=== PATIENT | female | born 1965 | race Caucasian/White ===

== ENCOUNTER 2017-03-29 11:20 | Emergency (ER) | payer MEDICAID ==
[~2017-03-29] VITALS: Ht 5451.6 cm; Wt 82.3 kg
[~2017-03-29 11:20] MED LIST: ALBU8HFA PO; BACL10TA PO; BECL8.7A7 INH; FURO-150 PO; GABA600T2 PO; HYDR-3972 PO; LOSA25TA21 PO; MIRT15TA8 PO; SUMA50TA PO
[2017-03-29 12:47] LABS: URINE HCG NEGATIVE (NEG)
[2017-03-29 13:00] LABS: URINE AMPHETAMINE SCREEN NEGATIVE (Neg); URINE BARBITUATE SCREEN NEGATIVE (Neg); URINE BENZODIAZEPINES SCREEN NEGATIVE (Neg); URINE CANNABINOID SCREEN POSITIVE (Neg); URINE COCAINE SCREEN NEGATIVE (Neg); URINE METHADONE SCREEN NEGATIVE (Neg); URINE OPIATE SCREEN NEGATIVE (Neg); URINE PHENCYCLIDINE SCREEN NEGATIVE (Neg)
[2017-03-29 13:05] LABS: CLARITY,URINE SLIGHTLY CLOUDY (Clear); COLOR,URINE STRAW (Yellow); GLUCOSE, URINE NEGATIVE (Neg); KETONES,URINE NEGATIVE (Neg); LEUKOCYTE ESTERASE ,URINE NEGATIVE (Neg); NITRITES, URINE NEGATIVE (Neg); OCCULT BLOOD,URINE NEGATIVE (Neg); PROTEIN,URINE NEGATIVE (Neg); UROBILINOGEN,URINE 0.2 E.U/dL (0.2-1.0)
[2017-03-29 13:10] LABS: UA COLLECTION TYPE NON-SPECIFIED
[2017-03-29 13:11] LABS: BACTERIA,URINE 1+ /HPF (Neg); SQUAMOUS EPITHELIAL CELL,UR MODERATE /LPF (FEW)
[2017-03-29 13:12] LABS: RBC,URINE 0-2 /HPF (0-2); WBC,URINE 0-4 /HPF (0-4)
[2017-03-29 14:47] LABS: BASOPHILS % (AUTO) 0.4 % (0-1); EOSINOPHILS # (AUTO) 0.2 X10'3 (0-0.9); EOSINOPHILS % (AUTO) 2.7 % (0-6); HEMATOCRIT 45.1 % (35.0-45.0); HEMOGLOBIN 15.4 g/dl (12.0-16.0); LYMPHOCYTES # (AUTO) 2.8 X10'3 (1.1-4.8); LYMPHOCYTES % (AUTO) 34.3 % (21-51); MEAN CORPUSCULAR HEMOGLOBIN 30.4 PG (27.0-31.0); MEAN CORPUSCULAR VOLUME 89.3 FL (78-98); MONOCYTES # (AUTO) 0.5 X10'3 (0-0.9); MONOCYTES % (AUTO) 6.4 % (2-12); NEUTROPHILS # (AUTO) 4.6 X10'3 (1.8-7.7); NEUTROPHILS % (AUTO) 56.2 % (42-75); PLATELET COUNT 206 X10'3 (140-440); RED BLOOD COUNT 5.05 X10'6 (4.20-5.60); RED CELL DISTRIBUTION WIDTH 14.4 % (11.5-14.5); WHITE BLOOD COUNT 8.2 X10'3 (4.5-11.0)
[2017-03-29] MEDS ORDERED: MELO-102 PO (14:51)
[2017-03-29] MEDS ORDERED: ALBU18HF2 INH (14:51)
[2017-03-29] MEDS ORDERED: IPRA3AMP9 IH (14:51)
[2017-03-29] MEDS ORDERED: MIRT15TA PO (14:51)
[2017-03-29] MEDS ORDERED: GABA600T2 PO (14:51)
[2017-03-29] MEDS ORDERED: FENO67CA PO (14:51)
[2017-03-29] MEDS ORDERED: PANT40SU2 PO (14:51)
[2017-03-29] MEDS ORDERED: MOME0.242 IH (14:51)
[2017-03-29 15:12] LABS: ALANINE AMINOTRANSFERASE 26 U/L (12-78); ALBUMIN 3.5 G/DL (3.4-5.0); ALBUMIN/GLOBULIN RATIO 0.9 (1.1-1.5); ALKALINE PHOSPHATASE 85 IU/L (46-116); ANION GAP 9 (8-16); ASPARTATE AMINO TRANSFERASE 17 U/L (10-37); BILIRUBIN,TOTAL 0.3 MG/DL (0.1-1.0); BLOOD UREA NITROGEN 10 MG/DL (7-18); BUN/CREATININE RATIO 12.5 (6.6-38.0); CALCIUM 8.8 MG/DL (8.5-10.1); CHLORIDE 102 MMOL/L (99-107); ETHANOL < 0.010 GM/DL (0.0-0.010); GLUCOSE 133 MG/DL (70-104); POTASSIUM 3.4 MMOL/L (3.5-5.1); SODIUM 137 MMOL/L (135-145); TOTAL CARBON DIOXIDE 26.4 MMOL/L (24-32); TOTAL PROTEIN 7.3 G/DL (6.4-8.2); eGFR 76 ML/MIN
[2017-03-29] MEDS ORDERED: PALI819S (15:27)
[2017-03-29] MEDS ORDERED: ARIP400S3 IM (15:27)
[2017-03-29] MEDS ORDERED: albuterol 2.5 MG/3 ML nebule NEB PRN (15:40)
[2017-03-29] MEDS ORDERED: furosemide 20MG tablet PO PRN (15:40)
[2017-03-29] MEDS ORDERED: ipratropium/albuterol 3ml nebule IH PRN (15:45)
[2017-03-29] MEDS: naproxen 500mg tablet PO SCH (18:03)
[2017-03-29] MEDS: HYDROcodone/acetaminophen 10/325mg tab PO PRN (19:47)
[2017-03-29] MEDS: gabapentin 300mg capsule PO SCH (20:50)
[2017-03-29] MEDS: mirtazapine 15mg tablet PO SCH (20:50)
[2017-03-29] MEDS: baclofen 10mg tablet PO SCH (20:58)
[2017-03-30] MEDS ORDERED: pantoprazole 40mg Tablet.DR PO SCH (07:30)
[2017-03-30] MEDS ORDERED: fluticasone furoate 100MCG/puff inhaler IH SCH (08:00)
[2017-03-30] MEDS: fenofibrate 48mg tablet PO SCH ×2 (08:30→08:48)
[2017-03-30] MEDS: naproxen 500mg tablet PO SCH ×3 (08:47→20:29)
[2017-03-30] MEDS: gabapentin 300mg capsule PO SCH ×3 (08:50→20:30)
[2017-03-30] MEDS: baclofen 10mg tablet PO SCH ×2 (08:50→20:24)
[2017-03-30] MEDS: HYDROcodone/acetaminophen 10/325mg tab PO PRN (15:30)
[2017-03-30] MEDS ORDERED: hydrOXYzine 25 MG tablet PO PRN (16:25)
[2017-03-30] MEDS: mirtazapine 15mg tablet PO SCH (20:30)
[2017-03-31 05:38] VITALS: BP 138/79
== END 2017-03-31 06:46 ==
LOC: ER 11:21
DX: F29 Unspecified psychosis not due to a substance or known physiological condition (principal); F20.9 Schizophrenia, unspecified; F41.9 Anxiety disorder, unspecified; F32.9 Major depressive disorder, single episode, unspecified; J44.9 Chronic obstructive pulmonary disease, unspecified; K21.9 Gastro-esophageal reflux disease without esophagitis; E78.00 Pure hypercholesterolemia, unspecified; G89.29 Other chronic pain; I25.2 Old myocardial infarction; F17.200 Nicotine dependence, unspecified, uncomplicated; Z86.73 Personal history of transient ischemic attack (TIA), and cerebral infarction without residual deficits; Z79.899 Other long term (current) drug therapy; Z88.0 Allergy status to penicillin; Z88.8 Allergy status to other drugs, medicaments and biological substances
CPT/HCPCS: 36415; 80053; 80305; 80320; 81001; 81025; 84443; 85025; 94760; 99285; Q0177

== ENCOUNTER 2018-04-09 09:43 | Emergency (ER) | payer MEDICAID ==
[~2018-04-09] VITALS: Ht 157.5 cm; Wt 88.3 kg
[~2018-04-09 09:43] MED LIST changes: +ALBU18HF2 INH; -ALBU8HFA PO; +ARIP400S3 IM; +FENO67CA PO; +GABA600T13 PO; -GABA600T2 PO; +IPRA3AMP9 IH; -LOSA25TA21 PO; +MELO-102 PO; +MIRT15TA PO; -MIRT15TA8 PO; +MOME0.242 IH; +PALI819S; +PANT40SU2 PO; -SUMA50TA PO
[2018-04-09 09:49] VITALS: BP 140/96
[2018-04-09] MEDS ORDERED: dexamethasone sod phosphate 10mg/ml inj PO STA (10:07)
== END 2018-04-09 10:30 | disposition home or self-care (01) ==
LOC: ER 09:43
DX: G89.29 Other chronic pain (principal); M54.5 Low back pain; G43.909 Migraine, unspecified, not intractable, without status migrainosus; E78.00 Pure hypercholesterolemia, unspecified; I25.2 Old myocardial infarction; J44.9 Chronic obstructive pulmonary disease, unspecified; K21.9 Gastro-esophageal reflux disease without esophagitis; M19.90 Unspecified osteoarthritis, unspecified site; Z86.73 Personal history of transient ischemic attack (TIA), and cerebral infarction without residual deficits; Z88.0 Allergy status to penicillin; Z88.8 Allergy status to other drugs, medicaments and biological substances; Z79.899 Other long term (current) drug therapy
CPT/HCPCS: 99284; J1100

== ENCOUNTER 2019-04-27 12:29 | Inpatient (IN) | payer MEDICAID ==
[~2019-04-27] VITALS: Ht 157.5 cm; Wt 86.8 kg
[2019-04-27] MEDS: normal saline 1000ml 1,000 ML IV SCH ×3 (11:33→17:31)
[~2019-04-27 12:29] MED LIST changes: -ARIP400S3 IM; -BACL10TA PO; -HYDR-3972 PO; -IPRA3AMP9 IH; -MELO-102 PO; -MIRT15TA PO; -MOME0.242 IH; -PALI819S; +RISP4TAB PO
[2019-04-27 12:58] LABS: BASOPHILS # (AUTO) 0.1 X10'3 (0-0.2); BASOPHILS % (AUTO) 0.5 % (0-1); EOSINOPHILS % (AUTO) 0.2 % (0-6); HEMATOCRIT 39.2 % (35.0-45.0); HEMOGLOBIN 13.2 g/dl (12.0-16.0); LYMPHOCYTES % (AUTO) 8.8 % (21-51); MEAN CORPUSCULAR HGB CONC 33.6 g/dL (33.0-36.5); MEAN CORPUSCULAR VOLUME 89.4 FL (78-98); MEAN PLATELET VOLUME 8.5 FL (7.4-10.4); MONOCYTES # (AUTO) 1.9 X10'3 (0-0.9); MONOCYTES % (AUTO) 8.2 % (2-12); NEUTROPHILS # (AUTO) 18.7 X10'3 (1.8-7.7); NEUTROPHILS % (AUTO) 82.3 % (42-75); PLATELET COUNT 230 X10'3 (140-440); RED BLOOD COUNT 4.39 X10'6 (4.20-5.60); RED CELL DISTRIBUTION WIDTH 13.9 % (11.5-14.5); WHITE BLOOD COUNT 22.7 X10'3 (4.5-11.0)
[2019-04-27 13:19] LABS: ALANINE AMINOTRANSFERASE 25 U/L (12-78); ALBUMIN 3.1 G/DL (3.4-5.0); ALBUMIN/GLOBULIN RATIO 0.7 (1.1-1.5); ALKALINE PHOSPHATASE 106 IU/L (46-116); ANION GAP 7 (8-16); ASPARTATE AMINO TRANSFERASE 18 U/L (10-37); BILIRUBIN,TOTAL 0.5 MG/DL (0.1-1.0); BLOOD UREA NITROGEN 7 MG/DL (7-18); BUN/CREATININE RATIO 7.4 (6.6-38.0); CALCIUM 8.3 MG/DL (8.5-10.1); CHLORIDE 99 MMOL/L (99-107); CREATININE 0.94 MG/DL (0.40-0.90); GLUCOSE 117 MG/DL (70-104); POTASSIUM 3.6 MMOL/L (3.5-5.1); SODIUM 132 MMOL/L (135-145); TOTAL CARBON DIOXIDE 26.2 MMOL/L (24-32); TOTAL PROTEIN 7.7 G/DL (6.4-8.2); eGFR 63 ML/MIN
[2019-04-27] MEDS ORDERED: levoFLOXACIN-Levaquin 750MG/D5 150 ML IV ONE (13:40)
[2019-04-27] MEDS ORDERED: ipratropium/albuterol 3ml nebule NEB ONE (13:40)
[2019-04-27] MEDS ORDERED: acetaminophen 325mg tablet PO ONE (14:50)
[2019-04-27] MEDS ORDERED: magnesium 2GM in 50ml NS 50 ML IV PRN (15:35)
[2019-04-27] MEDS ORDERED: ondansetron/PF 4mg/2ml inj IV PRN (15:35)
[2019-04-27] MEDS ORDERED: magnesium Cl slow-release 64mg tablet PO PRN (15:35)
[2019-04-27] MEDS ORDERED: HYDROcodone/acetaminophen 5mg/325mg tablet PO PRN (15:35)
[2019-04-27] MEDS ORDERED: potassium Cl 20 mEq SR tablet PO PRN ×2 (15:35)
[2019-04-27] MEDS ORDERED: acetaminophen 325mg tablet PO PRN ×2 (15:35)
[2019-04-27] MEDS ORDERED: potassium CL 10mEq/100ml bag 100 ML IV PRN ×2 (15:35)
[2019-04-27] MEDS ORDERED: mag hydrox/Alum hydrox/simeth 30ml oral suspension PO PRN (15:35)
[2019-04-27] MEDS ORDERED: morphine 2 MG/ML inj. syringe IV PRN (15:35)
[2019-04-27] MEDS ORDERED: magnesium 4gm in 100ml NS 100 ML IV PRN (15:35)
[2019-04-27] MEDS ORDERED: BUPR100T5 PO (15:51)
[2019-04-27] MEDS: albuterol 2.5 MG/3 ML nebule NEB SCH ×3 (16:00→23:22)
--- NOTE | 2019-04-27 16:11 | NUR ---
pt reports it is ok to give info to these family members dad peri [phone] step mom [phone] sister lei [phone]
--- NOTE | 2019-04-27 16:39 | NUR ---
Called to give report, no RN available to take report.
[2019-04-27 16:51] LABS: CLARITY,URINE SLIGHTLY CLOUDY (Clear); GLUCOSE, URINE NEGATIVE (Neg); KETONES,URINE 15 mg/dl (Neg); LEUKOCYTE ESTERASE ,URINE NEGATIVE (Neg); NITRITES, URINE NEGATIVE (Neg); OCCULT BLOOD,URINE TRACE-INTACT (Neg); PROTEIN,URINE TRACE mg/dl (Neg)
[2019-04-27 16:57] LABS: COLOR,URINE DARK YELLOW (Yellow); UA COLLECTION TYPE CLN CATCH MIDSTREAM
[2019-04-27 16:58] LABS: BACTERIA,URINE 2+ /HPF (Neg); MUCUS STRANDS NONE SEEN /LPF (Neg); SQUAMOUS EPITHELIAL CELL,UR MANY /LPF (FEW); WBC,URINE 0-4 /HPF (0-4)
--- NOTE | 2019-04-27 16:59 | NUR ---
Patient in room ED 16. I have received report from Bertin ER Nurse and had the opportunity to ask questions and assume patient care.
--- NOTE | 2019-04-27 17:28 | NUR ---
Patient oriented to room, call light within reach, fluids set up, Patient on 2L o2, A&O x4. VS stable.
[2019-04-27 17:29] VITALS: BP 95/50
--- NOTE | 2019-04-27 18:25 | NUR ---
Problems reprioritized. Patient report given, questions answered & plan of care reviewed with Ro GRIFFIN.
--- NOTE | 2019-04-27 18:30 | NUR ---
Patient in room [facility] 344. I have received report from Glory GRIFFIN and had the opportunity to ask questions and assume patient care.
[2019-04-27 20:00] VITALS: BP 104/53
[2019-04-27] MEDS: K and/or MAG REPLACEMENT MC SCH (20:00)
[2019-04-27] MEDS: budesonide 0.5mg/2ml UD nebule IH SCH (20:07)
[2019-04-27] MEDS: docusate sod 100mg capsule PO SCH (20:08)
[2019-04-27] MEDS: methylPREDNISolone sod succ/PF 40mg inj. IV SCH (20:10)
[2019-04-27] MEDS: VANCOmycin 1250MG/NS 250ml Bag 250 ML IV SCH (20:11)
[2019-04-27] MEDS: nicotine 14mg patch - 24hr TD SCH (20:12)
--- NOTE | 2019-04-27 20:13 | NUR ---
Patient refused Nicotine patch. Explained benefits of Nicotine patch, patient decline at this time.
[2019-04-27] MEDS: gabapentin 300mg capsule PO SCH (20:26)
[2019-04-27] MEDS: risperiDONE 2mg tablet PO SCH (20:26)
[2019-04-27] MEDS ORDERED: temazepam 15mg capsule PO PRN (21:00)
[2019-04-28] MEDS: albuterol 2.5 MG/3 ML nebule NEB SCH ×6 (02:47→23:40)
[2019-04-28] MEDS ORDERED: VANCOMYCIN LEVEL IV ONE (04:30)
[2019-04-28] MEDS: VANCOmycin 1250MG/NS 250ml Bag 250 ML IV SCH ×2 (04:47→16:49)
[2019-04-28] MEDS: normal saline 1000ml 1,000 ML IV SCH ×2 (04:49→16:51)
[2019-04-28 04:55] LABS: BASOPHILS % (AUTO) 0.2 % (0-1); EOSINOPHILS % (AUTO) 0 % (0-6); HEMATOCRIT 40.2 % (35.0-45.0); HEMOGLOBIN 13.3 g/dl (12.0-16.0); LYMPHOCYTES # (AUTO) 1.7 X10'3 (1.1-4.8); MEAN CORPUSCULAR HEMOGLOBIN 30.1 PG (27.0-31.0); MEAN CORPUSCULAR HGB CONC 33.1 g/dL (33.0-36.5); MEAN CORPUSCULAR VOLUME 90.9 FL (78-98); MEAN PLATELET VOLUME 9.1 FL (7.4-10.4); MONOCYTES # (AUTO) 0.6 X10'3 (0-0.9); MONOCYTES % (AUTO) 2.8 % (2-12); NEUTROPHILS # (AUTO) 18.5 X10'3 (1.8-7.7); PLATELET COUNT 237 X10'3 (140-440); RED BLOOD COUNT 4.42 X10'6 (4.20-5.60); RED CELL DISTRIBUTION WIDTH 13.9 % (11.5-14.5); WHITE BLOOD COUNT 20.8 X10'3 (4.5-11.0)
[2019-04-28 05:01] LABS: ALANINE AMINOTRANSFERASE 23 U/L (12-78); ALBUMIN 2.6 G/DL (3.4-5.0); ALBUMIN/GLOBULIN RATIO 0.5 (1.1-1.5); ALKALINE PHOSPHATASE 104 IU/L (46-116); ANION GAP 10 (8-16); ASPARTATE AMINO TRANSFERASE 21 U/L (10-37); BILIRUBIN,TOTAL 0.4 MG/DL (0.1-1.0); BLOOD UREA NITROGEN 9 MG/DL (7-18); CALCIUM 8.1 MG/DL (8.5-10.1); CHLORIDE 103 MMOL/L (99-107); CREATININE 0.82 MG/DL (0.40-0.90); GLUCOSE 153 MG/DL (70-104); MAGNESIUM 2.1 MG/DL (1.5-2.4); SODIUM 137 MMOL/L (135-145); TOTAL CARBON DIOXIDE 23.9 MMOL/L (24-32); TOTAL PROTEIN 7.4 G/DL (6.4-8.2); eGFR 73 ML/MIN
[2019-04-28 05:05] LABS: POTASSIUM 3.6 MMOL/L (3.5-5.1)
--- NOTE | 2019-04-28 06:48 | NUR ---
Problems reprioritized. Patient report given, questions answered & plan of care reviewed with Pat GRIFFIN.
--- NOTE | 2019-04-28 07:06 | NUR ---
Patient in room [facility] 344. I have received report from Ro GRIFFIN and had the opportunity to ask questions and assume patient care.
[2019-04-28 08:00] VITALS: BP 102/73
[2019-04-28] MEDS: nicotine 14mg patch - 24hr TD SCH (08:00)
[2019-04-28] MEDS: K and/or MAG REPLACEMENT MC SCH ×2 (08:00→20:00)
[2019-04-28] MEDS: budesonide 0.5mg/2ml UD nebule IH SCH ×2 (08:00→18:51)
[2019-04-28] MEDS: methylPREDNISolone sod succ/PF 40mg inj. IV SCH ×2 (08:03→21:11)
[2019-04-28] MEDS: docusate sod 100mg capsule PO SCH ×2 (08:04→21:12)
[2019-04-28] MEDS: gabapentin 300mg capsule PO SCH ×3 (08:04→21:11)
[2019-04-28] MEDS: pantoprazole 40mg Tablet.DR PO SCH (08:04)
[2019-04-28] MEDS: buPROPion SR 100mg tab PO SCH (08:04)
[2019-04-28] MEDS: levoFLOXACIN-Levaquin 500mg/D5 100 ML IV SCH (08:06)
[2019-04-28 11:00] VITALS: BP 139/112
--- NOTE | 2019-04-28 16:30 | NUR ---
Problems reprioritized. Patient report given, questions answered & plan of care reviewed with Ro GRIFFIN.
--- NOTE | 2019-04-28 18:31 | NUR ---
Patient in room [facility] 344. I have received report from Pat GRIFFIN and had the opportunity to ask questions and assume patient care.
[2019-04-28 20:10] VITALS: BP 107/60
[2019-04-28] MEDS: lactobacillus rhamnosus 10,000 MMU CELLS/CAPSULE PO SCH (21:11)
[2019-04-28] MEDS: risperiDONE 2mg tablet PO SCH (21:14)
[2019-04-29] VITALS: BP 113/70
[2019-04-29] MEDS: albuterol 2.5 MG/3 ML nebule NEB SCH ×6 (02:56→23:44)
[2019-04-29] MEDS: normal saline 1000ml 1,000 ML IV SCH (04:17)
[2019-04-29] MEDS ORDERED: VANCOMYCIN LEVEL IV ONE (04:30)
[2019-04-29 04:51] LABS: BASOPHILS # (AUTO) 0.1 X10'3 (0-0.2); LYMPHOCYTES # (AUTO) 2.1 X10'3 (1.1-4.8); MEAN CORPUSCULAR HEMOGLOBIN 30.3 PG (27.0-31.0); MEAN CORPUSCULAR VOLUME 91.1 FL (78-98)
[2019-04-29 04:53] LABS: BASOPHILS % (AUTO) 0.3 % (0-1); EOSINOPHILS % (AUTO) 0 % (0-6); HEMATOCRIT 39.5 % (35.0-45.0); HEMOGLOBIN 13.2 g/dl (12.0-16.0); LYMPHOCYTES % (AUTO) 7.9 % (21-51); MEAN CORPUSCULAR HGB CONC 33.3 g/dL (33.0-36.5); MEAN PLATELET VOLUME 9.3 FL (7.4-10.4); MONOCYTES # (AUTO) 0.8 X10'3 (0-0.9); NEUTROPHILS # (AUTO) 23.6 X10'3 (1.8-7.7); NEUTROPHILS % (AUTO) 88.8 % (42-75); PLATELET COUNT 249 X10'3 (140-440); RED BLOOD COUNT 4.34 X10'6 (4.20-5.60); RED CELL DISTRIBUTION WIDTH 13.9 % (11.5-14.5)
[2019-04-29 05:09] LABS: WHITE BLOOD COUNT 26.6 X10'3 (4.5-11.0)
--- NOTE | 2019-04-29 05:12 | NUR ---
Critical WBC 26.6, notified that patient is on Vancomycin and Levaquin and afebrile. No new orders.
[2019-04-29 05:26] LABS: ALANINE AMINOTRANSFERASE 25 U/L (12-78); ALBUMIN 2.6 G/DL (3.4-5.0); ALBUMIN/GLOBULIN RATIO 0.6 (1.1-1.5); ALKALINE PHOSPHATASE 92 IU/L (46-116); ANION GAP 10 (8-16); ASPARTATE AMINO TRANSFERASE 10 U/L (10-37); BILIRUBIN,TOTAL 0.2 MG/DL (0.1-1.0); BLOOD UREA NITROGEN 12 MG/DL (7-18); BUN/CREATININE RATIO 15.2 (6.6-38.0); CALCIUM 8.5 MG/DL (8.5-10.1); CHLORIDE 104 MMOL/L (99-107); CREATININE 0.79 MG/DL (0.40-0.90); GLUCOSE 162 MG/DL (70-104); MAGNESIUM 2.2 MG/DL (1.5-2.4); POTASSIUM 4.2 MMOL/L (3.5-5.1); SODIUM 137 MMOL/L (135-145); TOTAL CARBON DIOXIDE 22.7 MMOL/L (24-32); TOTAL PROTEIN 7.2 G/DL (6.4-8.2); VANCOMYCIN,TROUGH 9.7 UG/ML (6.0-14.0); eGFR 77 ML/MIN
[2019-04-29] MEDS: VANCOmycin 1250MG/NS 250ml Bag 250 ML IV SCH (05:59)
[2019-04-29 06:40] LABS: PLATELET ESTIMATE NORMAL; TOTAL CELLS COUNTED 100
[2019-04-29 06:48] LABS: SCHISTOCYTES FEW
--- NOTE | 2019-04-29 06:52 | NUR ---
Problems reprioritized. Patient report given, questions answered & plan of care reviewed with Joseph GRIFFIN.
--- NOTE | 2019-04-29 07:03 | NUR ---
Patient in room [facility] 344. I have received report from GABY RAMESH and had the opportunity to ask questions and assume patient care.
[2019-04-29 07:09] VITALS: BP 133/79
[2019-04-29] MEDS: gabapentin 300mg capsule PO SCH ×3 (07:32→20:13)
[2019-04-29] MEDS: pantoprazole 40mg Tablet.DR PO SCH (07:32)
[2019-04-29] MEDS: methylPREDNISolone sod succ/PF 40mg inj. IV SCH ×2 (07:32→20:12)
[2019-04-29] MEDS: docusate sod 100mg capsule PO SCH ×2 (07:33→20:00)
[2019-04-29] MEDS: buPROPion SR 100mg tab PO SCH (07:33)
[2019-04-29] MEDS: levoFLOXACIN-Levaquin 500mg/D5 100 ML IV SCH (07:33)
[2019-04-29] MEDS: lactobacillus rhamnosus 10,000 MMU CELLS/CAPSULE PO SCH ×2 (07:33→20:13)
[2019-04-29] MEDS: nicotine 14mg patch - 24hr TD SCH (08:00)
[2019-04-29] MEDS: K and/or MAG REPLACEMENT MC SCH ×2 (08:00→20:00)
[2019-04-29] MEDS: budesonide 0.5mg/2ml UD nebule IH SCH ×2 (08:36→19:42)
[2019-04-29 11:04] VITALS: BP 115/60
--- NOTE | 2019-04-29 18:20 | NUR ---
Received report from GABY Ruiz. Patient is awake and alert on room air, in no apparent distress. Call light and items of frequent use within reach. Will continue to monitor.
--- NOTE | 2019-04-29 18:44 | NUR ---
Problems reprioritized. Patient report given, questions answered & plan of care reviewed with mike lopez.
[2019-04-29 20:00] VITALS: BP 154/88
[2019-04-29] MEDS: risperiDONE 2mg tablet PO SCH (20:13)
[2019-04-30] VITALS: BP 122/68
[2019-04-30] MEDS: normal saline 1000ml 1,000 ML IV SCH (03:33)
--- NOTE | 2019-04-30 03:44 | NUR ---
Primary Care Nurse GABY Ruiz stated in report that patient is saline locked and no longer on IV fluids per MD order. Hence, no IV fluids were administered this shift. Will need to clarify order since eMAR shows patient is still on fluids.
[2019-04-30 05:19] LABS: BASOPHILS % (AUTO) 0.3 % (0-1); EOSINOPHILS % (AUTO) 0 % (0-6); HEMATOCRIT 38.3 % (35.0-45.0); HEMOGLOBIN 12.5 g/dl (12.0-16.0); LYMPHOCYTES # (AUTO) 1.7 X10'3 (1.1-4.8); LYMPHOCYTES % (AUTO) 11.3 % (21-51); MEAN CORPUSCULAR HEMOGLOBIN 29.6 PG (27.0-31.0); MEAN CORPUSCULAR HGB CONC 32.6 g/dL (33.0-36.5); MEAN PLATELET VOLUME 8.7 FL (7.4-10.4); MONOCYTES # (AUTO) 0.7 X10'3 (0-0.9); MONOCYTES % (AUTO) 4.5 % (2-12); NEUTROPHILS # (AUTO) 12.9 X10'3 (1.8-7.7); NEUTROPHILS % (AUTO) 83.9 % (42-75); PLATELET COUNT 290 X10'3 (140-440); RED BLOOD COUNT 4.21 X10'6 (4.20-5.60); RED CELL DISTRIBUTION WIDTH 14.3 % (11.5-14.5); WHITE BLOOD COUNT 15.3 X10'3 (4.5-11.0)
[2019-04-30 05:30] LABS: ALANINE AMINOTRANSFERASE 38 U/L (12-78); ALBUMIN 2.6 G/DL (3.4-5.0); ALBUMIN/GLOBULIN RATIO 0.6 (1.1-1.5); ALKALINE PHOSPHATASE 100 IU/L (46-116); ANION GAP 6 (8-16); ASPARTATE AMINO TRANSFERASE 22 U/L (10-37); BILIRUBIN,TOTAL 0.1 MG/DL (0.1-1.0); BLOOD UREA NITROGEN 11 MG/DL (7-18); BUN/CREATININE RATIO 16.7 (6.6-38.0); CALCIUM 8.2 MG/DL (8.5-10.1); CHLORIDE 109 MMOL/L (99-107); CREATININE 0.66 MG/DL (0.40-0.90); GLUCOSE 134 MG/DL (70-104); MAGNESIUM 2.1 MG/DL (1.5-2.4); POTASSIUM 4.6 MMOL/L (3.5-5.1); SODIUM 141 MMOL/L (135-145); TOTAL PROTEIN 6.8 G/DL (6.4-8.2); eGFR > 90 ML/MIN
--- NOTE | 2019-04-30 06:15 | NUR ---
Problems reprioritized. Patient report given, questions answered & plan of care reviewed with GABY Ruiz.
--- NOTE | 2019-04-30 06:37 | NUR ---
Patient in room [facility] 344. I have received report from GABY MARES and had the opportunity to ask questions and assume patient care.
[2019-04-30 07:00] VITALS: BP 159/98
[2019-04-30] MEDS: methylPREDNISolone sod succ/PF 40mg inj. IV SCH (07:08)
[2019-04-30] MEDS: albuterol 2.5 MG/3 ML nebule NEB SCH ×2 (07:30→12:00)
[2019-04-30] MEDS: budesonide 0.5mg/2ml UD nebule IH SCH (07:30)
[2019-04-30] MEDS: docusate sod 100mg capsule PO SCH (08:00)
[2019-04-30] MEDS: nicotine 14mg patch - 24hr TD SCH (08:00)
[2019-04-30] MEDS: K and/or MAG REPLACEMENT MC SCH (08:00)
[2019-04-30] MEDS: levoFLOXACIN-Levaquin 500mg/D5 100 ML IV SCH (09:22)
[2019-04-30] MEDS: lactobacillus rhamnosus 10,000 MMU CELLS/CAPSULE PO SCH (09:23)
[2019-04-30] MEDS: gabapentin 300mg capsule PO SCH ×2 (09:23→12:29)
[2019-04-30] MEDS: pantoprazole 40mg Tablet.DR PO SCH (09:24)
[2019-04-30] MEDS: buPROPion SR 100mg tab PO SCH (09:24)
[2019-04-30] MEDS ORDERED: ALBU2.5V7 NEB (10:52)
[2019-04-30] MEDS ORDERED: PRED10TA23 PO (10:52)
[2019-04-30] MEDS ORDERED: LEVO500T2 PO (10:52)
--- NOTE | 2019-04-30 11:30 | NUR ---
pt up walking around Addendum: 04/30/19 at 1130 by Laura OSMAN Amended: Links added.
[2019-04-30 11:43] VITALS: BP 158/96
--- NOTE | 2019-04-30 12:04 | NUR ---
Student documentation: I have reviewed all interventions, assessments performed and documented by Laura FARRELL
--- NOTE | 2019-04-30 12:04 | NUR ---
Student Medication Administration: , all medication were reviewed, dispensed, administered and documented per hospital policy by Laura FARRELL
--- NOTE | 2019-04-30 12:32 | NUR ---
pt eating lunch waiting for ride refused tx radha mckeon at bedside aware odalys Addendum: 04/30/19 at 1233 by Kassie Jolly RT Amended: Links added.
[2019-04-30 12:33] VITALS: BP 158/96
[2019-04-30] MEDS ORDERED: SULF1TAB49 PO (13:18)
--- NOTE | 2019-04-30 13:20 | NUR ---
Patient A&O with no complaints. Discussed with patient discharge instructions and new prescriptions. Patient aware she has follow up appointment with her PCP Dr. Mayer on 05/08/19 at 1115. All questions regarding discharge answered. Patient is ready for DC but awaiting for her spouse to arrive for transportation.
[2019-04-30] MEDS ORDERED: AZIT500T2 PO (13:21)
[2019-04-30 13:33] VITALS: BP 149/99
--- NOTE | 2019-04-30 13:42 | NUR ---
Patient dc'd with all personal belongings accompanied by x1 staff and friend. Patient alert and oriented with no complaints and no s/s/s of apparent distress.
[2019-05-01] MEDS ORDERED: VANCOMYCIN LEVEL IV ONE (04:30)
== END 2019-04-30 13:42 | disposition home or self-care (01) | DRG 720 ==
LOC: ER 12:30 → ED HOLD 15:33 → EDBEDREQ 16:14 → SUR 3N 17:18
PROVIDERS: ADMIT Internal Medicine; ATTEND Internal Medicine
DX: A41.9 Sepsis, unspecified organism (principal); J18.9 Pneumonia, unspecified organism; I50.9 Heart failure, unspecified; E87.1 Hypo-osmolality and hyponatremia; E78.00 Pure hypercholesterolemia, unspecified; F17.210 Nicotine dependence, cigarettes, uncomplicated; F20.9 Schizophrenia, unspecified; K21.9 Gastro-esophageal reflux disease without esophagitis; J44.0 Chronic obstructive pulmonary disease with (acute) lower respiratory infection; G62.9 Polyneuropathy, unspecified; J44.1 Chronic obstructive pulmonary disease with (acute) exacerbation; M81.0 Age-related osteoporosis without current pathological fracture; I25.2 Old myocardial infarction; Z79.899 Other long term (current) drug therapy; Z86.73 Personal history of transient ischemic attack (TIA), and cerebral infarction without residual deficits; Z87.01 Personal history of pneumonia (recurrent); Z88.0 Allergy status to penicillin
CPT/HCPCS: 36415; 71045; 80053; 80202; 81001; 83605; 83735; 84484; 85025; 87040; 87081; 93005; 93306; 94640; 94760; 99285; G0378; J1956; J2920; J3370; J7030; J7626

== ENCOUNTER 2019-05-06 16:01 | Inpatient (IN) | payer MEDICAID ==
[~2019-05-06] VITALS: Ht 157.5 cm; Wt 89.8 kg
[~2019-05-06 16:01] MED LIST changes: +ALBU2.5V7 NEB; +AZIT500T2 PO; -BECL8.7A7 INH; +BUPR100T5 PO; -FENO67CA PO; +PRED10TA23 PO; +SULF1TAB49 PO
[2019-05-06 17:21] LABS: BASOPHILS % (AUTO) 0.2 % (0-1); EOSINOPHILS % (AUTO) 0 % (0-6); HEMATOCRIT 38.8 % (35.0-45.0); HEMOGLOBIN 12.8 g/dl (12.0-16.0); LYMPHOCYTES % (AUTO) 17.3 % (21-51); MEAN CORPUSCULAR HEMOGLOBIN 29.9 PG (27.0-31.0); MEAN CORPUSCULAR VOLUME 90.4 FL (78-98); MEAN PLATELET VOLUME 7.2 FL (7.4-10.4); MONOCYTES # (AUTO) 0.7 X10'3 (0-0.9); MONOCYTES % (AUTO) 5.8 % (2-12); NEUTROPHILS # (AUTO) 8.7 X10'3 (1.8-7.7); NEUTROPHILS % (AUTO) 76.7 % (42-75); PLATELET COUNT 355 X10'3 (140-440); RED BLOOD COUNT 4.29 X10'6 (4.20-5.60); RED CELL DISTRIBUTION WIDTH 14.8 % (11.5-14.5); WHITE BLOOD COUNT 11.3 X10'3 (4.5-11.0)
[2019-05-06 17:32] LABS: ALANINE AMINOTRANSFERASE 40 U/L (12-78); ALBUMIN/GLOBULIN RATIO 0.8 (1.1-1.5); ALKALINE PHOSPHATASE 110 IU/L (46-116); ANION GAP 4 (8-16); ASPARTATE AMINO TRANSFERASE 25 U/L (10-37); BILIRUBIN,TOTAL 0.1 MG/DL (0.1-1.0); BLOOD UREA NITROGEN 15 MG/DL (7-18); BUN/CREATININE RATIO 16.3 (6.6-38.0); CALCIUM 8.4 MG/DL (8.5-10.1); CHLORIDE 97 MMOL/L (99-107); CREATININE 0.92 MG/DL (0.40-0.90); GLUCOSE 129 MG/DL (70-104); POTASSIUM 4.7 MMOL/L (3.5-5.1); SODIUM 133 MMOL/L (135-145); TOTAL CARBON DIOXIDE 32.2 MMOL/L (24-32); eGFR 64 ML/MIN
[2019-05-06] MEDS ORDERED: albuterol 2.5 MG/3 ML nebule NEB ONE (17:45)
[2019-05-06] MEDS ORDERED: predniSONE 20 mg tablet PO ONE (17:45)
[2019-05-06 17:56] LABS: TOTAL CELLS COUNTED 100; TOXIC GRANULATION 3+
[2019-05-06 17:57] LABS: PLATELET ESTIMATE NORMAL
--- NOTE | 2019-05-06 18:25 | NUR ---
placed o2 3 liters via nc to maintain sats above 93 %
[2019-05-06] MEDS ORDERED: normal saline 1000ML IV soln IVB ONE (18:30)
--- NOTE | 2019-05-06 18:48 | NUR ---
resp at bedside
[2019-05-06] MEDS ORDERED: LEVO500T89 PO (19:22)
[2019-05-06] MEDS ORDERED: AZIT250T29 PO (19:22)
[2019-05-06] MEDS ORDERED: BACDS PO (19:22)
[2019-05-06] MEDS ORDERED: levoFLOXACIN-Levaquin 500mg/D5 100 ML IV ONE (19:25)
[2019-05-06] MEDS ORDERED: AZIT-63 PO (20:24)
[2019-05-06] MEDS ORDERED: PRED10TA PO (20:24)
[2019-05-06] MEDS ORDERED: acetaminophen 325mg tablet PO PRN (22:45)
[2019-05-06] MEDS ORDERED: mag hydrox/Alum hydrox/simeth 30ml oral suspension PO PRN (22:45)
[2019-05-06] MEDS ORDERED: magnesium hydroxide 30ml (MOM) UD suspension PO PRN (22:45)
[2019-05-06] MEDS ORDERED: ondansetron/PF 4mg/2ml inj IV PRN (22:45)
[2019-05-06 23:30] VITALS: BP 128/72
[2019-05-06] MEDS: albuterol 2.5 MG/3 ML nebule NEB PRN (23:32)
--- NOTE | 2019-05-07 | NUR ---
Patient in room PCU 3014. I have received report from GABY Wilder and had the opportunity to ask questions and assume patient care.
[2019-05-07 02:00] VITALS: BP 158/97
[2019-05-07] MEDS: albuterol 2.5 MG/3 ML nebule NEB PRN ×4 (02:15→21:01)
[2019-05-07 02:26] LABS: ABG BASE EXCESS 4.8 mmol/L (-2.0-3.0); ABG HCO3 32.7 mmol/L (22.0-26.0); ABG OXYGEN SATURATION 93.3 % (95-98); ABG PH (T) 7.337 (7.350-7.450); ABG PO2 (T) 63.6 mmHg (83-108); ALLEN'S TEST POSITIVE; FCOHb 2.6 % (0.5-1.5); FMetHb 0.2 % (0.3-1.12); FO2Hb 90.7 % (94-100); PATIENT TEMPERATURE 36.5; TOTAL HEMOGLOBIN 13.9 G/dl (12.0-16.0)
[2019-05-07 04:59] LABS: BASOPHILS % (AUTO) 0.2 % (0-1); EOSINOPHILS % (AUTO) 0 % (0-6); HEMATOCRIT 39.4 % (35.0-45.0); HEMOGLOBIN 13.2 g/dl (12.0-16.0); LYMPHOCYTES # (AUTO) 1.9 X10'3 (1.1-4.8); LYMPHOCYTES % (AUTO) 19.3 % (21-51); MEAN CORPUSCULAR HEMOGLOBIN 30.5 PG (27.0-31.0); MEAN CORPUSCULAR HGB CONC 33.5 g/dL (33.0-36.5); MEAN CORPUSCULAR VOLUME 90.9 FL (78-98); MEAN PLATELET VOLUME 7.4 FL (7.4-10.4); MONOCYTES # (AUTO) 0.5 X10'3 (0-0.9); MONOCYTES % (AUTO) 4.8 % (2-12); NEUTROPHILS # (AUTO) 7.5 X10'3 (1.8-7.7); NEUTROPHILS % (AUTO) 75.7 % (42-75); PLATELET COUNT 336 X10'3 (140-440); RED BLOOD COUNT 4.34 X10'6 (4.20-5.60); RED CELL DISTRIBUTION WIDTH 14.5 % (11.5-14.5)
[2019-05-07 05:22] LABS: ALANINE AMINOTRANSFERASE 39 U/L (12-78); ALBUMIN 2.9 G/DL (3.4-5.0); ALBUMIN/GLOBULIN RATIO 0.7 (1.1-1.5); ALKALINE PHOSPHATASE 97 IU/L (46-116); ANION GAP 3 (8-16); ASPARTATE AMINO TRANSFERASE 26 U/L (10-37); BILIRUBIN,TOTAL 0.2 MG/DL (0.1-1.0); BLOOD UREA NITROGEN 11 MG/DL (7-18); BUN/CREATININE RATIO 17.2 (6.6-38.0); CALCIUM 8.4 MG/DL (8.5-10.1); CHLORIDE 100 MMOL/L (99-107); CREATININE 0.64 MG/DL (0.40-0.90); GLUCOSE 119 MG/DL (70-104); POTASSIUM 4.6 MMOL/L (3.5-5.1); SODIUM 136 MMOL/L (135-145); TOTAL CARBON DIOXIDE 33.1 MMOL/L (24-32); TOTAL PROTEIN 6.9 G/DL (6.4-8.2); eGFR > 90 ML/MIN
[2019-05-07 06:00] VITALS: BP 115/60
--- NOTE | 2019-05-07 06:10 | NUR ---
Patient in room PCU 3014. I have received report from GABY delong and had the opportunity to ask questions and assume patient care.
--- NOTE | 2019-05-07 06:34 | NUR ---
Problems reprioritized. Patient report given, questions answered & plan of care reviewed with GABY Cote.
[2019-05-07] MEDS: pantoprazole 40mg Tablet.DR PO SCH (08:12)
[2019-05-07] MEDS: levoFLOXACIN 500mg tablet PO SCH (08:12)
[2019-05-07] MEDS: gabapentin 300mg capsule PO SCH ×3 (08:12→20:35)
[2019-05-07] MEDS: buPROPion SR 100mg tab PO SCH (08:13)
[2019-05-07] MEDS: methylPREDNISolone sod succ/PF 40mg inj. IV SCH ×3 (08:13→21:15)
[2019-05-07] MEDS: heparin, porcine 5000 units/ml vial SQ SCH ×2 (08:13→20:35)
[2019-05-07] MEDS ORDERED: magnesium 4gm in 100ml NS 100 ML IV PRN (09:05)
[2019-05-07] MEDS: K and/or MAG REPLACEMENT MC SCH ×2 (09:05→19:21)
[2019-05-07] MEDS ORDERED: potassium Cl 20 mEq SR tablet PO PRN ×2 (09:05)
[2019-05-07] MEDS ORDERED: potassium CL 10mEq/100ml bag 100 ML IV PRN (09:05)
[2019-05-07] MEDS ORDERED: magnesium Cl slow-release 64mg tablet PO PRN (09:05)
[2019-05-07 18:00] VITALS: BP 131/72
--- NOTE | 2019-05-07 18:30 | NUR ---
Problems reprioritized. Patient report given, questions answered & plan of care reviewed with GABY Ferrell.
[2019-05-07] MEDS: lactobacillus rhamnosus 10,000 MMU CELLS/CAPSULE PO SCH (20:35)
[2019-05-07] MEDS ORDERED: risperiDONE 2mg tablet PO SCH (21:00)
[2019-05-07] MEDS ORDERED: ipratropium/albuterol 3ml nebule NEB PRN (21:20)
[2019-05-07 22:00] VITALS: BP 118/71
[2019-05-08] MEDS: ipratropium/albuterol 3ml nebule NEB SCH ×4 (00:01→11:07)
[2019-05-08 01:51] VITALS: BP 128/71
[2019-05-08] MEDS: methylPREDNISolone sod succ/PF 40mg inj. IV SCH ×3 (02:07→14:55)
[2019-05-08 06:00] VITALS: BP 128/84
--- NOTE | 2019-05-08 06:14 | NUR ---
Problems reprioritized. Patient report given, questions answered & plan of care reviewed with Kassandra GRIFFIN.
[2019-05-08 06:26] LABS: BASOPHILS % (AUTO) 0.2 % (0-1); EOSINOPHILS % (AUTO) 0 % (0-6); HEMATOCRIT 41.7 % (35.0-45.0); HEMOGLOBIN 13.8 g/dl (12.0-16.0); LYMPHOCYTES # (AUTO) 2.1 X10'3 (1.1-4.8); LYMPHOCYTES % (AUTO) 19.9 % (21-51); MEAN CORPUSCULAR HEMOGLOBIN 29.8 PG (27.0-31.0); MEAN CORPUSCULAR HGB CONC 33.1 g/dL (33.0-36.5); MEAN PLATELET VOLUME 7.6 FL (7.4-10.4); MONOCYTES # (AUTO) 0.3 X10'3 (0-0.9); MONOCYTES % (AUTO) 2.6 % (2-12); NEUTROPHILS # (AUTO) 8.3 X10'3 (1.8-7.7); NEUTROPHILS % (AUTO) 77.3 % (42-75); PLATELET COUNT 347 X10'3 (140-440); RED BLOOD COUNT 4.63 X10'6 (4.20-5.60); RED CELL DISTRIBUTION WIDTH 14.7 % (11.5-14.5); WHITE BLOOD COUNT 10.7 X10'3 (4.5-11.0)
--- NOTE | 2019-05-08 06:39 | NUR ---
Patient in room PCU 3014. I have received report from Mariaelena GRIFFIN and had the opportunity to ask questions and assume patient care.
[2019-05-08 06:42] LABS: ALANINE AMINOTRANSFERASE 38 U/L (12-78); ALBUMIN 3.1 G/DL (3.4-5.0); ALBUMIN/GLOBULIN RATIO 0.8 (1.1-1.5); ALKALINE PHOSPHATASE 93 IU/L (46-116); ANION GAP 3 (8-16); ASPARTATE AMINO TRANSFERASE 21 U/L (10-37); BILIRUBIN,TOTAL 0.2 MG/DL (0.1-1.0); BLOOD UREA NITROGEN 22 MG/DL (7-18); BUN/CREATININE RATIO 34.9 (6.6-38.0); CALCIUM 8.8 MG/DL (8.5-10.1); CHLORIDE 100 MMOL/L (99-107); CREATININE 0.63 MG/DL (0.40-0.90); GLUCOSE 137 MG/DL (70-104); MAGNESIUM 2.2 MG/DL (1.5-2.4); PHOSPHORUS 3.4 MG/DL (2.3-4.5); POTASSIUM 4.5 MMOL/L (3.5-5.1); SODIUM 137 MMOL/L (135-145); TOTAL CARBON DIOXIDE 33.7 MMOL/L (24-32); TOTAL PROTEIN 7.2 G/DL (6.4-8.2); eGFR > 90 ML/MIN
[2019-05-08] MEDS: gabapentin 300mg capsule PO SCH ×2 (07:24→12:43)
[2019-05-08] MEDS: levoFLOXACIN 500mg tablet PO SCH (07:24)
[2019-05-08] MEDS: lactobacillus rhamnosus 10,000 MMU CELLS/CAPSULE PO SCH (07:24)
[2019-05-08] MEDS: pantoprazole 40mg Tablet.DR PO SCH (07:24)
[2019-05-08] MEDS: buPROPion SR 100mg tab PO SCH (07:25)
[2019-05-08] MEDS: heparin, porcine 5000 units/ml vial SQ SCH (07:25)
[2019-05-08] MEDS: K and/or MAG REPLACEMENT MC SCH (08:00)
--- NOTE | 2019-05-08 08:12 | NUR ---
I have reviewed and agree with all medications administered and interventions performed by [facility] Student(emiliano kerr) Addendum: 05/08/19 at 0812 by Salud VEGA Amended: Links added.
[2019-05-08 11:00] VITALS: BP 133/77
[2019-05-08] MEDS ORDERED: LACT1CAP26 PO (12:49)
[2019-05-08] MEDS ORDERED: BUDE10.22 INH (12:49)
[2019-05-08] MEDS ORDERED: PRED10TA23 PO (12:49)
[2019-05-08] MEDS ORDERED: LEVO500T89 PO (12:49)
--- NOTE | 2019-05-08 15:44 | NUR ---
Per MD orders, patient is stable for DC home. Discharge packet reviewed with patient and all questions answered to patient satisfaction. New prescriptions called in to pharmacy of preference. Patient will make own follow up appt. PIV discontinued; cannula intact. Tele monitoring discontinued. All belongings sent with patient. Ambulated to private vehicle accompanied by nurse on duty and family friend.
== END 2019-05-08 15:25 | disposition home or self-care (01) | DRG 140 ==
LOC: ER 16:02 → ED HOLD 22:44 → EDBEDREQ 23:17 → PCU 3S 23:41
PROVIDERS: ADMIT Internal Medicine; ATTEND Family Medicine
DX: J44.0 Chronic obstructive pulmonary disease with (acute) lower respiratory infection (principal); E87.2 Acidosis; I50.9 Heart failure, unspecified; E78.00 Pure hypercholesterolemia, unspecified; F17.200 Nicotine dependence, unspecified, uncomplicated; F20.9 Schizophrenia, unspecified; F32.9 Major depressive disorder, single episode, unspecified; F41.9 Anxiety disorder, unspecified; G43.909 Migraine, unspecified, not intractable, without status migrainosus; G62.9 Polyneuropathy, unspecified; J20.9 Acute bronchitis, unspecified; G89.29 Other chronic pain; K21.9 Gastro-esophageal reflux disease without esophagitis; M19.90 Unspecified osteoarthritis, unspecified site; M54.9 Dorsalgia, unspecified; R06.03 Acute respiratory distress; J44.1 Chronic obstructive pulmonary disease with (acute) exacerbation; M85.80 Other specified disorders of bone density and structure, unspecified site; R09.02 Hypoxemia; Z86.73 Personal history of transient ischemic attack (TIA), and cerebral infarction without residual deficits; I25.2 Old myocardial infarction; Z88.0 Allergy status to penicillin; Z88.8 Allergy status to other drugs, medicaments and biological substances; Z99.81 Dependence on supplemental oxygen; Z71.6 Tobacco abuse counseling
CPT/HCPCS: 36415; 36600; 71045; 80053; 82803; 83735; 84100; 84145; 85018; 85025; 87081; 87502; 87503; 94640; 94760; 96365; 99285; G0378; J1644; J1956; J2920; J7030; J7512

== ENCOUNTER 2020-03-26 10:59 | Emergency (ER) | payer MEDICAID ==
[~2020-03-26] VITALS: Ht 157.5 cm; Wt 97.7 kg
[~2020-03-26 10:59] MED LIST changes: -ALBU2.5V7 NEB; -AZIT500T2 PO; +BUDE10.22 INH; -FURO-150 PO; +LACT1CAP26 PO; +LEVO500T89 PO; -PRED10TA23 PO; -SULF1TAB49 PO
[2020-03-26 11:07] VITALS: BP 141/91
[2020-03-26] MEDS ORDERED: PRED20TA PO (11:14)
[2020-03-26] MEDS ORDERED: ALBU8HFA PO (11:14)
[2020-03-26] MEDS ORDERED: DOXY100C43 PO (11:14)
[2020-03-26] MEDS ORDERED: dexamethasone sod phosphate 10mg/ml inj PO STA (11:29)
== END 2020-03-26 11:40 | disposition home or self-care (01) ==
LOC: ER 10:59
DX: J20.9 Acute bronchitis, unspecified (principal); R06.02 Shortness of breath; R05 Cough; Z20.822 Contact with and (suspected) exposure to COVID-19; G43.909 Migraine, unspecified, not intractable, without status migrainosus; I50.9 Heart failure, unspecified; E78.00 Pure hypercholesterolemia, unspecified; I25.2 Old myocardial infarction; J44.9 Chronic obstructive pulmonary disease, unspecified; K21.9 Gastro-esophageal reflux disease without esophagitis; G89.29 Other chronic pain; F41.9 Anxiety disorder, unspecified; F32.9 Major depressive disorder, single episode, unspecified; F20.9 Schizophrenia, unspecified; M19.90 Unspecified osteoarthritis, unspecified site; Z72.0 Tobacco use; Z86.73 Personal history of transient ischemic attack (TIA), and cerebral infarction without residual deficits; Z87.01 Personal history of pneumonia (recurrent); Z88.8 Allergy status to other drugs, medicaments and biological substances; Z79.2 Long term (current) use of antibiotics; Z79.899 Other long term (current) drug therapy
CPT/HCPCS: 36415; 87635; 99283; 99406; J1100

== ENCOUNTER 2020-06-06 10:54 | Emergency (ER) | payer MEDICAID ==
[~2020-06-06] VITALS: Ht 157.5 cm; Wt 96.4 kg
[2020-06-06 11:51] VITALS: BP 144/87
[2020-06-06] MEDS ORDERED: PRED20TA PO (13:44)
[2020-06-06] MEDS ORDERED: predniSONE 20 mg tablet PO ONE (13:45)
== END 2020-06-06 14:15 | disposition home or self-care (01) ==
LOC: ER 10:54
DX: M54.41 Lumbago with sciatica, right side (principal); K59.00 Constipation, unspecified; G43.909 Migraine, unspecified, not intractable, without status migrainosus; I50.9 Heart failure, unspecified; E78.00 Pure hypercholesterolemia, unspecified; I25.2 Old myocardial infarction; J44.9 Chronic obstructive pulmonary disease, unspecified; K21.9 Gastro-esophageal reflux disease without esophagitis; M19.90 Unspecified osteoarthritis, unspecified site; G89.29 Other chronic pain; F41.9 Anxiety disorder, unspecified; F32.9 Major depressive disorder, single episode, unspecified; F20.9 Schizophrenia, unspecified; Z86.73 Personal history of transient ischemic attack (TIA), and cerebral infarction without residual deficits; Z87.01 Personal history of pneumonia (recurrent); Z72.0 Tobacco use; Z88.8 Allergy status to other drugs, medicaments and biological substances; Z79.2 Long term (current) use of antibiotics; Z79.899 Other long term (current) drug therapy
CPT/HCPCS: 99283; J7512

== ENCOUNTER 2020-06-30 12:24 | Emergency (ER) | payer MEDICAID ==
[~2020-06-30] VITALS: Ht 157.5 cm; Wt 98.7 kg
[~2020-06-30 12:24] MED LIST changes: +PRED20TA PO
--- NOTE | 2020-06-30 13:05 | NUR ---
left ankle and foot pain on painscale 09/04
[2020-06-30 14:50] VITALS: BP 154/92
== END 2020-06-30 15:08 | disposition home or self-care (01) ==
LOC: ER 12:24
DX: M79.605 Pain in left leg (principal); G43.909 Migraine, unspecified, not intractable, without status migrainosus; I50.9 Heart failure, unspecified; E78.00 Pure hypercholesterolemia, unspecified; I25.2 Old myocardial infarction; J44.9 Chronic obstructive pulmonary disease, unspecified; K21.9 Gastro-esophageal reflux disease without esophagitis; M19.90 Unspecified osteoarthritis, unspecified site; G89.29 Other chronic pain; F41.9 Anxiety disorder, unspecified; F32.9 Major depressive disorder, single episode, unspecified; G62.9 Polyneuropathy, unspecified; F20.9 Schizophrenia, unspecified; Z86.73 Personal history of transient ischemic attack (TIA), and cerebral infarction without residual deficits; Z88.8 Allergy status to other drugs, medicaments and biological substances; Z79.899 Other long term (current) drug therapy
CPT/HCPCS: 73590; 73610; 73630; 93971; 99284

== ENCOUNTER 2020-07-23 12:05 | Emergency (ER) | payer MEDICAID ==
[~2020-07-23] VITALS: Ht 157.5 cm; Wt 95.9 kg
[~2020-07-23 12:05] MED LIST changes: -PRED20TA PO
[2020-07-23] MEDS ORDERED: dexamethasone 4mg tablet PO ONE (12:30)
[2020-07-23] MEDS ORDERED: ipratropium/albuterol 3ml nebule NEB ONE (13:10)
--- NOTE | 2020-07-23 13:11 | NUR ---
MD NOTIFIED OF PT'S C/O LEFT ARM PAIN THAT RADIATES TO HER LEFT SCAPULA, MD TO PLACE ORDERS, NO EKG, PER MD
[2020-07-23 13:28] LABS: BASOPHILS # (AUTO) 0.1 X10'3 (0-0.2); BASOPHILS % (AUTO) 0.4 % (0-1); EOSINOPHILS # (AUTO) 0.1 X10'3 (0-0.9); EOSINOPHILS % (AUTO) 0.3 % (0-6); HEMATOCRIT 38.7 % (35.0-45.0); HEMOGLOBIN 12.9 g/dl (12.0-16.0); LYMPHOCYTES # (AUTO) 2.7 X10'3 (1.1-4.8); LYMPHOCYTES % (AUTO) 15.3 % (21-51); MEAN CORPUSCULAR HEMOGLOBIN 29.4 PG (27.0-31.0); MEAN CORPUSCULAR HGB CONC 33.3 g/dL (33.0-36.5); MEAN CORPUSCULAR VOLUME 88.2 FL (78-98); MEAN PLATELET VOLUME 7.7 FL (7.4-10.4); MONOCYTES # (AUTO) 1.7 X10'3 (0-0.9); MONOCYTES % (AUTO) 9.6 % (2-12); NEUTROPHILS # (AUTO) 13.2 X10'3 (1.8-7.7); NEUTROPHILS % (AUTO) 74.4 % (42-75); PLATELET COUNT 319 X10'3 (140-440); RED BLOOD COUNT 4.39 X10'6 (4.20-5.60); RED CELL DISTRIBUTION WIDTH 14.3 % (11.5-14.5); WHITE BLOOD COUNT 17.7 X10'3 (4.5-11.0)
[2020-07-23 13:40] LABS: D-DIMER 0.31 MG/L FEU (0-0.50)
[2020-07-23 13:45] LABS: ALANINE AMINOTRANSFERASE 22 U/L (12-78); ALBUMIN 3.1 G/DL (3.4-5.0); ALBUMIN/GLOBULIN RATIO 0.6 (1.1-1.5); ALKALINE PHOSPHATASE 115 IU/L (46-116); ANION GAP 10 (8-16); ASPARTATE AMINO TRANSFERASE 17 U/L (10-37); BILIRUBIN,TOTAL 0.3 MG/DL (0.1-1.0); BLOOD UREA NITROGEN 7 MG/DL (7-18); BUN/CREATININE RATIO 9.3 (6.6-38.0); CHLORIDE 95 MMOL/L (99-107); CREATININE 0.75 MG/DL (0.40-0.90); GLUCOSE 112 MG/DL (70-104); POTASSIUM 4.1 MMOL/L (3.5-5.1); SODIUM 132 MMOL/L (135-145); TOTAL CARBON DIOXIDE 26.7 MMOL/L (24-32); TOTAL PROTEIN 7.9 G/DL (6.4-8.2); eGFR 81 ML/MIN
[2020-07-23] MEDS ORDERED: acetaminophen 325mg tablet PO ONE (13:45)
[2020-07-23] MEDS ORDERED: ALBU8HFA PO (13:49)
[2020-07-23] MEDS ORDERED: PRED20TA PO (13:49)
[2020-07-23] MEDS ORDERED: DOXY100C43 PO (13:49)
[2020-07-23] MEDS ORDERED: ketorolac trometh. 30mg/ml inj. IV ONE (15:00)
[2020-07-23 15:30] VITALS: BP 123/82
== END 2020-07-23 15:36 | disposition home or self-care (01) ==
LOC: ER 12:07
DX: J45.901 Unspecified asthma with (acute) exacerbation (principal); J20.9 Acute bronchitis, unspecified; F17.210 Nicotine dependence, cigarettes, uncomplicated; Z71.6 Tobacco abuse counseling; I11.0 Hypertensive heart disease with heart failure; E78.00 Pure hypercholesterolemia, unspecified; K21.9 Gastro-esophageal reflux disease without esophagitis; G89.29 Other chronic pain; M54.9 Dorsalgia, unspecified; F41.9 Anxiety disorder, unspecified; F32.9 Major depressive disorder, single episode, unspecified; F20.9 Schizophrenia, unspecified; Z88.0 Allergy status to penicillin; Z79.899 Other long term (current) drug therapy
CPT/HCPCS: 36415; 71045; 80053; 83880; 84484; 85025; 85379; 93005; 94640; 94760; 96374; 99285; 99406; J1885

== ENCOUNTER 2021-03-21 12:12 | Emergency (ER) | payer MEDICAID ==
[~2021-03-21] VITALS: Ht 157.5 cm; Wt 95.2 kg
[~2021-03-21 12:12] MED LIST changes: -LEVO500T89 PO; +LEVO500T90 PO; -RISP4TAB PO; +RISP4TAB49 PO
[2021-03-21 13:12] LABS: CLARITY,URINE CLEAR (Clear); COLOR,URINE YELLOW (Yellow); GLUCOSE, URINE NEGATIVE (Neg); KETONES,URINE NEGATIVE (Neg); LEUKOCYTE ESTERASE ,URINE NEGATIVE (Neg); NITRITES, URINE NEGATIVE (Neg); OCCULT BLOOD,URINE NEGATIVE (Neg); PROTEIN,URINE NEGATIVE (Neg); UA COLLECTION TYPE CLN CATCH MIDSTREAM; UROBILINOGEN,URINE 0.2 E.U/dL (0.2-1.0)
[2021-03-21 13:13] LABS: URINE HCG NEGATIVE (NEG)
[2021-03-21] MEDS ORDERED: FLUC150T PO (15:16)
[2021-03-21] MEDS ORDERED: METR-159 PO (15:16)
== END 2021-03-21 15:47 | disposition home or self-care (01) ==
LOC: ER 12:12
DX: K64.4 Residual hemorrhoidal skin tags (principal); N76.0 Acute vaginitis; B96.89 Other specified bacterial agents as the cause of diseases classified elsewhere; G43.909 Migraine, unspecified, not intractable, without status migrainosus; G62.9 Polyneuropathy, unspecified; I50.9 Heart failure, unspecified; E78.00 Pure hypercholesterolemia, unspecified; I25.2 Old myocardial infarction; J44.9 Chronic obstructive pulmonary disease, unspecified; K21.9 Gastro-esophageal reflux disease without esophagitis; M19.90 Unspecified osteoarthritis, unspecified site; Z88.1 Allergy status to other antibiotic agents; Z88.8 Allergy status to other drugs, medicaments and biological substances; Z79.899 Other long term (current) drug therapy
CPT/HCPCS: 36415; 81003; 81025; 87491; 99283

== ENCOUNTER 2022-10-22 13:26 | Inpatient (IN) | payer MEDICAID ==
[~2022-10-22] VITALS: Ht 157.5 cm; Wt 77.4 kg
[~2022-10-22 13:26] MED LIST changes: +LEVO-65 PO; -LEVO500T90 PO
[2022-10-22 13:48] LABS: BASOPHILS % (AUTO) 0.3 % (0-1); EOSINOPHILS # (AUTO) 0.1 X10'3 (0-0.9); HEMOGLOBIN 12.4 g/dl (12.0-16.0); LYMPHOCYTES # (AUTO) 2.3 X10'3 (1.1-4.8); LYMPHOCYTES % (AUTO) 18.8 % (21-51); MEAN CORPUSCULAR HEMOGLOBIN 29.5 PG (27.0-31.0); MEAN CORPUSCULAR HGB CONC 32.7 g/dL (33.0-36.5); MEAN CORPUSCULAR VOLUME 90.3 FL (78-98); MEAN PLATELET VOLUME 8.3 FL (7.4-10.4); MONOCYTES # (AUTO) 1.3 X10'3 (0-0.9); MONOCYTES % (AUTO) 10.3 % (2-12); NEUTROPHILS # (AUTO) 8.5 X10'3 (1.8-7.7); NEUTROPHILS % (AUTO) 69.6 % (42-75); PLATELET COUNT 268 X10'3 (140-440); RED BLOOD COUNT 4.21 X10'6 (4.20-5.60); RED CELL DISTRIBUTION WIDTH 14.6 % (11.5-14.5); WHITE BLOOD COUNT 12.2 X10'3 (4.5-11.0)
[2022-10-22] MEDS ORDERED: ipratropium/albuterol 3ml nebule NEB ONE (13:55)
[2022-10-22 14:01] VITALS: PULSE 98; RESP 18; O2SAT 95
[2022-10-22 14:06] VITALS: PULSE 97; RESP 18; O2SAT 100
[2022-10-22 14:06] LABS: ALANINE AMINOTRANSFERASE 31 U/L (12-78); ALBUMIN 2.9 G/DL (3.4-5.0); ALBUMIN/GLOBULIN RATIO 0.7 (1.1-1.5); ALKALINE PHOSPHATASE 107 IU/L (46-116); ANION GAP 4 (8-16); ASPARTATE AMINO TRANSFERASE 27 U/L (10-37); BILIRUBIN,TOTAL 0.3 MG/DL (0.1-1.0); BLOOD UREA NITROGEN 8 MG/DL (7-18); BUN/CREATININE RATIO 11.9 (10.0-20.0); CALCIUM 8.6 MG/DL (8.5-10.1); CHLORIDE 97 MMOL/L (99-107); CREATININE 0.67 MG/DL (0.40-0.90); GLUCOSE 124 MG/DL (70-104); POTASSIUM 3.7 MMOL/L (3.5-5.1); SODIUM 132 MMOL/L (135-145); TOTAL CARBON DIOXIDE 30.6 MMOL/L (24-32); TOTAL PROTEIN 7.2 G/DL (6.4-8.2); eCRCL 76 ML/MIN; eGFR > 90 ML/MIN
[2022-10-22] MEDS ORDERED: aspirin 81mg tab.chew PO ONE (14:10)
[2022-10-22] MEDS ORDERED: nitroGLYCERIN 0.4mg SUBLingual tab SL PRN ×3 (14:10→18:10)
[2022-10-22 14:14] LABS: PRO BRAIN NATRIURETIC PEPTIDE 781 PG/ML (0-125)
--- NOTE | 2022-10-22 14:33 | NUR ---
EKG ORDERED. MACHINE IS BROKEN AND IS CURRENTLY BEING REPAIRED. PT PLACED ON CLOTH PRINTER HELPER UNTIL REPAIR COMPLETE.
--- NOTE | 2022-10-22 14:40 | NUR ---
MACHINE HAS BEEN REPAIRED AND EKG IS BEING COMPLETED AT THIS TIME.
--- NOTE | 2022-10-22 16:20 | NUR ---
PT TROP [phone]. RN NOTIFIED DR LEONG.
[2022-10-22] MEDS ORDERED: normal saline 1000ml 1,000 ML IV ONE (17:00)
[2022-10-22] MEDS ORDERED: albuterol 2.5 MG/3 ML nebule CONTNEB PRN (17:00)
[2022-10-22] MEDS ORDERED: nitroGLYCERIN 0.4mg/hour patch TD ONE (17:00)
[2022-10-22] MEDS ORDERED: enoxaparin 100mg/ml syringe SUBCUT ONE (17:00)
[2022-10-22] MEDS ORDERED: methylPREDNISolone sod succ 125mg/2ml vial IV ONE (17:00)
--- NOTE | 2022-10-22 17:04 | NUR ---
PER DR LEONG RUN NS AT 50CC/HR. GABY LEMUS ORD.
[2022-10-22 17:17] LABS: APTT 27 SECONDS (22-32); PROTHROMBIN TIME 10.3 SECONDS (9.0-12.0)
[2022-10-22 17:18] LABS: C-REACTIVE PROTEIN 16.77 MG/DL (0.0-0.5); MAGNESIUM 1.6 MG/DL (1.5-2.4)
[2022-10-22 17:28] VITALS: PULSE 99; RESP 32; O2SAT 90
[2022-10-22] MEDS: normal saline 1000ml 1,000 ML IV SCH (17:39)
[2022-10-22] MEDS ORDERED: potassium Cl 40MEQ/1/2NS 520ml 520 ML IV PRN (18:10)
[2022-10-22] MEDS ORDERED: metoprolol tartrate 1mg/ml inj IV PRN (18:10)
[2022-10-22] MEDS ORDERED: acetaminophen 650mg rectal suppository RC PRN (18:10)
[2022-10-22] MEDS ORDERED: magnesium hydroxide 30ml (MOM) UD suspension PO PRN (18:10)
[2022-10-22] MEDS ORDERED: azithromycin/NS 500mg/250ml 250 ML IV ONE ×2 (18:10→19:35)
[2022-10-22] MEDS ORDERED: LORazepam 0.5 MG tablet PO PRN (18:10)
[2022-10-22] MEDS ORDERED: acetaminophen 325mg tablet PO PRN ×2 (18:10)
[2022-10-22] MEDS ORDERED: mag hydrox/Alum hydrox/simeth 30ml oral suspension PO PRN (18:10)
[2022-10-22] MEDS ORDERED: potassium Cl 20 mEq SR tablet PO PRN ×2 (18:10)
[2022-10-22] MEDS ORDERED: metoclopramide 5 mg/ml inj IV PRN (18:10)
[2022-10-22] MEDS ORDERED: normal saline 1000ml 1,000 ML IV SCH (18:10)
[2022-10-22] MEDS ORDERED: aminophylline 250mg/10ml inj. IV PRN (18:10)
[2022-10-22] MEDS ORDERED: ondansetron 4mg rapidly disintigrating tab PO PRN (18:10)
[2022-10-22] MEDS ORDERED: CefTRIAXone/D5W-Rocephin 1gm 50 ML IV ONE (18:10)
[2022-10-22] MEDS ORDERED: magnesium Cl slow-release 64mg tablet PO PRN (18:10)
[2022-10-22] MEDS ORDERED: ondansetron/PF 4mg/2ml inj IV PRN (18:10)
[2022-10-22] MEDS ORDERED: regadenoson 0.4mg/5ml syringe IV PRN (18:10)
[2022-10-22] MEDS ORDERED: magnesium 2GM in 50ml NS 50 ML IV PRN (18:10)
[2022-10-22] MEDS ORDERED: bisacodyl 10mg suppository rectal RC PRN (18:10)
[2022-10-22] MEDS ORDERED: magnesium 4gm in 100ml NS 100 ML IV PRN (18:10)
[2022-10-22] MEDS ORDERED: morphine 2 MG/ML inj. syringe IV PRN ×2 (18:10)
[2022-10-22 19:00] VITALS: PULSE 109; RESP 31; O2SAT 92
[2022-10-22] MEDS ORDERED: furosemide 40mg/4ml inj IV SCH (20:00)
[2022-10-22] MEDS: docusate sod 100mg capsule PO SCH (20:00)
[2022-10-22] MEDS: K and/or MAG REPLACEMENT MC SCH (20:00)
--- NOTE | 2022-10-22 20:00 | NUR ---
NITRO PATCH REMOVED R/T LOW BP
[2022-10-22] MEDS ORDERED: temazepam 15mg capsule PO PRN (21:00)
[2022-10-22] MEDS: ipratropium/albuterol 3ml nebule NEB SCH (23:00)
[2022-10-23] VITALS (21 sets, daily range): BP systolic 100–135; BP diastolic 56–83; PULSE 74–104; RESP 18–24; TEMP 96.9–98; O2SAT 88–97
[2022-10-23 02:33] LABS: BASOPHILS % (AUTO) 0.1 % (0-1); EOSINOPHILS % (AUTO) 0 % (0-6); HEMATOCRIT 37.7 % (35.0-45.0); HEMOGLOBIN 12.3 g/dl (12.0-16.0); LYMPHOCYTES # (AUTO) 0.8 X10'3 (1.1-4.8); MEAN CORPUSCULAR HEMOGLOBIN 29.4 PG (27.0-31.0); MEAN CORPUSCULAR HGB CONC 32.5 g/dL (33.0-36.5); MEAN CORPUSCULAR VOLUME 90.6 FL (78-98); MEAN PLATELET VOLUME 8.6 FL (7.4-10.4); MONOCYTES # (AUTO) 0.4 X10'3 (0-0.9); MONOCYTES % (AUTO) 3.8 % (2-12); NEUTROPHILS # (AUTO) 9.8 X10'3 (1.8-7.7); NEUTROPHILS % (AUTO) 89.1 % (42-75); PLATELET COUNT 258 X10'3 (140-440); RED BLOOD COUNT 4.17 X10'6 (4.20-5.60); RED CELL DISTRIBUTION WIDTH 14.6 % (11.5-14.5)
[2022-10-23 03:12] LABS: ALANINE AMINOTRANSFERASE 28 U/L (12-78); ALBUMIN 2.7 G/DL (3.4-5.0); ALBUMIN/GLOBULIN RATIO 0.6 (1.1-1.5); ALKALINE PHOSPHATASE 98 IU/L (46-116); ANION GAP 6 (8-16); ASPARTATE AMINO TRANSFERASE 23 U/L (10-37); BILIRUBIN,TOTAL 0.1 MG/DL (0.1-1.0); BLOOD UREA NITROGEN 6 MG/DL (7-18); BUN/CREATININE RATIO 10.2 (10.0-20.0); CALCIUM 8.4 MG/DL (8.5-10.1); CHLORIDE 101 MMOL/L (99-107); CREATININE 0.59 MG/DL (0.40-0.90); GLUCOSE 155 MG/DL (70-104); POTASSIUM 4.4 MMOL/L (3.5-5.1); SODIUM 136 MMOL/L (135-145); TOTAL CARBON DIOXIDE 29.5 MMOL/L (24-32); TOTAL PROTEIN 7.2 G/DL (6.4-8.2); eCRCL 86 ML/MIN; eGFR > 90 ML/MIN
[2022-10-23 03:20] LABS: CHOL/HDL RATIO 3.8 (0.00-4.99); CHOLESTEROL 160 MG/DL (0-200); HDL CHOLESTEROL 42 MG/DL (35-60); LDL CHOLESTEROL 91 MG/DL (50-100); MAGNESIUM 1.9 MG/DL (1.5-2.4); THYROID STIMULATING HORMONE 0.23 ulU/ml (0.34-4.50); TRIGLYCERIDES 78 MG/DL (20-135)
[2022-10-23] MEDS: ipratropium/albuterol 3ml nebule NEB PRN (04:16)
[2022-10-23] MEDS: normal saline 1000ml 1,000 ML IV SCH ×2 (04:28→14:11)
[2022-10-23 04:32] LABS: URINE AMPHETAMINE SCREEN NEGATIVE (Neg); URINE BARBITUATE SCREEN NEGATIVE (Neg); URINE BENZODIAZEPINES SCREEN NEGATIVE (Neg); URINE CANNABINOID SCREEN NEGATIVE (Neg); URINE COCAINE SCREEN NEGATIVE (Neg); URINE METHADONE SCREEN NEGATIVE (Neg); URINE OPIATE SCREEN NEGATIVE (Neg); URINE PHENCYCLIDINE SCREEN NEGATIVE (Neg)
[2022-10-23] MEDS: ipratropium/albuterol 3ml nebule NEB SCH ×5 (07:22→23:00)
[2022-10-23] MEDS: guaiFENesin ER 600mg tablet PO SCH ×2 (07:28→19:19)
[2022-10-23] MEDS: azithromycin/NS 500mg/250ml 250 ML IV SCH (07:28)
[2022-10-23] MEDS: aspirin 81mg tab.chew PO SCH (07:28)
[2022-10-23] MEDS: docusate sod 100mg capsule PO SCH ×2 (07:29→19:19)
[2022-10-23] MEDS: K and/or MAG REPLACEMENT MC SCH ×2 (08:00→20:00)
--- NOTE | 2022-10-23 08:45 | NUR ---
FOR D/C PLANNING: ANNIE BUCHANAN ENGINE OILER: [phone]
--- NOTE | 2022-10-23 10:20 | NUR ---
Patient in room PCU 3023. I have received report from GABY Hernandez in ER and had the opportunity to ask questions and assume patient care. Pt arrived on the unit from ER.
--- NOTE | 2022-10-23 11:39 | NUR ---
Pt off the floor via WC to Mike.
--- NOTE | 2022-10-23 13:10 | NUR ---
Pt back on unit from [facility].
[2022-10-23] MEDS ORDERED: ARIP15TA19 PO (17:45)
[2022-10-23] MEDS ORDERED: PANT40TA54 PO (17:45)
[2022-10-23] MEDS ORDERED: GABA600T13 PO (17:48)
--- NOTE | 2022-10-23 18:13 | NUR ---
Problems reprioritized. Patient report given, questions answered & plan of care reviewed with GABY Pickett.
--- NOTE | 2022-10-23 22:00 | NUR ---
Pt's IV would not flush, nurse tried placing a new IV and was unsuccessful. Nurse to notify .
[2022-10-24] VITALS (9 sets, daily range): BP systolic 117–131; BP diastolic 68–78; PULSE 72–91; RESP 14–20; TEMP 97.7–98.8; O2SAT 89–94
--- NOTE | 2022-10-24 | NUR ---
Nurse tried to notify MD regarding pt not receiving NS fluids d/t nopt having Iv access. Pt is drinking fluids. No rsponse from MD. Nurse will inform morning nurse of situation.
[2022-10-24] MEDS: normal saline 1000ml 1,000 ML IV SCH ×2 (00:23→10:23)
[2022-10-24] MEDS ORDERED: ondansetron 4mg rapidly disintigrating tab PO PRN (05:00)
[2022-10-24] MEDS: ipratropium/albuterol 3ml nebule NEB SCH ×2 (05:18→06:54)
[2022-10-24 06:11] LABS: MEAN CORPUSCULAR HEMOGLOBIN 29.7 PG (27.0-31.0); MEAN CORPUSCULAR HGB CONC 32.7 g/dL (33.0-36.5); MEAN CORPUSCULAR VOLUME 90.8 FL (78-98); MEAN PLATELET VOLUME 8.2 FL (7.4-10.4)
[2022-10-24 06:13] LABS: BASOPHILS % (AUTO) 0.2 % (0-1); EOSINOPHILS % (AUTO) 0.3 % (0-6); HEMATOCRIT 36.3 % (35.0-45.0); HEMOGLOBIN 11.9 g/dl (12.0-16.0); LYMPHOCYTES % (AUTO) 20.7 % (21-51); MONOCYTES % (AUTO) 6.8 % (2-12); NEUTROPHILS # (AUTO) 10.4 X10'3 (1.8-7.7); PLATELET COUNT 322 X10'3 (140-440); RED CELL DISTRIBUTION WIDTH 14.7 % (11.5-14.5); WHITE BLOOD COUNT 14.5 X10'3 (4.5-11.0)
[2022-10-24 06:27] LABS: ALANINE AMINOTRANSFERASE 49 U/L (12-78); ALBUMIN 2.8 G/DL (3.4-5.0); ALBUMIN/GLOBULIN RATIO 0.7 (1.1-1.5); ALKALINE PHOSPHATASE 100 IU/L (46-116); ANION GAP 6 (8-16); ASPARTATE AMINO TRANSFERASE 25 U/L (10-37); BILIRUBIN,TOTAL 0.2 MG/DL (0.1-1.0); BLOOD UREA NITROGEN 13 MG/DL (7-18); BUN/CREATININE RATIO 18.3 (10.0-20.0); CALCIUM 8.6 MG/DL (8.5-10.1); CHLORIDE 100 MMOL/L (99-107); CREATININE 0.71 MG/DL (0.40-0.90); GLUCOSE 113 MG/DL (70-104); MAGNESIUM 1.7 MG/DL (1.5-2.4); SODIUM 135 MMOL/L (135-145); TOTAL CARBON DIOXIDE 29.3 MMOL/L (24-32); eCRCL 72 ML/MIN; eGFR 86 ML/MIN
--- NOTE | 2022-10-24 06:36 | NUR ---
Problems reprioritized. Patient report given, questions answered & plan of care reviewed with Teresa GRIFFIN. Pt stable at shift change.
[2022-10-24] MEDS: docusate sod 100mg capsule PO SCH (08:00)
[2022-10-24] MEDS: K and/or MAG REPLACEMENT MC SCH (08:16)
[2022-10-24] MEDS: azithromycin/NS 500mg/250ml 250 ML IV SCH (08:19)
[2022-10-24] MEDS: aspirin 81mg tab.chew PO SCH (08:19)
[2022-10-24] MEDS: guaiFENesin ER 600mg tablet PO SCH (08:19)
[2022-10-24] MEDS: ipratropium/albuterol 3ml nebule NEB PRN (12:05)
[2022-10-24] MEDS ORDERED: ALBU18HF2 INH (13:10)
[2022-10-24] MEDS ORDERED: AZIT500T PO (13:10)
[2022-10-24] MEDS ORDERED: BENZ-38 PO (13:10)
[2022-10-24] MEDS ORDERED: ASPI-1265 PO (13:10)
--- NOTE | 2022-10-24 14:20 | NUR ---
Pt asking for discharge. MD notified and approved for discharge. Pt's PIV removed with cannula intact. Pt denies pain, Pt's discharge paperwork reviewed and questions answered. Pt's medications were called into pt's preferred pharmacy. Pt in NAD.
--- NOTE | 2022-10-25 15:02 | NUR ---
PATIENT CALLED AND SAID MEDICATIONS WERE NOT CALLED INTO PHARMACY . i CALLED IN HER RX TO [facility] PER HER REQUEST.
== END 2022-10-24 14:44 | disposition left against medical advice (07) | DRG 190 ==
LOC: ER 13:27 → ED HOLD 18:24 → PCU 3S 10-23 10:05
PROVIDERS: ADMIT Family Medicine; ATTEND Family Medicine
PROC: 4A02XM4 Measurement of Cardiac Total Activity, External Approach (ICD-10-PCS; principal; 2022-10-23)
PROC: 3E073KZ Introduction of Other Diagnostic Substance into Coronary Artery, Percutaneous Approach (ICD-10-PCS; 2022-10-23)
DX: R07.89 Other chest pain (principal); I21.A1 Myocardial infarction type 2; J96.01 Acute respiratory failure with hypoxia; I50.9 Heart failure, unspecified; E78.00 Pure hypercholesterolemia, unspecified; Z20.822 Contact with and (suspected) exposure to COVID-19; G43.909 Migraine, unspecified, not intractable, without status migrainosus; F17.210 Nicotine dependence, cigarettes, uncomplicated; F20.9 Schizophrenia, unspecified; Z53.21 Procedure and treatment not carried out due to patient leaving prior to being seen by health care provider; J44.1 Chronic obstructive pulmonary disease with (acute) exacerbation; F32.A Depression, unspecified; F41.9 Anxiety disorder, unspecified; G62.9 Polyneuropathy, unspecified; K21.9 Gastro-esophageal reflux disease without esophagitis; M19.90 Unspecified osteoarthritis, unspecified site; M54.9 Dorsalgia, unspecified; G89.29 Other chronic pain; E87.1 Hypo-osmolality and hyponatremia; Z79.82 Long term (current) use of aspirin; Z79.899 Other long term (current) drug therapy; Z86.73 Personal history of transient ischemic attack (TIA), and cerebral infarction without residual deficits; Z88.0 Allergy status to penicillin; Z88.8 Allergy status to other drugs, medicaments and biological substances; Z90.710 Acquired absence of both cervix and uterus; I25.2 Old myocardial infarction
CPT/HCPCS: 36415; 71045; 78452; 80053; 80061; 80305; 83605; 83735; 83880; 84145; 84443; 84484; 85025; 85610; 85730; 86140; 87040; 87070; 87811; 93005; 93017; 93306; 94640; 94664; 94668; 94760; 99285; A7015; A9500; G0378; J0456; J0696; J1650; J2785; J2930; J7030

== ENCOUNTER 2023-06-13 14:40 | Emergency (ER) | payer MEDICAID ==
[~2023-06-13] VITALS: Ht 160 cm; Wt 84.3 kg
[~2023-06-13 14:40] MED LIST changes: +ARIP15TA19 PO; -BUDE10.22 INH; -BUPR100T5 PO; -LACT1CAP26 PO; -LEVO-65 PO; -PANT40SU2 PO; +PANT40TA54 PO; -RISP4TAB49 PO
[2023-06-13 15:25] VITALS: TEMP 98
[2023-06-13 17:09] VITALS: BP 196/100; PULSE 84; RESP 16; O2SAT 97
== END 2023-06-13 17:11 | disposition home or self-care (01) ==
LOC: ER 14:41
DX: M79.604 Pain in right leg (principal); G43.909 Migraine, unspecified, not intractable, without status migrainosus; I50.9 Heart failure, unspecified; E78.00 Pure hypercholesterolemia, unspecified; J44.9 Chronic obstructive pulmonary disease, unspecified; K21.9 Gastro-esophageal reflux disease without esophagitis; M19.90 Unspecified osteoarthritis, unspecified site; Z88.0 Allergy status to penicillin; Z88.8 Allergy status to other drugs, medicaments and biological substances; Z79.899 Other long term (current) drug therapy
CPT/HCPCS: 73552; 73590; 93971; 99284

== ENCOUNTER 2023-07-24 05:14 | Emergency (ER) | payer MEDICAID ==
[~2023-07-24] VITALS: Ht 170.2 cm; Wt 8.7 kg
[2023-07-24] MEDS: normal saline 1000ml 1,000 ML IV ONE (05:56)
[2023-07-24 05:59] LABS: BILIRUBIN,URINE NEGATIVE (Neg); CLARITY,URINE CLEAR (Clear); COLOR,URINE YELLOW (Yellow); GLUCOSE, URINE NEGATIVE (Neg); KETONES,URINE NEGATIVE (Neg); LEUKOCYTE ESTERASE ,URINE NEGATIVE (Neg); NITRITES, URINE NEGATIVE (Neg); OCCULT BLOOD,URINE NEGATIVE (Neg); PH,URINE 6.5 (4.8-8.0); PROTEIN,URINE NEGATIVE (Neg); UROBILINOGEN,URINE 0.2 E.U/dL (0.2-1.0)
[2023-07-24] MEDS: ondansetron/PF 4mg/2ml inj IV ONE ×2 (05:59→09:11)
[2023-07-24] MEDS: famotidine/PF 10 mg/ml inj IV ONE (05:59)
[2023-07-24 06:05] LABS: BASOPHILS % (AUTO) 0.7 % (0-1); EOSINOPHILS # (AUTO) 0.2 X10'3 (0-0.9); EOSINOPHILS % (AUTO) 3.2 % (0-6); HEMATOCRIT 42.3 % (35.0-45.0); LYMPHOCYTES # (AUTO) 2.6 X10'3 (1.1-4.8); LYMPHOCYTES % (AUTO) 37.6 % (21-51); MEAN CORPUSCULAR HEMOGLOBIN 29.3 PG (27.0-31.0); MEAN CORPUSCULAR VOLUME 88.9 FL (78-98); MEAN PLATELET VOLUME 8.2 FL (7.4-10.4); MONOCYTES # (AUTO) 0.5 X10'3 (0-0.9); MONOCYTES % (AUTO) 7.5 % (2-12); NEUTROPHILS # (AUTO) 3.5 X10'3 (1.8-7.7); PLATELET COUNT 259 X10'3 (140-440); RED BLOOD COUNT 4.76 X10'6 (4.20-5.60); RED CELL DISTRIBUTION WIDTH 14.4 % (11.5-14.5); WHITE BLOOD COUNT 6.9 X10'3 (4.5-11.0)
[2023-07-24 06:09] LABS: UA COLLECTION TYPE CLN CATCH MIDSTREAM
[2023-07-24 06:16] VITALS: TEMP 97.4
[2023-07-24 06:17] LABS: ALANINE AMINOTRANSFERASE 46 U/L (12-78); ALBUMIN 3.6 G/DL (3.4-5.0); ALBUMIN/GLOBULIN RATIO 0.9 (1.1-1.5); ALKALINE PHOSPHATASE 147 IU/L (46-116); ANION GAP 8 (8-16); ASPARTATE AMINO TRANSFERASE 43 U/L (10-37); BILIRUBIN,TOTAL 0.2 MG/DL (0.1-1.0); BLOOD UREA NITROGEN 9 MG/DL (7-18); BUN/CREATININE RATIO 15.3 (10.0-20.0); CALCIUM 9.2 MG/DL (8.5-10.1); CHLORIDE 98 MMOL/L (99-107); CREATININE 0.59 MG/DL (0.40-0.90); GLUCOSE 90 MG/DL (70-104); SODIUM 133 MMOL/L (135-145); TOTAL PROTEIN 7.7 G/DL (6.4-8.2); eCRCL 15 ML/MIN; eGFR > 90 ML/MIN
[2023-07-24 06:19] LABS: LIPASE 35 U/L (16-77)
[2023-07-24 08:10] LABS: URINE AMPHETAMINE SCREEN NEGATIVE (Neg); URINE BARBITUATE SCREEN NEGATIVE (Neg); URINE BENZODIAZEPINES SCREEN NEGATIVE (Neg); URINE CANNABINOID SCREEN NEGATIVE (Neg); URINE COCAINE SCREEN NEGATIVE (Neg); URINE METHADONE SCREEN NEGATIVE (Neg); URINE PHENCYCLIDINE SCREEN NEGATIVE (Neg)
[2023-07-24] MEDS ORDERED: ONDA4TAB12 PO (08:32)
[2023-07-24] MEDS: ipratropium/albuterol 3ml nebule NEB ONE (08:51)
[2023-07-24 08:52] VITALS: PULSE 80; RESP 18; O2SAT 95
[2023-07-24 08:58] VITALS: PULSE 94; RESP 18; O2SAT 96
[2023-07-24 10:02] VITALS: BP 157/72; PULSE 74; RESP 17; O2SAT 96
== END 2023-07-24 10:06 | disposition home or self-care (01) ==
LOC: ER 05:15
DX: K29.00 Acute gastritis without bleeding (principal); R10.30 Lower abdominal pain, unspecified; Z88.0 Allergy status to penicillin; Z88.8 Allergy status to other drugs, medicaments and biological substances; Z86.73 Personal history of transient ischemic attack (TIA), and cerebral infarction without residual deficits; G43.909 Migraine, unspecified, not intractable, without status migrainosus; I50.9 Heart failure, unspecified; E78.00 Pure hypercholesterolemia, unspecified; I25.2 Old myocardial infarction; J45.909 Unspecified asthma, uncomplicated; J44.9 Chronic obstructive pulmonary disease, unspecified; K21.9 Gastro-esophageal reflux disease without esophagitis; M19.90 Unspecified osteoarthritis, unspecified site; G89.29 Other chronic pain; M54.9 Dorsalgia, unspecified; F32.A Depression, unspecified; F41.9 Anxiety disorder, unspecified; F20.9 Schizophrenia, unspecified; Z79.899 Other long term (current) drug therapy
CPT/HCPCS: 36415; 71045; 74176; 80053; 80305; 81003; 83690; 84145; 84484; 85025; 94640; 96361; 96374; 96375; 96376; 99285; J2405; J3490; J7030; 94760

== ENCOUNTER 2023-09-25 19:39 | Emergency (ER) | payer MEDICAID ==
[~2023-09-25] VITALS: Ht 157.5 cm; Wt 90.9 kg
[~2023-09-25 19:39] MED LIST changes: -ARIP15TA19 PO; +ARIP15TA68 PO; +ARIP400S3 IM; -GABA600T13 PO
[2023-09-25 19:43] VITALS: BP 127/78; PULSE 88; RESP 16; O2SAT 96
[2023-09-25 20:25] VITALS: TEMP 98.5
== END 2023-09-25 20:26 | disposition home or self-care (01) ==
LOC: ER 19:40
DX: M25.572 Pain in left ankle and joints of left foot (principal); G45.9 Transient cerebral ischemic attack, unspecified; I50.9 Heart failure, unspecified; E78.00 Pure hypercholesterolemia, unspecified; J44.9 Chronic obstructive pulmonary disease, unspecified; K21.9 Gastro-esophageal reflux disease without esophagitis; M19.90 Unspecified osteoarthritis, unspecified site; G89.29 Other chronic pain; M54.9 Dorsalgia, unspecified; F41.9 Anxiety disorder, unspecified; F32.A Depression, unspecified; Z88.0 Allergy status to penicillin; Z88.6 Allergy status to analgesic agent; Z88.8 Allergy status to other drugs, medicaments and biological substances; Z79.899 Other long term (current) drug therapy
CPT/HCPCS: 73610; 99283; A6449

== ENCOUNTER 2023-12-28 11:20 | Outpatient (CLI) | payer MEDICAID | END 2023-12-28 23:59 | disposition home or self-care (01) | LOC: RAD 11:20 | PROVIDERS: ATTEND Nurse Practitioner Psychiatric/Mental Health | DX: R94.31 Abnormal electrocardiogram [ECG] [EKG] (principal); Z79.899 Other long term (current) drug therapy | CPT/HCPCS: 93005 ==

== ENCOUNTER 2024-09-27 12:14 | Inpatient (IN) | payer MEDICAID ==
[~2024-09-27] VITALS: Ht 157.5 cm; Wt 85.2 kg
--- NOTE | 2024-09-27 12:30 | ELECTROCARDIOGRAPH REPORT ---
[facility] Test Date: 2024-09-27 Test Time: 12:28:32 Pat Name: DARSHAN ACOSTA Department: EMERGENCY ROOM Room: ED 6 Gender: F Materials Management Supervisor: HARSHAD : [id number] Requested By: NITO STOVER Order Number: [id number] Reading MD: Dr. Jefferson Apple Measurements Intervals [place] Rate: 88 P: 39 NJ: 143 QRS: 42 QRSD: 98 T: 92 QT: 359 QTc: 435 Interpretive Statements Sinus rhythm Low voltage, precordial leads Consider inferior infarct Abnrm T, consider ischemia, anterolateral lds Electronically Signed On 09-27-2024 18:25:[address] Jefferson Apple Please click the below link to view image of tracing.
[2024-09-27 13:26] LABS: MEAN PLATELET VOLUME 8.0 FL (7.4-10.4); RED CELL DISTRIBUTION WIDTH 15.1 % (11.5-14.5)
--- NOTE | 2024-09-27 13:27 | RADIOLOGY REPORT ---
CHEST RADIOGRAPH Indication: CP Technique: Single frontal view of the chest was obtained COMPARISON: DI CHEST,SINGLE VIEW on DOS: 07/24/23, DI CHEST,SINGLE VIEW on DOS: 10/22/22, CHEST,SINGLE VIEW on DOS: 07/23/20, CHEST,SINGLE VIEW on DOS: 05/06/19, CHEST,SINGLE VIEW on DOS: 04/27/19 FINDINGS: Lines and Tubes: None Lungs: Clear Pleura: No effusion. No pneumothorax. Cardiomediastinal contours: Unremarkable Bones: Unremarkable IMPRESSION: No acute disease.
[2024-09-27 13:49] LABS: CREATININE 0.80 MG/DL (0.40-0.90); PRO BRAIN NATRIURETIC PEPTIDE 399 PG/ML (0-125); TOTAL CARBON DIOXIDE 31.2 MMOL/L (24-32); eCRCL 62 ML/MIN; eGFR 74 ML/MIN
[2024-09-27 14:14] LABS: ETHANOL < 10 MG/DL (<10)
--- NOTE | 2024-09-27 15:45 | RADIOLOGY REPORT ---
CTA Chest with intravenous contrast INDICATION: HYPOXIA COMPARISON: DI CHEST,SINGLE VIEW on DOS: 09/27/24 TECHNIQUE: Multidetector spiral CTA of the chest was performed of the chest with 100 cc of omnipaque 350 intravenous contrast. PULMONARY ANGIOGRAPHY PROTOCOL was utilized using a bolus-tracking techniqu e centered on the main pulmonary artery. Coronal and sagittal multiplanar and MIP reformats were perf ormed. Radiation Dose : 1. Chest: CTDI volume is 24.9 mGy. Dose-length product is 969.2 mGy*cm The dose indicators for CT are the volume Computed Tomography (CT) Dose Index (CTDIvol) and the Dose Length Product (DLP), and are measured in units of mGy and mGy-cm, respectively. These indicators are not patient dose, but values generated from the CT scanner acquisition factors. The report includes radiation exposure data for exposures received during this examination. FINDINGS: Pulmonary artery: No central, lobar or proximal segmental pulmonary embolus. Lower neck: Unremarkable thyroid. Lungs: No suspicious pulmonary nodule. No focal airspace disease. Central airways: Patent. Pleura: No pneumothorax. No pleural effusions. Heart/Vascular Structures: The heart is slightly enlarged. No pericardial effusion. Thoracic aorta is normal in caliber. No aneurysm or dissection. Lymph Nodes: No mediastinal or hilar lymphadenopathy. Esophagus:Grossly unremarkable. Musculoskeletal: Unremarkable. Body wall: Unremarkable. Upper abdomen: Unremarkable. IMPRESSION: 1. No evidence of pulmonary embolism. 2. Cardiomegaly. HS:Y
[2024-09-27 15:55] LABS: LEUKOCYTE ESTERASE ,URINE NEGATIVE (Neg); NITRITES, URINE NEGATIVE (Neg); OCCULT BLOOD,URINE NEGATIVE (Neg)
--- NOTE | 2024-09-27 15:55 | RADIOLOGY REPORT ---
CLINICAL INDICATION: Worsening chronic back pain TECHNIQUE: CT of the lumbar spine was performed without intravenous contrast. Sagittal and coronal re formatted images are provided. All CT scans at this medical facility are performed using dose modula tion techniques as appropriate to a performed exam including the following: Automated exposure contro l was utilized; adjustment of the MA and/or KV according to patient size; and use of iterative recons truction technique. COMPARISON: None CT Dose: CTDI volume is 34.8 mGy. Dose-length product is 1025.7 mGy*cm FINDINGS: The alignment and curvature of the lumbar spine are preserved. The vertebral bodies are normal in hei ght. The intervertebral disc spaces are maintained. There is no evidence of spinal canal or neural fo raminal stenosis. The prevertebral soft tissues are unremarkable. Paraspinal muscles are also within normal limits. IMPRESSION: 1. No fracture or subluxation in the lumbar spine. HS:Y
[2024-09-27 15:56] LABS: UA COLLECTION TYPE URINAL
[2024-09-27 16:03] LABS: URINE AMPHETAMINE SCREEN NEGATIVE (Neg); URINE BARBITUATE SCREEN NEGATIVE (Neg); URINE BENZODIAZEPINES SCREEN NEGATIVE (Neg); URINE CANNABINOID SCREEN NEGATIVE (Neg); URINE COCAINE SCREEN NEGATIVE (Neg); URINE METHADONE SCREEN NEGATIVE (Neg); URINE OPIATE SCREEN NEGATIVE (Neg); URINE PHENCYCLIDINE SCREEN NEGATIVE (Neg)
--- NOTE | 2024-09-27 16:49 | Physician Documentation ---
History of Present Illness ~ Chief Complaint: Back Pain Stated Complaint: BACK AND LEG PAIN Time Seen by MD: 12:40 Primary Medical Doctor: jose rafael WOOD This is a 58-year-old female with a known chronic history of back pain who presents for evaluation of right-sided low back pain that has been present for the last four days. No obvious trigger provocation. The particular palliating factors. Did not attempt to treat it. Denies any red flags of back pain such as urinary incontinence, fecal incontinence, urinary retention, saddle paresthesias. Denies IV drug use. Denies blood thinners. She states that she recently has been admitted to this facility, was intubated, due to lithium overdose. During intubation evidently she suffered aspiration and was diagnosed with a aspiration pneumonia. She was prescribed Augmentin, how ever the closed door pharmacy and [facility] has not delivered that yet. She complains of shortness a breath. Denies any chest pain. Normally not wearing the oxygen. Was noted to be hypoxic at 88% in the waiting room. Smokes, denies use of alcohol or drugs. Record review indicates history of CVA, TIA, COPD. Medication Reconciliation Allergies: Coded Allergies: Penicillins (Unverified Allergy, Intermediate, 09/27/24) divalproex sodium (Verified Allergy, Mild, 09/27/24) simvastatin (Verified Adverse Reaction, Intermediate, BLURRED VISION AND SLEEPY., 09/27/24) Scheduled Albuterol Sulfate (Ventolin Hfa), 2 PUFFS INH Q4HPRN Aripiprazole (Aripiprazole), 1 TAB PO BID, (Reported) Aripiprazole (Abilify Maintena), 400 MG IM once every 21 days, (Reported) Pantoprazole Sodium (Pantoprazole Sodium), 1 TAB PO BID, (Reported) Past Medical History Past Medical History: CVA/TIA/Stroke, Migraine, Peripheral Neuropathy, Congestive Heart Failure, High Cholesterol, Myocardial Infarction, Asthma, COPD, Pneumonia, Previously Intubated, GERD, Arthritis, Chronic Back Pain, Osteopenia, Anxiety, Depression, Schizophrenia Past Surgical History: no surgical history Patient History: Patient reports no known family medical history. Smoking Status: Current every day smoker Alcohol Use: None Drug Use: none Lives with: Family Lives In: Home Occupation: disabled Review of Systems ROS 10 point review of systems was performed and unless noted above in HPI is negative for acute process/complaint. Physical Exam Physical Exam Vital Signs: Heart Rate: 94, Respiratory Rate: 17, BP: 96/57, Pulse Oximetry: 94, Weight: 85.200 Oxygen Flow Rate: 2.0 Physical Exam GENERAL: Awake, alert, oriented, GCS 15, no apparent distress, non-toxic appearing, answers questions, follows commands appropriately. Examined in bed 6. HEENT: Atraumatic, normocephalic, pupils equal, extraocular muscles intact, sclerae anicteric, mucus membranes moist, oropharynx is clear, no stridor. NECK: supple, full active range of motion, trachea midline, no thyromegaly, no lymphadenopathy, no JVD. CARDIOVASCULAR: regular rate/rhythm, no murmurs/gallops/rubs, Pulses are 2+ in all extremities and symmetric. Capillary refill less than 2 seconds. PULMONARY: Nonlabored on nasal cannula, good air movement ,no respiratory distress, speaking in full sentences, coarse breath sounds bilaterally, no wheezing, no ronchi, no rales, no accessory muscle use. GASTROINTESTINAL: Soft, non-tender, non-distended, normal active bowel sounds, no organomegaly, no pulsatile masses, no CVA tenderness. NEUROLOGIC: Lucid with normal mental status. Normal facial symmetry. Moves all extremities symmetrically and with purpose. No truncal ataxia. Speech is fluid without evidence of dysarthria or aphasia, no focal deficits appreciated. MUSCULOSKELETAL: There is full range of motion of all extremities. There is no joint pain or joint swelling or joint erythema. There is no muscle pain or tenderness or swelling. EXTREMITIES: warm, well-perfused, no cyanosis, no clubbing, no edema, no acute deformities. Skin: warm, dry, no rashes or lesions, no jaundice, no petechiae orpurpura. No ecchymosis. PSYCHIATRIC: Normal affect, normal insight, normal concentration. Focused exam: [] Progress Results/Orders Results/Orders Orders - EFREN STOVER DO Chest,Single View (09/27/24 12:25) Monitor (09/27/24 12:25) Saline Lock (09/27/24 12:25) Oxygen (09/27/24 12:25) Ct Lumbar Spine (09/27/24 13:49) Cta Chest Pe (09/27/24 ) Completed Orders - EFREN STOVER DO Chest,Single View (09/27/24 12:25) Cbc/Diff (09/27/24 12:25) BMP (09/27/24 12:25) PBNP (09/27/24 12:25) Electrocardiogram (09/27/24 12:25) Hs Troponin I W Calculations (09/27/24 12:25) Hs Troponin I W Calculations (09/27/24 14:25) Ct Lumbar Spine (09/27/24 13:49) [place] Level (09/27/24 13:49) Drug Screen, Urine (09/27/24 13:49) Urinalysis, Cult If Indicated (09/27/24 13:49) Ethanol (09/27/24 13:18) Cta Chest Pe (09/27/24 ) Iohexol 350mg/Ml 100ml (Omnipaque 350mg/ (09/27/24 14:57) Vital Signs 09/27/24 09/27/24 12:20 12:33 Pulse 96 94 Resp 25 17 B/P (MAP) 120/68 96/57 (70) Pulse Ox 90 94 O2 Flow Rate 0 2.0 Laboratory Tests Test 09/27/24 13:18 09/27/24 14:19 09/27/24 15:25 White Blood Count 9.4 Red Blood Count 4.20 Hemoglobin 12.6 Hematocrit 39.0 Mean Corpuscular Volume 92.7 Mean Corpuscular Hemoglobin 29.9 Mean Corpuscular Hemoglobin Concent 32.3 L Red Cell Distribution Width 15.1 H Platelet Count 259 Mean Platelet Volume 8.0 Neutrophils (%) (Auto) 61.2 Lymphocytes (%) (Auto) 27.4 Monocytes (%) (Auto) 6.5 Eosinophils (%) (Auto) 4.5 Basophils (%) (Auto) 0.4 Neutrophils # (Auto) 5.7 Lymphocytes # (Auto) 2.6 Monocytes # (Auto) 0.6 Eosinophils # (Auto) 0.4 Basophils # (Auto) 0.0 CBC Comment Sodium Level 133 L Potassium Level 4.4 Chloride Level 100 Carbon Dioxide Level 31.2 Anion Gap 2 L Blood Urea Nitrogen 12 Creatinine 0.80 Estimated GFR/1.73 m2 74 BUN/Creatinine Ratio 15.0 Glucose Level 81 Calcium Level 8.7 Troponin I High Sensitivity 24 30 Pro-B-Type Natriuretic Peptide 399 H Albumin 3.1 L Chemistry Comments Ethyl Alcohol Level < 10 Troponin I High Sens Percent Delta 25 Troponin I Hi Sens Absolute Change 6 [place] Level 1.3 H Urine Specimen Description Urinal Urine Color Yellow Urine Clarity Clear Urine pH 6.0 Urine Specific [place] <=1.005 Urine Protein Negative Urine Glucose (UA) Negative Urine Ketones Negative Urine Occult Blood Negative Urine Nitrite Negative Urine Bilirubin Negative Urine Urobilinogen 0.2 Urine Leukocyte Esterase Negative Urine Culture Indicated Not ind Volume Urine Centrifuged 10 ml Urine Comment Urine Opiates Screen Negative Urine Methadone Screen Negative Urine Fentanyl Screen Negative Urine Barbiturates Screen Negative Urine Phencyclidine Screen Negative Urine Amphetamines Screen Negative Urine Benzodiazepines Screen Negative Urine Cocaine Screen Negative Urine Cannabinoids Screen Negative Drug Screen Comment Medical Decision Making Findings Facility Status: [facility], [facility] process The plan was discussed with the patient, who demonstrates clear understanding of the plan and is in agreement with the plan unless otherwise noted in the chart. All questions have been answered, all concerns were addressed unless otherwise documented. I was available throughout their ED stay for frequent reassessment and questions. Differential Diagnoses (considered and possible or likely): [Differential for the back pain includes but not limited to muscle spasm, radiculopathy, less likely lumbar spine fracture or subluxation, clinically not consistent with a cauda equina or conus medullaris. Differential for shortness a breath and newly diagnosed hypoxia includes but not limited to aspiration pneumonia, community-acquired pneumonia, CHF, ACS, PE] ??Differential Diagnoses (considered and unlikely, not requiring evaluation currently): [See above] MDM Data Please see [facility] for the following: Independent Historians and external Records Review. Historian: [Patient] Independent Historians: ?[Record review] Medication Management: [Reviewed medication list] Social History and determinants: [Reviewed] Please see the body of the note for the following: Any independent interpretations of ECG, imaging studies. All vitals signs/haemodynamics, ordered tests were independently reviewed and interpreted by myself. Nursing triage complaint and vitals reviewed, additional nursing notes were reviewed as available and I agree unless otherwise noted or documented in contradiction in the chart Vital Signs: Independently reviewed Labs: Independently interpreted Imaging: Independently interpreted Old Medical Records: Independently reviewed, see HPI for relevant summary and information Pulse Oximetry: [88% on room air] interpreted as [hypoxia] by me [Purchasing Officer: [Regular Rate, Regular rhythm, no ectopy, NSR] reviewed and interpreted by me] Additionally notably showing: [Hemodynamics reviewed. The patient is tachypne ic, hypoxic on presentation. This improved. No evidence of hypotension. She does require supplemental oxygen at 2 L. Laboratory studies are unremarkable. CBC is normal. Chemistry is normal. BNP is mildly elevated at 399. Troponin is normal. Urine drug screen is negative. [place] is detectable in therapeutic range. UA nondiagnostic for UTI. Advanced imaging of the chest was obtained showing cardiomegaly but no evidence of acute PE. No focal airspace disease. Chest x-ray also shows no acute disease. CT of lumbar spine shows no fracture or subluxation.] Tests considered but not ordered include: [Echocardiogram can be done on an inpatient basis] Social Determinants of Health Impact: Patient was evaluated in [facility], [facility] [place] to healthcare due to below par ratio of patient to medical providers. [] Comorbid Conditions Impacting Present Evaluation and Care/Treatment: [Multiple, see list/past medical history] Management Discussions with other Healthcare Providers: [Hospitalist regarding admission] Treatment and Disposition Medication Management (Given or considered): []. See EMR for details Consideration for Hospitalization/Escalation/Deescalation of Care: Admission for observation has been considered, and appears to be necessary for management of patient's hypoxia. Hypoxia is most likely secondary COPD exacerbation, less likely CHF exacerbation, although combined process can not be excluded. ?ED Course:?[No clinical improvement.] ?Shared decision making:?[] Code status:?FULL Please see the full Electronic Medical Record for full details of nursing docume ntation, medications list, other records of complete past medical history and conditions, vital signs, laboratory studies, and any radiologic study interpretations by radiologists. Portions of this note were completed using [employer] dictation software and as a result there may exist minor errors in spelling. I have reviewed elements of past family and social history and agree as included in note. Departure Disposition: 09 ADMITTED INPATIENT Impression: Primary Impression: Acute exacerbation of chronic obstructive pulmonary disease Additional Impressions: Acute hypoxic respiratory failure New onset of congestive heart failure Condition: Stable Referrals: NO PRIMARY CARE PROVIDER (PCP) Signature Scribe Signature: No scribe Attestation: This note accurately reflects clinical decisions, work performed by myself, Efren Stover, EFREN MEDRANO DO Sep 27, 2024 16:49
[2024-09-27] MEDS: albuterol 2.5 MG/3 ML nebule NEB ONE (16:55)
[2024-09-27] MEDS: orphenadrine citrate 60mg/2ml inj. IV ONE (17:47)
[2024-09-27] MEDS: magnesium sulf-water 2g/50mL 50 ML IV ONE (17:47)
--- NOTE | 2024-09-27 17:54 | HISTORY AND PHYSICAL ---
History & Physical Providers to CC Chief complaint, shortness of breath cough back pain ~ History of Present Illness Reason for Admit\Complaint: As above History of Present Illness This is a 58-year-old female with a known chronic history of COPD, chronic tobacco abuse including currently, bipolar disorder, history of substance abuse, hypoalbuminemia, CHF, cardiomegaly, migraine headaches, history of CVA TIA, pre morbid obesity, chronic pain syndrome, history of SD, peripheral neuropathy, presented today to emergency department chief complaint shortness of breath associated with cough and, low-back pain; in addition this is the patient who complaint back pain who presents for evaluation of right-sided low back pain that has been present for the last four days. No obvious trigger provocation. The particular palliating factors. Did not attempt to treat it. Denies any red flags of back pain such as urinary incontinence, fecal incontinence, urinary retention, saddle paresthesias. Denies IV drug use. Denies blood thinners. She states that she recently has been admitted to this facility, was intubated, due to lithium overdose. During intubation evidently she suffered aspiration and was diagnosed with a aspiration pneumonia. She was prescribed Augmentin, how ever the closed door pharmacy and [facility] has not delivered that yet. She complains of shortness a breath. Denies any chest pain. Normally not wearing the oxygen. Was noted to be hypoxic at 88% in the waiting room. Smokes, denies use of alcohol or drugs. Record review indicates history of CVA, TIA, COPD. Emergency department she was evaluated by physician was diagnosed with COPD exacerbation, and decision was made to admit patient on further evaluation treatment, patient started on IV antibiotics and steroids SVN Shayla. No additional complaint or concern. Allergies: Coded Allergies: Penicillins (Unverified Allergy, Intermediate, 09/27/24) divalproex sodium (Verified Allergy, Mild, 09/27/24) simvastatin (Verified Adverse Reaction, Intermediate, BLURRED VISION AND SLEEPY., 09/27/24) Active prescriptions I reviewed reconciled Home Medications Home Medications Active Ventolin Hfa (Albuterol Sulfate) 90 Mcg Hfa.aer.ad 2 Puffs INH Q4HPRN Reported Abilify Maintena (Aripiprazole) 400 Mg Suser.syr 400 Mg IM ONCE EVERY 21 DAYS Pantoprazole Sodium 40 Mg Tablet.dr 1 Tab PO BID Aripiprazole 15 Mg Tablet 1 Tab PO BID Past Medical History Past Medical History As in HPI Past Surgical History Surgical History Comment As in HPI Family History Family History: Family history was reviewed; no changes noted. Past Social History Social History Comment Deny illicit drug abuse alcohol use live with the family good social support, positive for chronic tobacco abuse including currently Health Maintenance Health Maintenance Noncontributory ROS ROS Constitutional : no fever , no chills, or weakness. No diaphoresis. Allergic/Immunologic, no lymphadenopathy, no hives, no skin eruptions. Eyes, no recent visual changes, no eye pain, no photophobia. Ears, nose, mouth, throat, no sore throat, no nosebleed, no ear pain. Cardiovascular, no palpitations, skipped beats, chest pain, no peripheral edema, Respiratory, positive for dyspnea, orthopnea, cough, no hemoptysis, chest wall pain. Gastrointestinal, no abdominal pain, nausea, vomiting, constipation or diarrhea. : no dysuria, hematuria, pelvic pain, urethral d/c. Endocrine, no polyuria, polydipsia, recent unintentional weight gain or loss. Hematologic/Lymphatic, no petechiae, no enlarged lymph nodes, no bone pain. Integumentary, no rash, no skin lesions, Musculoskeletal, no muscle aches, or pain, no muscle cramps, no recent change in gait Neurological, no dizziness, no headache, no syncope, no paresthesia. Psychiatric, no delusions, visual hallucinations, or hearing hallucinations. ROS - in rest is as in HPI. Exam Vitals: Vital Signs Date Time Temp Pulse Resp B/P (MAP) Pulse Ox O2 Delivery O2 Flow Rate FiO2 09/27/24 16:15 77 16 116/68 (84) 96 09/27/24 12:33 2.0 Vital signs, stable ,afebrile. Pulse Oximetry reflects adequate oxygenation on 2 L oxygen nasal cannula. BMI is 34, weight 85 kg General: well developed, well nourished. Awake , alert, and oriented x4, resting comfortably in the bed, in no acute distress . Skin: Warm, dry, no pallor, no rash or petechiae. HEENT: Atraumatic, normocephalic, EOMI, anicteric sclera B; pink conjunctiva; PERRLA, normal oropharynx, moist oral and nasal mucosa. Tympanic membrane , nose , throat clear. Neck: Trachea midline. Supple, full range of motion, no JVD, bruit , hepatojugular reflex , lymphadenopathy or masses, or other lesions Cardiac: Regular rhythm, regular rate no murmurs, rubs, or gallops. Normal S1 and S2, no S3 noticed. PMI is normal. Respiratory: Equal breath sounds bilaterally, no tachypnea; lungs clear to auscultation bilaterally, no wheezing ,rub or rales, or crackles. Chest wall is symmetric and without deformity. No signs of trauma. Chest wall is nontender. No signs of respiratory distress. Resonance is normal upon percussion bilaterally. Gastrointestinal: Abdomen symmetric, non-distended, soft, non-tender, normal bowel sounds x4 quadrant, normoactive, no hepatosplenomegaly , no masses , no bruit, no flank pain bilaterally. No voluntary guarding, rebound, or rigidity. No tenderness to percussion. No pulsatile masses. Equal femoral pulses. No Obando's sign or McBurney point tenderness. Back; no CVA tenderness bilaterally, no deformities. Neck and back are without deformity as well. No tenderness noted on palpation of the spinous processes. Spinous processes are midline. Cervical, thoracic, and lumbar paraspinal muscles are not tender and are without spasm. : Deferred by patient Musculoskeletal: Extremities, normal range of motion, non-tender, muscle strength 5/5 x 4. Negative Homans signs bilaterally on lower extremity. Distal pulses full symmetrical, no clubbing, cyanosis , edema. Neurological: Speech is clear, alert, and oriented x 4. No motor or sensory deficit, deep tendon reflexes normal, cerebellar intact. Cranial nerves II-XII intact. Psych: Alert and or appropriate, normal affect. Vascular: Good distal pulses, which are equal x4; capillary refill less than 2 seconds. Lymphatic, no lymphadenopathy. Diagnostic Data Last Recorded Lab Results: 09/27/24 1318 09/27/24 1318 Advance Care Planning Advanced Care plannin - 30 Minutes Additional Plan Assessment COPD exacerbation Acute hypoxic respiratory failure Hyponatremia Chronic tobacco abuse including currently Over therapeutic lithium level Chronic pain syndrome in exacerbation Chronic low-back pain in exacerbation Hypoalbuminemia CHF preserved ejection fraction in exacerbation Additional comorbidities, pre morbid obesity, peripheral neuropathy, bipolar disorder, history of substance abuse disorder, cardiomegaly, migraine headaches, history of CVA TIA, history of vaginal cancer Plan IV fluids, steroids antibiotics Correct electrolytes SVN DuoNeb, incentive spirometry PT evaluation and treatment Adjust lithium dose Consulted for 5 minutes. To stop Using tobacco started to nicotine patch Reconciled home medications DVT gastropathy prophylaxis addressed Additional lab work pending Sepsis Screening Reassessment Date: Sep 27, 2024 Date of Service: Sep 27, 2024 Billing Provider: MIKAYLA WILCOX MD Common Visit Codes: 10032-[id number] INP/OBS CARE (HIGH) Secondary Visit Codes: 62211-[id number] CHNG SMOKING 3-10M, [id number] CARE PLAN 30 MINUTES MIKAYLA WILCOX MD Sep 27, 2024 17:54
[2024-09-27] MEDS ORDERED: potassium Cl 20 mEq SR tablet PO PRN ×2 (17:55)
[2024-09-27] MEDS ORDERED: bisacodyl 10mg suppository rectal RC PRN (17:55)
[2024-09-27] MEDS ORDERED: magnesium sulf-water 2g/50mL 50 ML IV PRN (17:55)
[2024-09-27] MEDS ORDERED: ondansetron/PF 4mg/2ml inj IV PRN (17:55)
[2024-09-27] MEDS ORDERED: potassium Cl 40MEQ/1/2NS 520ml 520 ML IV PRN (17:55)
[2024-09-27] MEDS ORDERED: ondansetron 4mg rapidly disintigrating tab PO PRN (17:55)
[2024-09-27] MEDS ORDERED: mag hydrox/Alum hydrox/simeth 30ml oral suspension PO PRN (17:55)
[2024-09-27] MEDS ORDERED: acetaminophen 650mg rectal suppository RC PRN (17:55)
[2024-09-27] MEDS ORDERED: magnesium Cl slow-release 64mg tablet PO PRN (17:55)
[2024-09-27] MEDS ORDERED: magnesium sulf-water 4G/100mL 100 ML IV PRN (17:55)
[2024-09-27 18:28] LABS: PHOSPHORUS 5.2 MG/DL (2.3-4.5)
[2024-09-27] MEDS: normal saline 1000ml 1,000 ML IV SCH (18:52)
[2024-09-27] MEDS: levoFLOXACIN-Levaquin 750MG/D5 150 ML IV SCH (18:52)
[2024-09-27 19:20] LABS: LEUKOCYTE ESTERASE ,URINE NEGATIVE (Neg); NITRITES, URINE NEGATIVE (Neg); OCCULT BLOOD,URINE NEGATIVE (Neg)
[2024-09-27 19:27] LABS: UA COLLECTION TYPE CLN CATCH MIDSTREAM
[2024-09-27] MEDS: docusate sod 100mg capsule PO SCH (20:00)
[2024-09-27] MEDS: K and/or MAG REPLACEMENT MC SCH (20:00)
--- NOTE | 2024-09-27 20:18 | RADIOLOGY REPORT ---
INDICATION: Bilateral hip pain COMPARISON: CT CT LUMBAR SPINE on DOS: 09/27/24, DI ANKLE, COMPLETE(3VW MIN) on DOS: 09/25/23, DI FEMUR 2 VIEWS on DOS: 06/13/23, DI TIB/FIB 2 VWS on DOS: 06/13/23, TIB/FIB 2 VWS on DOS: 06/30/20 TECHNIQUE: CT of the pelvis was performed without contrast. Volume transverse images were obtained an d reconstructed in multiple planes using bone and soft tissue algorithms. Radiation Dose Information: CT Dose: CTDI volume is 34.5 mGy. Dose-length product is 999.2 mGy*cm FINDINGS: No acute fracture or dislocation. Osseous mineralization is within normal limits. Mild degenerative c hanges of the sacroiliac joints. No evident joint effusion. No acute finding of the pelvic contents. Absent uterus colonic diverticulosis. Vascular calcificatio ns. Muscles and soft tissues are unremarkable. IMPRESSION: 1. No acute osseous finding of the pelvis. 2. All CT scans at this medical facility are performed using dose modulation techniques as appropriat e to a performed exam including the following: Automated exposure control was utilized; adjustment of the MA and/or KV according to patient size; and use of iterative reconstruction technique.
[2024-09-27 20:47] VITALS: PULSE 56; RESP 16; O2SAT 99
[2024-09-27 21:15] LABS: APTT 25 SECONDS (22-32); INR 0.9 INR
[2024-09-27 21:25] VITALS: BP 136/84; PULSE 64; RESP 16; TEMP 97.1; O2SAT 94
[2024-09-27] MEDS: ipratropium/albuterol 3ml nebule NEB PRN (22:38)
[2024-09-27 22:39] VITALS: PULSE 62; RESP 18; O2SAT 97
[2024-09-27 22:45] VITALS: PULSE 64; RESP 16
[2024-09-27] MEDS: heparin, porcine 5000 units/ml vial SQ SCH (23:21)
[2024-09-28] VITALS (12 sets, daily range): BP systolic 130–160; BP diastolic 66–80; PULSE 64–86; RESP 15–22; TEMP 96.8–98.1; O2SAT 92–97
[2024-09-28] MEDS: HYDROcodone/acetaminophen 5mg/325mg tablet PO PRN (05:38)
[2024-09-28 05:51] LABS: MEAN PLATELET VOLUME 8.4 FL (7.4-10.4); RED CELL DISTRIBUTION WIDTH 14.8 % (11.5-14.5)
[2024-09-28 06:33] LABS: CHOL/HDL RATIO 2.9 (0.00-4.99); CREATININE 0.71 MG/DL (0.40-0.90); LDL CHOLESTEROL 116 MG/DL (50-100); TOTAL CARBON DIOXIDE 30.9 MMOL/L (24-32); eCRCL 70 ML/MIN; eGFR 85 ML/MIN
[2024-09-28] MEDS: nicotine 21mg patch - 24 hr TD SCH (08:00)
--- NOTE | 2024-09-28 15:23 | PROGRESS NOTE ---
Daily Progress Note Providers to CC Feels better today, less cough less shortness of breath ~ Central Line/PICC still needed: No Gill-Non Protocol Gill Indications Met/Not Met: F/C Indications Not Met Antibiotic Timeout Antibiotic Ordered?: Yes MRSA Education MRSA Education Provided to pt: Yes Subjective As above Objective Vital Signs Date Time Temp Pulse Resp B/P (MAP) Pulse Ox O2 Delivery O2 Flow Rate FiO2 09/28/24 12:03 22 Nasal Cannula 2.0 09/28/24 11:57 72 92 28 09/28/24 06:00 96.8 160/73 (102) Vital signs, stable ,afebrile. Pulse Oximetry reflects adequate oxygenation 2 L oxygen nasal cannula General: well developed, well nourished. Awake , alert, and oriented x4, resting comfortably in the bed, in no acute distress . Skin: Warm, dry, no pallor, no rash or petechiae. HEENT: Atraumatic, normocephalic, EOMI, anicteric sclera B; pink conjunctiva; PERRLA, normal oropharynx, moist oral and nasal mucosa. Tympanic membrane , nose , throat clear. Neck: Trachea midline. Supple, full range of motion, no JVD, bruit , hepatojugular reflex , lymphadenopathy or masses, or other lesions Cardiac: Regular rhythm, regular rate no murmurs, rubs, or gallops. Normal S1 and S2, no S3 noticed. PMI is normal. Respiratory: Equal breath sounds bilaterally, no tachypnea; lungs clear to auscultation bilaterally, no wheezing ,rub or rales, or crackles. Chest wall is symmetric and without deformity. No signs of trauma. Chest wall is nontender. No signs of respiratory distress. Resonance is normal upon percussion bilaterally. Gastrointestinal: Abdomen symmetric, non-distended, soft, non-tender, normal bowel sounds x4 quadrant, normoactive, no hepatosplenomegaly , no masses , no bruit, no flank pain bilaterally. No voluntary guarding, rebound, or rigidity. No tenderness to percussion. No pulsatile masses. Equal femoral pulses. No Obando's sign or McBurney point tenderness. Back; no CVA tenderness bilaterally, no deformities. Neck and back are without deformity as well. No tenderness noted on palpation of the spinous processes. Spinous processes are midline. Cervical, thoracic, and lumbar paraspinal muscles are not tender and are without spasm. Musculoskeletal: Extremities, normal range of motion, non-tender, muscle strength 5/5 x 4. Negative Homans signs bilaterally on lower extremity. Distal pulses full symmetrical, no clubbing, cyanosis , edema. Neurological: Speech is clear, alert, and oriented x 4. No motor or sensory deficit, deep tendon reflexes normal, cerebellar intact. Cranial nerves II-XII intact. Psych: Alert and or appropriate, normal affect. Vascular: Good distal pulses, which are equal x4; capillary refill less than 2 seconds. Lymphatic, no lymphadenopathy. Result Diagram: 09/28/2452309/28/24523 Coagulation Studies Laboratory Tests Test 09/27/24 20:57 Prothrombin Time 9.7 SECONDS (9.0-12.0) INR International Normalized Ratio 0.9 INR Activated Partial Thromboplast Time 25 SECONDS (22-32) Coagulation Comments Problem\Assessment\Plan Assessment COPD exacerbation Acute hypoxic respiratory failure Hyponatremia Chronic tobacco abuse including currently Over therapeutic lithium level Chronic pain syndrome in exacerbation Chronic low-back pain in exacerbation Hypoalbuminemia CHF preserved ejection fraction in exacerbation Additional comorbidities, pre morbid obesity, peripheral neuropathy, bipolar disorder, history of substance abuse disorder, cardiomegaly, migraine headaches, history of CVA TIA, history of vaginal cancer Plan IV fluids, steroids antibiotics Correct electrolytes SVN DuoNeb, incentive spirometry PT evaluation and treatment Adjust lithium dose On nicotine patch Reconciled home medications DVT gastropathy prophylaxis addressed Sepsis Screening Reassessment Date: Sep 28, 2024 Date of Service: Sep 28, 2024 Billing Provider: MIKAYLA WILCOX MD Common Visit Codes: [id number] INP/OBS CARE(HIGH) MIKAYLA WILCOX MD Sep 28, 2024 15:23
[2024-09-29 02:00] VITALS: BP 130/70; PULSE 64; RESP 21; TEMP 98; O2SAT 96
[2024-09-29] MEDS: HYDROcodone/acetaminophen 10/325mg tab PO PRN (05:58)
[2024-09-29 06:00] VITALS: BP 135/83; PULSE 79; RESP 20; TEMP 97.2; O2SAT 92
[2024-09-29 06:37] LABS: MEAN PLATELET VOLUME 8.4 FL (7.4-10.4); RED CELL DISTRIBUTION WIDTH 14.7 % (11.5-14.5)
[2024-09-29 07:01] LABS: CREATININE 0.73 MG/DL (0.40-0.90); TOTAL CARBON DIOXIDE 31.4 MMOL/L (24-32); eCRCL 68 ML/MIN; eGFR 82 ML/MIN
[2024-09-29 08:29] VITALS: PULSE 72; RESP 24; O2SAT 98
[2024-09-29 08:38] VITALS: PULSE 74; RESP 24
[2024-09-29] MEDS: magnesium hydroxide 30ml (MOM) UD suspension PO PRN (09:43)
[2024-09-29 10:00] VITALS: BP 142/89; PULSE 69; RESP 19; TEMP 97.8; O2SAT 95
[2024-09-29 10:02] VITALS: RESP 18
[2024-09-29] MEDS ORDERED: PRED-892 PO (11:38)
[2024-09-29] MEDS ORDERED: AZIT500T18 PO (11:38)
--- NOTE | 2024-09-29 13:44 | DISCHARGE SUMMARY ---
Discharge Summary Providers to CC Feels better today, asking to be discharged home for family emergency reasons ~ Discharge Summary Assessment COPD exacerbation Acute hypoxic respiratory failure Hyponatremia Chronic tobacco abuse including currently Over therapeutic lithium level Chronic pain syndrome in exacerbation Chronic low-back pain in exacerbation Hypoalbuminemia CHF preserved ejection fraction in exacerbation Additional comorbidities, pre morbid obesity, peripheral neuropathy, bipolar disorder, history of substance abuse disorder, cardiomegaly, migraine headaches, history of CVA TIA, history of vaginal cancer Admission Diagnosis: COPD Admission Diagnosis Comment: COPD exacerbation Acute hypoxic respiratory failure Hyponatremia Chronic tobacco abuse including currently Over therapeutic lithium level Chronic pain syndrome in exacerbation Chronic low-back pain in exacerbation Hypoalbuminemia CHF preserved ejection fraction in exacerbation Additional comorbidities, pre morbid obesity, peripheral neuropathy, bipolar disorder, history of substance abuse disorder, cardiomegaly, migraine headaches, history of CVA TIA, history of vaginal cancer Hospital Course DATE OF ADMISSION: September 27, 2024 DATE OF DISCHARGE: September 29, 2024 Discharge Diagnosis\Comment: COPD exacerbation Acute hypoxic respiratory failure Hyponatremia Chronic tobacco abuse including currently Over therapeutic lithium level Chronic pain syndrome in exacerbation Chronic low-back pain in exacerbation Hypoalbuminemia CHF preserved ejection fraction in exacerbation Additional comorbidities, pre morbid obesity, peripheral neuropathy, bipolar disorder, history of substance abuse disorder, cardiomegaly, migraine headaches, history of CVA TIA, history of vaginal cancer Operations\Procedures: Non Consultants: Non Complications: Non Condition on DC: Stable Discharge Summary: This is a 58-year-old female with a known chronic history of COPD, chronic tobacco abuse including currently, bipolar disorder, history of substance abuse, hypoalbuminemia, CHF, cardiomegaly, migraine headaches, history of CVA TIA, pre morbid obesity, chronic pain syndrome, history of OR, peripheral neuropathy, presented today to emergency department chief complaint shortness of breath associated with cough and, low-back pain; in addition this is the patient who complaint back pain who presents for evaluation of right-sided low back pain that has been present for the last four days. No obvious trigger provocation. The particular palliating factors. Did not attempt to treat it. Denies any red flags of back pain such as urinary incontinence, fecal incontinence, urinary retention, saddle paresthesias. Denies IV drug use. Denies blood thinners. She states that she recently has been admitted to this facility, was intubated, due to lithium overdose. During intubation evidently she suffered aspiration and was diagnosed with a aspiration pneumonia. She was prescribed Augmentin, how ever the closed door pharmacy and [facility] has not delivered that yet.She complains of shortness a breath. Denies any chest pain. Normally not wearing the oxygen.Was noted to be hypoxic at 88% in the waiting room.Smokes, denies use of alcohol or drugs.Record review indicates history of CVA, TIA, COPD. Emergency department she was evaluated by physician was diagnosed with COPD exacerbation, and decision was made to admit patient on further evaluation treatment, patient started on IV antibiotics and steroids DON Mcguire. No additional complaint or concern. After admission patient was extensively evaluated treated, feels better today asking to be discharged home for family emergency reasons, I recommended to continue treatment as inpatient, patient refused elected to be discharged for family reasons, medication reconciled patient will be discharged in stable condition, follow-up PCP in the morning, return to emergency department if condition worsens, today on physical exam, Vital signs, stable ,afebrile. Pulse Oximetry reflects adequate oxygenation. General: well developed, well nourished. Awake , alert, and oriented x4, resting comfortably in the bed, in no acute distress . Skin: Warm, dry, no pallor, no rash or petechiae. HEENT: Atraumatic, normocephalic, EOMI, anicteric sclera B; pink conjunctiva; PERRLA, normal oropharynx, moist oral and nasal mucosa. Tympanic membrane , nose , throat clear. Neck: Trachea midline. Supple, full range of motion, no JVD, bruit , hepatojugular reflex , lymphadenopathy or masses, or other lesions Cardiac: Regular rhythm, regular rate no murmurs, rubs, or gallops. Normal S1 and S2, no S3 noticed. PMI is normal. Respiratory: Equal breath sounds bilaterally, no tachypnea; lungs clear to auscultation bilaterally, no wheezing ,rub or rales, or crackles. Chest wall is symmetric and without deformity. No signs of trauma. Chest wall is nontender. No signs of respiratory distress. Resonance is normal upon percussion bilaterally. Gastrointestinal: Abdomen symmetric, non-distended, soft, non-tender, normal bowel sounds x4 quadrant, normoactive, no hepatosplenomegaly , no masses , no bruit, no flank pain bilaterally. No voluntary guarding, rebound, or rigidity. No tenderness to percussion. No pulsatile masses. Equal femoral pulses. No Obando's sign or McBurney point tenderness. Back; no CVA tenderness bilaterally, no deformities. Neck and back are without deformity as well. No tenderness noted on palpation of the spinous processes. Spinous processes are midline. Cervical, thoracic, and lumbar paraspinal muscles are not tender and are without spasm. Musculoskeletal: Extremities, normal range of motion, non-tender, muscle strength 5/5 x 4. Negative Homans signs bilaterally on lower extremity. Distal pulses full symmetrical, no clubbing, cyanosis , edema. Neurological: Speech is clear, alert, and oriented x 4. No motor or sensory deficit, deep tendon reflexes normal, cerebellar intact. Cranial nerves II-XII intact. Psych: Alert and or appropriate, normal affect. Vascular: Good distal pulses, which are equal x4; capillary refill less than 2 seconds. Lymphatic, no lymphadenopathy. *Problems/Diagnosis: (1) Acute exacerbation of chronic obstructive airways disease Status: Acute (2) Tobacco abuse Status: Acute Total Time Spent on D/C: > 30 Minutes Date of Service: Sep 29, 2024 Billing Provider: MIKAYLA WILCOX MD Common Visit Codes: [id number] DISCH DAY >30min MIKAYLA WILCOX MD Sep 29, 2024 13:44
== END 2024-09-29 14:10 | disposition home or self-care (01) | DRG 133 ==
LOC: ER 12:15 → ED HOLD 18:07 → ORTHO 4S 21:37
PROVIDERS: ADMIT Family Medicine; ATTEND Family Medicine
PROC: B32T1ZZ Computerized Tomography (CT Scan) of Left Pulmonary Artery using Low Osmolar Contrast (ICD-10-PCS; principal; 2024-09-27)
PROC: B3201ZZ Computerized Tomography (CT Scan) of Thoracic Aorta using Low Osmolar Contrast (ICD-10-PCS; 2024-09-27)
PROC: B32S1ZZ Computerized Tomography (CT Scan) of Right Pulmonary Artery using Low Osmolar Contrast (ICD-10-PCS; 2024-09-27)
DX: J96.01 Acute respiratory failure with hypoxia (principal); I50.33 Acute on chronic diastolic (congestive) heart failure; E87.1 Hypo-osmolality and hyponatremia; E88.09 Other disorders of plasma-protein metabolism, not elsewhere classified; J44.1 Chronic obstructive pulmonary disease with (acute) exacerbation; G89.4 Chronic pain syndrome; M54.50 Low back pain, unspecified; K21.9 Gastro-esophageal reflux disease without esophagitis; G62.9 Polyneuropathy, unspecified; F31.9 Bipolar disorder, unspecified; F41.9 Anxiety disorder, unspecified; G43.909 Migraine, unspecified, not intractable, without status migrainosus; F20.9 Schizophrenia, unspecified; E78.00 Pure hypercholesterolemia, unspecified; F19.10 Other psychoactive substance abuse, uncomplicated; Z85.44 Personal history of malignant neoplasm of other female genital organs; Z86.73 Personal history of transient ischemic attack (TIA), and cerebral infarction without residual deficits; Z88.0 Allergy status to penicillin; Z88.8 Allergy status to other drugs, medicaments and biological substances; Z72.0 Tobacco use; I25.2 Old myocardial infarction
CPT/HCPCS: 36415; 71045; 71275; 72131; 72192; 73700; 80048; 80053; 80061; 80178; 80305; 80320; 81003; 83036; 83605; 83735; 83880; 84100; 84484; 85025; 85610; 85730; 87040; 87081; 93005; 94640; 94760; 96365; 96375; 97116; 97161; 97530; 99285; G0378; J1644; J1956; J2270; J2360; J2919; J7030; Q9967

== ENCOUNTER 2024-10-05 12:52 | Emergency (ER) | payer MEDICAID ==
[~2024-10-05] VITALS: Ht 157.5 cm; Wt 82.7 kg
[~2024-10-05 12:52] MED LIST changes: -ARIP15TA68 PO; -ARIP400S3 IM; +PRED-892 PO
[2024-10-05 12:57] VITALS: BP 130/87; PULSE 93; TEMP 98.5; O2SAT 99
--- NOTE | 2024-10-05 15:05 | Physician Documentation ---
History of Present Illness ~ Chief Complaint: Back Pain Stated Complaint: BACK AND LEG PAIN Time Seen by MD: 14:24 Primary Medical Doctor: jose rafael [facility] Patient is a 58-year-old female that presents to the emergency department for pain associated with a chronic back pain. Patient reports that this pain is consistent with the pain that she always has he denies any numbness tingling inability to ambulate any incontinence of bowel or bladder any numbness of her perineal area at this time. Reports that she is out of her lidocaine patches and would like a refill. Medication Reconciliation Allergies: Coded Allergies: Penicillins (Unverified Allergy, Intermediate, 10/05/24) divalproex sodium (Verified Allergy, Mild, 10/05/24) simvastatin (Verified Adverse Reaction, Intermediate, BLURRED VISION AND SLEEPY., 10/05/24) Scheduled Albuterol Sulfate (Ventolin Hfa), 2 PUFFS INH Q4HPRN Pantoprazole Sodium (Pantoprazole Sodium), 1 TAB PO BID, (Reported) Prednisolone (Prednisolone), 1 TAB PO BID Discontinued Medications Azithromycin (Zithromax Tri-Chas), 1 TAB PO DAILY Discontinued Reason: Auto Discontinued Past Medical History Past Medical History: CVA/TIA/Stroke, Migraine, Peripheral Neuropathy, Congestive Heart Failure, High Cholesterol, Myocardial Infarction, Asthma, COPD, Pneumonia, Previously Intubated, GERD, Arthritis, Chronic Back Pain, Osteopenia, Anxiety, Depression, Schizophrenia Past Surgical History: no surgical history Patient History: Patient reports no known family medical history. Alcohol Use: None Drug Use: none Lives with: Family Lives In: Home Occupation: disabled Review of Systems ROS VITALS: Reviewed and as above. GENERAL: Alert, no apparent distress. HEENT: Normocephalic, atraumatic, PERRL, EOMI, dry mucosa, no erythema RESPIRATORY: Lungs clear, normal breath sounds, no respiratory distress. CHEST: No accessory muscle use, no retractions CV: Regular rate, rhythm, no edema, no murmur, No: JVD GI: Soft, non-tender, bowels sounds present, no rebound, guarding, or rigidity BACK: No CVA tenderness, or swelling MUSCULOSKELETAL No deformities, no edema SKIN: Warm and dry, no rash NEURO: Oriented x4, No motor or sensory deficit PSYCH: Normal mood and affect, no agitation As stated above in the HPI, otherwise all systems are reviewed and negative. Physical Exam Physical Exam Vital Signs: Temperature: 98.5, Source: Temporal, Heart Rate: 93, Respiratory Rate: 16, BP: 130/87, Pulse Oximetry: 99, Weight: 82.730 Oxygen Flow Rate: 0 Progress Results/Orders Results/Orders Orders - REYNA LOMBARDI RARE/ENDANGERED SPECIES SPECIALIST Ketorolac Trometh 30mg/Ml Vial (Toradol (10/05/24 15:00) Methylprednisolone Sod Succ (Solumedrol (10/05/24 15:00) Acetaminophen 325mg Tablet (Tylenol Tabl (10/05/24 15:00) Vital Signs 10/05/24 12:57 Temp 98.5 Pulse 93 Resp 16 B/P (MAP) 130/87 Pulse Ox 99 O2 Flow Rate 0 Medical Decision Making Findings This patient presents with back pain most consistent with lumbosacral sprain versus sciatica. Positive straight leg raise. No back pain red flags on history or physical. Presentation not consistent with malignancy (lack of history of malignancy, lack of B symptoms), fracture (no trauma, no bony tenderness to palpation), cauda equina (no bowel or urinary incontinence/retention, no saddle anesthesia, no distal weakness), AAA, viscus perforation, osteomyelitis or epidural abscess (no IVDU, vertebral tenderness), renal colic, pyelonephritis (afebrile, no CVAT, no urinary symptoms). Given the current clinical picture, no additional imaging indicated. Patient is also declines additional imaging. Differential Dx:Considerations: Include: AAA, Aortic dissection, , Appendicitis, Bowel obstruction, Cholelithiasis, Cholangitis, DJD, Ectopic , Fracture, Hepatitis, HNP, Musculoskeletal pain, Pancreatitis, Pyelonephritis, Strain, Urinary obstruction, Urolithiasis, Ovarian torsion, Other Departure Disposition: 01 HOME / SELF CARE / HOMELESS Impression: Primary Impression: Back problem Additional Impressions: Strain of lumbar region Lumbosacral strain Sciatica Discharge Instructions: Chronic Back Pain, Sciatica, Lumbosacral Strain Additional Instructions: Evaluated in the emergency department for evaluation of your chronic lumbosacral back pain with possible sciatica. He had been given Toradol a steroid injection to help with the inflammation and Tylenol here in the emergency department today. We have prescribed you lidocaine patches for discomfort. Please follow up with your primary care provider as needed. Return to the emergency department if you have any worsening or recurrent symptoms or any additional concerning symptoms that we discussed here today I ED numbness or tingling in your upper lower extremities bowel or bladder incontinence any numbness if your perineal area or significant increasing pain. Referrals: NO PRIMARY CARE PROVIDER (PCP) Education Educated: Patient Educated regarding: diagnosis, treatment, need for follow up Signature Scribe Signature: AScribed for Reyna Lombardi by DARÍO Phan . 10/05/24 15:05 Attestation: REYNA MCGOWAN Oct 05, 2024 15:05
[2024-10-05 15:31] VITALS: RESP 16
[2024-10-05] MEDS: ketorolac trometh 30MG/ML vial 30 MG/ML VIAL IV ONE (15:31)
== END 2024-10-05 15:40 | disposition home or self-care (01) ==
LOC: ER 12:53
DX: S39.012A Strain of muscle, fascia and tendon of lower back, initial encounter (principal); E78.00 Pure hypercholesterolemia, unspecified; F20.9 Schizophrenia, unspecified; I50.9 Heart failure, unspecified; J44.9 Chronic obstructive pulmonary disease, unspecified; M19.90 Unspecified osteoarthritis, unspecified site; F41.9 Anxiety disorder, unspecified; F32.A Depression, unspecified; Z86.73 Personal history of transient ischemic attack (TIA), and cerebral infarction without residual deficits; Z88.0 Allergy status to penicillin; X58.XXXA Exposure to other specified factors, initial encounter; Y93.89 Activity, other specified; Y92.89 Other specified places as the place of occurrence of the external cause; Y99.8 Other external cause status
CPT/HCPCS: 96372; 96374; 99284; J1885; J2919

== ENCOUNTER 2024-10-26 12:09 | Emergency (ER) | payer MEDICAID ==
[~2024-10-26] VITALS: Ht 157.5 cm; Wt 82.7 kg
[2024-10-26 12:13] VITALS: TEMP 97.6
--- NOTE | 2024-10-26 14:21 | ELECTROCARDIOGRAPH REPORT ---
[facility] Test Date: 2024-10-26 Test Time: 14:18:48 Pat Name: DARSHAN ACOSTA [facility]- [facility]-[id number] Room: Gender: F [employer]nc [employer] Service Engineer: : 1965 Requested By: FANNIE HDEZ Order Number: [id number] Reading MD: Measurements Intervals [place] Rate: 81 P: 75 DC: 140 QRS: 78 QRSD: 93 T: 77 QT: 373 QTc: 433 Interpretive Statements Sinus rhythm Low voltage, precordial leads Abnrm T, consider ischemia, anterolateral lds Please click the below link to view image of tracing.
--- NOTE | 2024-10-26 14:28 | RADIOLOGY REPORT ---
DI CHEST,SINGLE VIEW, HISTORY: CHEST PAIN COMPARISON: DI CHEST,SINGLE VIEW on DOS: 09/27/24, DI CHEST,SINGLE VIEW on DOS: 07/24/23, DI CHEST,SINGL E VIEW on DOS: 10/22/22 DI CHEST,SINGLE VIEW on DOS: 09/27/24, DI CHEST,SINGLE VIEW on DOS: 07/24/23, DI CHEST,SINGLE VIEW on DO S: 10/22/22 TECHNICAL DATA: 1 view of the chest was obtained. FINDINGS: Lines and tubes: None Cardiomediastinal silhouette: normal Pulmonary vasculature: normal Lung expansion: normal Lung airspace: normal Lung interstitium: normal Pleura: normal Pneumothorax: no Bones: Unremarkable Other: no IMPRESSION: No acute intrathoracic abnormality.
[2024-10-26 14:36] LABS: MEAN PLATELET VOLUME 7.8 FL (7.4-10.4); RED CELL DISTRIBUTION WIDTH 14.7 % (11.5-14.5)
[2024-10-26 14:53] LABS: CREATININE 0.65 MG/DL (0.40-0.90); PRO BRAIN NATRIURETIC PEPTIDE 369 PG/ML (0-125); TOTAL CARBON DIOXIDE 34.1 MMOL/L (24-32); eCRCL 76 ML/MIN; eGFR > 90 ML/MIN
[2024-10-26] MEDS ORDERED: AZIT250T2 PO (15:08)
--- NOTE | 2024-10-26 15:09 | Physician Documentation ---
History of Present Illness ~ General Chief Complaint: Multiple Medical Complaints Stated Complaint: WEAKNESS Time Seen by MD: 14:03 Primary Medical Doctor: jose rafael Mode of Arrival: POV History of Present Illness Initial Comments Patient in with a history of COPD. States she has just felt a bit of an increased cough over the past several days and just feels weak. Not really feeling very good. Denies any possibility of UTI. States she does not get them. Does have some scabs on her arm that she keeps scratching over the past month or 2. Denies any meth use. Does still smoke. Does not use oxygen at home. Does have access to a nebulizer if needed along with medication. Medication Reconciliation Allergies: Coded Allergies: Penicillins (Unverified Allergy, Intermediate, 10/26/24) divalproex sodium (Verified Allergy, Mild, 10/26/24) simvastatin (Verified Adverse Reaction, Intermediate, BLURRED VISION AND SLEEPY., 10/26/24) Scheduled Albuterol Sulfate (Ventolin Hfa), 2 PUFFS INH Q4HPRN Azithromycin (Zithromax), 1 TAB PO UD Pantoprazole Sodium (Pantoprazole Sodium), 1 TAB PO BID, (Reported) Prednisolone (Prednisolone), 1 TAB PO BID Prednisone* (Prednisone*), 3 TAB PO DAILY Past Medical History Past Medical History: CVA/TIA/Stroke, Migraine, Peripheral Neuropathy, Congestive Heart Failure, High Cholesterol, Myocardial Infarction, Asthma, COPD, Pneumonia, Previously Intubated, GERD, Arthritis, Chronic Back Pain, Osteopenia, Anxiety, Depression, Schizophrenia Past Surgical History: no surgical history Patient History: Patient reports no known family medical history. Alcohol Use: None Drug Use: none Lives with: Family Lives In: Home Occupation: disabled Review of Systems All Other Systems at this time: Reviewed and Negative Physical Exam Physical Exam Vital Signs: Temperature: 97.6, Source: Temporal, Heart Rate: 92, Respiratory Rate: 18, BP: 134/77, Pulse Oximetry: 95, Weight: 82.730 Oxygen Flow Rate: 0 General Appearance: other General Appearance Fatigued appearing Head: normal inspection Neck: non-tender, full range of motion Respiratory: other (Mild wheezing) Chest: no accessory muscle use Gastrointestinal: normal palpation, non-tender Extremities: normal range of motion, non-tender Neurologic: oriented x4 Motor / Sensory: no motor deficit, no sensory deficit Psychiatric: normal mood/affect Skin: normal color, warm/dry Progress Results/Orders Results/Orders Orders - FANNIE HDEZ MD Covid19 Binax Poc Result Entry (10/26/24 14:04) Chest,Single View (10/26/24 14:11) Page Hospitalist (10/26/24 16:27) Completed Orders - FANNIE HDEZ MD Cbc/Diff (10/26/24 14:11) PBNP (10/26/24 14:11) Chest,Single View (10/26/24 14:11) Electrocardiogram (10/26/24 14:11) BMP (10/26/24 14:11) Hs Troponin I W Calculations (10/26/24 14:11) Ipratropium/Albuterol Nebule (Ipratrop/A (10/26/24 15:25) Prednisone Tablet (Prednisone Tablet) (10/26/24 15:25) Ketorolac Trometh 15mg/Ml Vial (Toradol (10/26/24 15:50) Medications Received in ER Medications (Trade) Dose Ordered Sig/It[place] Route PRN Reason Start Time Stop Time Status Last Admin Dose Admin (ipratrop/ albuterol 0.5-3(2.5) MG/3ml nebule) 3 ml ONCE ONCE NEB 10/26/24 15:25 10/26/24 15:27 DC 10/26/24 15:36 3 ML (predniSONE tablet) 60 mg ONCE ONCE PO 10/26/24 15:25 10/26/24 15:27 DC 10/26/24 15:36 60 MG (Toradol injection) 30 mg ONCE ONCE IM 10/26/24 15:50 10/26/24 15:51 DC 10/26/24 16:03 30 MG Vital Signs 10/26/24 10/26/24 10/26/24 10/26/24 12:13 14:05 14:17 15:37 Temp 97.6 Pulse 82 92 81 Resp 20 18 22 B/P (MAP) 136/86 134/77 (96) Pulse Ox 91 95 91 O2 Delivery Room Air* O2 Flow Rate 0 0 FiO2 21 10/26/24 10/26/24 10/26/24 10/26/24 15:46 16:03 16:13 16:54 Pulse 77 75 Resp 22 16 19 20 B/P (MAP) 137/87 (104) 137/87 Pulse Ox 93 92 92 O2 Delivery Nasal Cannula* O2 Flow Rate 2 0 FiO2 28 Laboratory Tests Test 10/26/24 14:23 10/26/24 14:25 SARS-CoV-2 Antigen (Rapid) Negative White Blood Count 8.1 Red Blood Count 4.39 Hemoglobin 13.4 Hematocrit 41.0 Mean Corpuscular Volume 93.3 Mean Corpuscular Hemoglobin 30.4 Mean Corpuscular Hemoglobin Concent 32.6 L Red Cell Distribution Width 14.7 H Platelet Count 240 Mean Platelet Volume 7.8 Neutrophils (%) (Auto) 58.1 Lymphocytes (%) (Auto) 29.2 Monocytes (%) (Auto) 8.8 Eosinophils (%) (Auto) 3.5 Basophils (%) (Auto) 0.4 Neutrophils # (Auto) 4.7 Lymphocytes # (Auto) 2.4 Monocytes # (Auto) 0.7 Eosinophils # (Auto) 0.3 Basophils # (Auto) 0.0 CBC Comment Sodium Level 135 Potassium Level 4.6 Chloride Level 99 Carbon Dioxide Level 34.1 H Anion Gap 2 L Blood Urea Nitrogen 7 Creatinine 0.65 Estimated GFR/1.73 m2 > 90 BUN/Creatinine Ratio 10.8 Glucose Level 94 Calcium Level 8.6 Troponin I High Sensitivity 13 Pro-B-Type Natriuretic Peptide 369 H Albumin 3.3 L Chemistry Comments Medical Decision Making Differential Diagnosis Workup relatively unremarkable likely COPD exacerbation. Blood work otherwise normal. Did not collect urinalysis. Chest x-ray with no significant findings. Patient was saturating 90 5% on room air while lying down but when she went up to go to the bathroom she dropped to the low 70s. Initially I felt I could send her out on a Z-Chas and prednisone. Gave a DuoNeb in the ED. This improved her to the low 80s while ambulate. Test with the patient that I wanted to admit her to get her set up for oxygen and make sure all her medications were in place. Patient refused admission. Stated she did not not want oxygen and did not want to be admitted to the hospital. Did give a Z-Chas and prednisone. Discharged home against medical advice. Departure Disposition: LEFT AGAINST MEDICAL ADVICE Impression: Primary Impression: COPD exacerbation Additional Impression: Hypoxia Condition: Guarded Discharge Instructions: COPD and Physical Activity Additional Instructions: Follow up with your doctor in 1-2 weeks. Return if new or worsening symptoms. Try not scratching her arms for the next couple of weeks to allow them to heal. Referrals: NO PRIMARY CARE PROVIDER (PCP) Prescriptions Prednisone* (Prednisone*) 20 Mg Tablet 3 TAB PO DAILY, #12 TAB Prov: FANNIE HDEZ MD 10/26/24 Azithromycin (Zithromax) 250 Mg Tablet 1 TAB PO UD for 5 Days, #6 TAB 2 the first day followed by 1 for days 2-5 Prov: FANNIE HDEZ MD 10/26/24 Education Educated: Patient Educated regarding: diagnosis, treatment, prognosis, need for follow up Signature Scribe Signature: No scribe Attestation: No scribe FANNIE HDEZ MD Oct 26, 2024 15:09
[2024-10-26] MEDS: ipratropium/albuterol 3ml nebule NEB ONE (15:36)
[2024-10-26 15:37] VITALS: PULSE 81; RESP 22; O2SAT 91
[2024-10-26 15:46] VITALS: PULSE 77; RESP 22; O2SAT 93
[2024-10-26] MEDS: ketorolac trometh 15mg/ml vial 15 MG/ML ML IM ONE (16:03)
[2024-10-26 16:13] VITALS: PULSE 75
[2024-10-26] MEDS ORDERED: PRED20TA PO (16:38)
[2024-10-26 16:54] VITALS: BP 137/87; RESP 20; O2SAT 92
== END 2024-10-26 16:57 | disposition left against medical advice (07) ==
LOC: ER 12:10
DX: J44.1 Chronic obstructive pulmonary disease with (acute) exacerbation (principal); R09.02 Hypoxemia; E78.00 Pure hypercholesterolemia, unspecified; F20.9 Schizophrenia, unspecified; I50.9 Heart failure, unspecified; I25.2 Old myocardial infarction; G89.29 Other chronic pain; M19.90 Unspecified osteoarthritis, unspecified site; G43.909 Migraine, unspecified, not intractable, without status migrainosus; G62.9 Polyneuropathy, unspecified; K21.9 Gastro-esophageal reflux disease without esophagitis; F41.9 Anxiety disorder, unspecified; F32.A Depression, unspecified; Z86.73 Personal history of transient ischemic attack (TIA), and cerebral infarction without residual deficits; Z88.0 Allergy status to penicillin; Z88.8 Allergy status to other drugs, medicaments and biological substances; Z79.899 Other long term (current) drug therapy; Z20.822 Contact with and (suspected) exposure to COVID-19
CPT/HCPCS: 36415; 71045; 80048; 83880; 84484; 85025; 87811; 93005; 94640; 96372; 99285; J1885; J7512; 94760; A4615

== ENCOUNTER 2024-11-17 09:10 | Emergency (ER) | payer MEDICAID ==
[~2024-11-17] VITALS: Ht 157.5 cm; Wt 86.4 kg
[~2024-11-17 09:10] MED LIST changes: +PRED20TA PO
--- NOTE | 2024-11-17 10:17 | Physician Documentation ---
History of Present Illness ~ Chief Complaint: Mechanical Fall Stated Complaint: PAIN FROM PAST FALL Time Seen by MD: 10:13 Primary Medical Doctor: jose rafael WOOD Patient is seen today with complaints of pain of her left foot and left wrist and lower back after she fell after stubbing her left toes tripped and fell forward. Patient denies any head strike and has no new or other concern or complaint at this time. She does admit to some pain radiating down her right leg from her back. She denies any weakness and is ambulatory. Tetanus within 5 Years?: No Medication Reconciliation Allergies: Coded Allergies: Penicillins (Unverified Allergy, Intermediate, 11/17/24) divalproex sodium (Verified Allergy, Mild, 11/17/24) simvastatin (Verified Adverse Reaction, Intermediate, BLURRED VISION AND SLEEPY., 11/17/24) Scheduled Albuterol Sulfate (Ventolin Hfa), 2 PUFFS INH Q4HPRN Pantoprazole Sodium (Pantoprazole Sodium), 1 TAB PO BID, (Reported) Prednisolone (Prednisolone), 1 TAB PO BID Prednisone* (Prednisone*), 3 TAB PO DAILY Past Medical History Past Medical History: CVA/TIA/Stroke, Migraine, Peripheral Neuropathy, Congestive Heart Failure, High Cholesterol, Myocardial Infarction, Asthma, COPD, Pneumonia, Previously Intubated, GERD, Arthritis, Chronic Back Pain, Osteopenia, Anxiety, Depression, Schizophrenia Past Surgical History: no surgical history Patient History: Patient reports no known family medical history. Alcohol Use: None Drug Use: none Lives with: Family Lives In: Home Occupation: disabled Review of Systems Constitutional: Denies: chills, fever, weakness Eyes: Denies: pain, blurred vision ENT: Denies: ear pain, nose pain, throat pain, mouth pain Respiratory: Denies: cough, shortness of breath Cardiovascular: Denies: chest pain, palpitations Gastrointestinal: Denies: abdominal pain, nausea, vomiting Genitourinary: Denies: burning, dysuria Female Genitalia: Denies: vaginal discharge, pelvic pain Neurological: Denies: headache, dizziness Musculoskeletal: Denies: pain, swelling Integumentary: Denies: rash, lesions Allergic/Immunologic: Denies: hives, itching Hematologic/Lymphatic: Denies: no symptoms reported Psychiatric: Denies: depression, anxiety Physical Exam Vital Signs: Temperature: 97.6, Source: Temporal, Heart Rate: 94, Respiratory Rate: 18, BP: 146/93, Pulse Oximetry: 93, Weight: 86.360 Physical Exam General: Awake and Alert, no acute distress. HEENT: Conjunctiva pink, Sclera clear, Mucus Membranes moist. Neck: Supple without masses and tenderness. Resp: Unlabored. Lungs clear to auscultation bilaterally. Heart: Regular Rate and rhythm, normal S1 and S2 without murmur, rub or gallop. Abdomen: Soft and non tender no organomegaly Musculoskeletal: Patient on exam does have significantly decreased range of motion of the lumbar spine in all planes of motion. Patient has tenderness to palpation of the left 3rd toe with swelling and ecchymosis noted. Patient also has some swelling noted of left wrist with tenderness to palpation in the radiocarpal joint. Patient is neurovascularly intact distally of the bilateral upper and lower extremities. Motor function intact distally. Extremities: No cyanosis,clubbing or edema. Skin: Warm and Dry. Progress Results/Orders Results/Orders Orders - ROBERTO MESSINA Lumbar Spine Limited (11/17/24 10:13) Wrist, Complete (3vw Min) (11/17/24 10:13) Foot, Complete (3vw Min) (11/17/24 10:13) Completed Orders - ROBERTO MESSINA Lumbar Spine Limited (11/17/24 10:13) Wrist, Complete (3vw Min) (11/17/24 10:13) Foot, Complete (3vw Min) (11/17/24 10:13) Vital Signs 11/17/24 11/17/24 09:21 11:22 Temp 97.6 Pulse 94 Resp 18 B/P (MAP) 146/93 Pulse Ox 93 EKG/XRAY/CT/US/VASC/MRI Bone/Soft Tissue X-Ray (Spine) : Additional Comment X-ray of the lumbar spine interpreted by myself today shows no sign of vertebral body compression and no sign of acute fracture, facet arthropathy noted. DIAGNOSTIC RADIOLOGY Patient: DARSHAN ACOSTA Medical Record: [id number] [facility] : 1965, Age: 59 Sex: Female Location: ER Patient Status: REG ER Service Date/Time: 11/17/241012 Ordering Physician: ROBERTO MESSINA PAC Exam: LUMBAR SPINE LIMITED Indication: low back pain after trauma Technique: DI LUMBAR SPINE LIMITEDLSPINE LTD Comparison: None FINDINGS/IMPRESSION: The lumbar vertebral body heights are maintained. [id number] multilevel disc space narrowing. 4 mm anterolisthesis L4 upon L5. Moderate to advanced facet hypertrophic changes. Abdominal aortic atherosclerotic disease. Cholecystectomy clips. Electronically Signed by:ESTHER LAW MD Date & Time: 11/17/24 1120 Dictated by: ESTHER LAW MD Dictation date and time: 11/17/24 1035 Primary Care Provider: NO PRIMARY CARE PROVIDER cc: ROBERTO MESSINA PAC ~ Bone/Soft Tissue X-Ray (Ext.) : Additional Comment X-ray of the left foot interpreted by myself today shows oblique fracture of the left 3rd proximal phalanx. Bones are otherwise well aligned and no other fracture noted. X-ray of left wrist interpreted by myself today shows no sign of acute fracture, arthritis in joint space narrowing of the radiocarpal joint of the left wrist. No other abnormalities noted. Bones otherwise in anatomic along DIAGNOSTIC RADIOLOGY Patient: DARSHAN ACOSTA Medical Record: [id number] [facility] : 1965, Age: 59 Sex: Female Location: ER Patient Status: REG ER Service Date/Time: 11/17/241012 Ordering Physician: ROBERTO MESSINA PAC Exam: WRIST, COMPLETE (3VW MIN) CLINICAL INDICATION: left wrist pain after trauma TECHNIQUE: DI WRIST, COMPLETE (3VW MIN) Comparison: DI FOOT, COMPLETE (3VW MIN) on DOS: 11/17/24, DI ANKLE, COMPLETE(3VW MIN) on DOS: 09/25/23 FINDINGS/IMPRESSION: : There is no evidence of acute fracture or dislocation. Soft tissues are unremarkable. Moderate degenerative changes of the radiocarpal joint space. Electronically Signed by:ADILSON MELENDREZ MD Date & Time: 11/17/241115 Dictated by: ADILSON MELENDREZ MD Dictation date and time: 11/17/24 111 Primary Care Provider: NO PRIMARY CARE PROVIDER cc: ROBERTO MESSINA PAC ~ DIAGNOSTIC RADIOLOGY Patient: DARSHAN ACOSTA Medical Record: [id number] : 1965, Age: 59 Sex: Female Location: ER Patient Status: [facility] ER Service Date/Time: 11/17/24/ 1013 Ordering Physician: ROBERTO MESSINA Exam: FOOT, COMPLETE (3VW MIN) Indication: left foot pain after trauma Technique: DI FOOT, COMPLETE (3VW MIN)FOOT CPLT Comparison: None FINDINGS/IMPRESSION: Oblique fracture 3rd proximal phalanx. Surrounding soft tissue edema. Mild achilles enthesopathy. Mild degenerative changes of the left foot. Electronically Signed by:ESTHER LAW MD Date & Time: 11/17/241118 Dictated by: ESTHER LAW MD Dictation date and time: 11/17/24 111 Primary Care Provider: NO PRIMARY CARE PROVIDER cc: ROBERTO MESSINA PAC ~ Medical Decision Making Findings Patient is seen today with complaints of pain of her left foot and left wrist and lower back after she fell after stubbing her left toes tripped and fell forward. Patient denies any head strike and has no new or other concern or complaint at this time. She does admit to some pain radiating down her right leg from her back. She denies any weakness and is ambulatory. 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 X-ray of the left foot did show fracture of the left 3rd proximal phalanx. Patient x-ray of lumbar spine showed no acute changes. Patient will be given Tylenol and ibuprofen in the ED today as well as prescription to go home on for pain relief. Patient's declined walking boot at this time and was given Brandon bandage and will use activity modification and monitor left 3rd toe closely for resolution of fracture of the proximal phalanx. She will follow up with Orthopedics in 1-2 weeks or as needed sooner. Return to ED with any worsening, concerning or changing symptoms. 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 X-ray of the left foot did show fracture of the left 3rd proximal phalanx. Patient x-ray of lumbar spine showed no acute changes. Patient will be given Tylenol and ibuprofen in the ED today as well as prescription to go home on for pain relief. Patient's declined walking boot at this time and was given Brandon bandage and will use activity modification and monitor left 3rd toe closely for resolution of fracture of the proximal phalanx. She will follow up with Orthopedics in 1-2 weeks or as needed sooner. Return to ED with any worsening, concerning or changing symptoms. Referrals: NO PRIMARY CARE PROVIDER (PCP) Signature Scribe Signature: No scribe Attestation: No scribe ROBERTO MESSINA PAC Nov 17, 2024 10:17
[2024-11-17 11:10] VITALS: BP 157/87
--- NOTE | 2024-11-17 11:18 | RADIOLOGY REPORT ---
Indication: left foot pain after trauma Technique: DI FOOT, COMPLETE (3VW MIN)FOOT CPLT Comparison: None FINDINGS/IMPRESSION: Oblique fracture 3rd proximal phalanx. Surrounding soft tissue edema. Mild achilles enthesopathy. Mild degenerative changes of the left foot.
--- NOTE | 2024-11-17 11:18 | RADIOLOGY REPORT ---
CLINICAL INDICATION: left wrist pain after trauma TECHNIQUE: DI WRIST, COMPLETE (3VW MIN) Comparison: DI FOOT, COMPLETE (3VW MIN) on DOS: 11/17/24, DI ANKLE, COMPLETE(3VW MIN) on DOS: 09/25/23 FINDINGS/IMPRESSION: : There is no evidence of acute fracture or dislocation. Soft tissues are unremarkable. Moderate degenerative changes of the radiocarpal joint space.
--- NOTE | 2024-11-17 11:19 | RADIOLOGY REPORT ---
Indication: low back pain after trauma Technique: DI LUMBAR SPINE LIMITEDLSPINE LTD Comparison: None FINDINGS/IMPRESSION: The lumbar vertebral body heights are maintained. Ihja-or-gxgwswag multilevel disc space narrowing. 4 mm anterolisthesis L4 upon L5. Moderate to advanced facet hypertrophic changes. Abdominal aortic atherosclerotic disease. Cholecystectomy clips.
[2024-11-17] MEDS: ibuprofen tablet 400 MG TABLET PO STA (12:08)
[2024-11-17 12:10] VITALS: PULSE 90; RESP 18; TEMP 97.6; O2SAT 96
== END 2024-11-17 12:14 | disposition home or self-care (01) ==
LOC: ER 09:11
DX: S92.515A Nondisplaced fracture of proximal phalanx of left lesser toe(s), initial encounter for closed fracture (principal); M54.50 Low back pain, unspecified; M25.532 Pain in left wrist; E78.00 Pure hypercholesterolemia, unspecified; F20.9 Schizophrenia, unspecified; I25.2 Old myocardial infarction; I50.9 Heart failure, unspecified; J44.9 Chronic obstructive pulmonary disease, unspecified; K21.9 Gastro-esophageal reflux disease without esophagitis; F41.9 Anxiety disorder, unspecified; F32.A Depression, unspecified; G43.909 Migraine, unspecified, not intractable, without status migrainosus; M19.90 Unspecified osteoarthritis, unspecified site; G62.9 Polyneuropathy, unspecified; Z86.73 Personal history of transient ischemic attack (TIA), and cerebral infarction without residual deficits; Z88.0 Allergy status to penicillin; Z88.8 Allergy status to other drugs, medicaments and biological substances; Z79.899 Other long term (current) drug therapy; W01.0XXA Fall on same level from slipping, tripping and stumbling without subsequent striking against object, initial encounter; Y93.89 Activity, other specified; Y92.89 Other specified places as the place of occurrence of the external cause; Y99.8 Other external cause status
CPT/HCPCS: 72100; 73110; 73630; 99284

== ENCOUNTER 2024-11-27 08:35 | Emergency (ER) | payer MEDICAID ==
[~2024-11-27] VITALS: Ht 157.5 cm; Wt 90.0 kg
[~2024-11-27 08:35] MED LIST changes: -PRED20TA PO
[2024-11-27 08:37] VITALS: BP 179/106; PULSE 95; O2SAT 95
--- NOTE | 2024-11-27 09:10 | Physician Documentation ---
History of Present Illness ~ Chief Complaint: Hip pain Stated Complaint: HIP PAIN Time Seen by MD: 08:49 OK to notify your PCP?: Yes Primary Medical Doctor: jose rafael Mode of Arrival: POV HPI 59-year-old female patient with a history of COPD, CHF, dyslipidemia, bipolar disorder, history of substance abuse (methamphetamine) in the past and history of CVA, history of migraine came to the emergency room because of right hip pain which is getting worse since the fall last week. The hip pain has been going on for sometimes. She does not use home oxygen. She said her breathing is fine. She says she can ambulate as long as she has some thing to lean on. She has been using crutches for ambulation. No other symptoms. Medication Reconciliation Allergies: Coded Allergies: Penicillins (Unverified Allergy, Intermediate, 11/17/24) divalproex sodium (Verified Allergy, Mild, 11/17/24) simvastatin (Verified Adverse Reaction, Intermediate, BLURRED VISION AND SLEEPY., 11/17/24) Scheduled Albuterol Sulfate (Ventolin Hfa), 2 PUFFS INH Q4HPRN Pantoprazole Sodium (Pantoprazole Sodium), 1 TAB PO BID, (Reported) Prednisolone (Prednisolone), 1 TAB PO BID Scheduled PRN Tramadol Hcl (Tramadol Hcl), 1 TAB PO TID PRN PRN for pain Discontinued Medications Prednisone* (Prednisone*), 3 TAB PO DAILY Discontinued Reason: Auto Discontinued Past Medical History Past Medical History: CVA/TIA/Stroke, Migraine, Peripheral Neuropathy, Congestive Heart Failure, High Cholesterol, Myocardial Infarction, Asthma, COPD, Pneumonia, Previously Intubated, GERD, Arthritis, Chronic Back Pain, Osteopenia, Anxiety, Depression, Schizophrenia Past Surgical History: no surgical history Patient History: Patient reports no known family medical history. Alcohol Use: None Drug Use: none Lives with: Family Lives In: Home Occupation: disabled Review of Systems ROS As stated above in the HPI, otherwise all systems are reviewed and negative. Physical Exam Vital Signs: Temperature: 97.7, Heart Rate: 95, Respiratory Rate: 20, BP: 179/106, Pulse Oximetry: 95, Weight: 90.000 Oxygen Flow Rate: 0 Physical Exam Reviewed vital signs and they are well within normal range. Const: Not in acute cardiopulmonary distress, patient is able to sit and walk without much pain. That is no deformity. Head: Atraumatic Eyes: Normal Conjunctiva ENT: Normal External Ears, Nose and Mouth. Moist mucous membranes Neck: Full range of motion. No meningismus Resp: Diminished breath sounds bilaterally Clear to auscultation bilaterally. Normal work of breathing Cardio: Regular rate and rhythm, no murmurs. Skin well perfused Abd: Soft, non-tender, non-distended. Normal bowel sounds. No rebound or guarding Skin: No petechiae or rashes. Warm and dry Back: No midline or flank tenderness Ext: No cyanosis, or edema Examination of the hip there is no shortening and no rotation and range of movement is good. Distal circulation sensation intact. Neuro: Awake and alert Psych: Normal Mood and Affect Progress Results/Orders Results/Orders Orders - MIKA GUTIÉRREZ MD Hip Unilateral 2 Views (11/27/24 08:56) Completed Orders - MIKA GUTIÉRREZ MD Acetaminophen 325mg Tablet (Tylenol Tabl (11/27/24 09:00) Ibuprofen Tablet (Motrin Tablet) (11/27/24 09:00) Hydrocodone/Apap 5/325mg Tab ([place] 5/32 (11/27/24 09:00) Acetaminophen 325mg Tablet (Tylenol Tabl (11/27/24 09:10) Hip Unilateral 2 Views (11/27/24 08:56) Vital Signs 11/27/24 11/27/24 11/27/24 08:37 09:13 11:20 Temp 97.7 97.7 Pulse 95 Resp 20 18 B/P (MAP) 179/106 Pulse Ox 95 O2 Flow Rate 0 Medical Decision Making Findings ER Course/Med. Decision Making REVIEW of RECORD(S): Previous medical records here and/or external medical records, such as that provided directly by the patient, by EMS and/or outside medical facilities, if available, were reviewed. COMORBIDITIES MDM During the physical examination, the findings suggestive of acute life- threatening condition such as JVD, tracheal deviation, acidotic breathing, noisy stridorous breath sounds, pulses paradoxus, muffled heart sounds, unequal breath sounds, abdominal rigidity and rebound tenderness, focal neurological deficits, cool clammy skin, severe hypotension, severe tachycardia or bradycardia are absent. Patient presenting for . Vital signs reviewed. Patient is hemodynamically stable and does not meet SIRS criteria. Patient appears nontoxic on exam. Examination of the hip is unremarkable and x-ray of the hip does not show any fracture but moderate osteoarthritis. TREATMENT/DISPOSITION: The patient's presentation is most consistent with moderate osteoarthritis of the right hip. Patient does not have identifiable emergent medical condition that warrants inpatient medical care at this time. The patient is deemed safe for discharge with outpatient follow up. Prior to discharge I independently reviewed the patients past medical history, clinical risk factors, comorbidities, and social determinants of health and diagnostic studies. The patient appears to be a safe discharge home with close outpatient PCP follow-up I had extensive discussion with patient regarding management, disposition and follow up. Potential symptom etiology was discussed, and shared decision making occurred. They will return immediately if symptoms worsen, do not improve, or they have any further concerns. Prior to discharge all questions were addressed. The patient is aware that the purpose of this visit was to screen for an acute medical emergency requiring emergent stabilization. Chronic and occult conditions, including malignancies, have not been ruled out. If patient is unable to arrange follow-up as stated in the discharge instructions and further discussed with the patient directly, or their symptoms worsen/become more concerning, they are to return to the ER for reassessment immediately. Prior to leaving the department, the patient has a plan for discharge, has decision making capacity, and acknowledges an understanding of the verbal and written discharge instructions. SOCIAL DETERMINANTS: Patient demonstrates no obvious challenges to following up as an outpatient although did consider whether patient had any barriers to access care including homelessness, Food insecurity, Mental health, Substance abuse, Disabilities, Limited access to medical care, Difficulty finding transport, Insurance issues, Refusal of care or testing due to cost concerns. MEDICAL SCREENING: I have discussed with the patient the non-definitive nature of the emergency screening exam, diagnosis and the possibility of a variety of conditions which may present in atypically benign fashion and stressed the importance of close follow-up for definitive diagnosis and treatment. We discussed signs and symptoms that should be watched for which might indicate a more serious or new condition that would benefit from emergency reevaluation and the patient has verbalized understanding to this and my other detailed discharge instructions and promises compliance. I have referred him back to his primary physician of course for a more detailed evaluation and more definitive diagnoses. DISCLAIMER: Inadvertent spelling and grammatical errors are likely due to EMR/dictation software use and do not reflect on the overall quality of patient care. Note that the electronic time recorded on this note does not necessarily reflect the actual time of the patient encounter. Differential Dx:Considerations: Include: Avascular necrosis, Arthritis, Arthritis-Septic, Bursitis, Contusion, Dislocation, Fracture-femur, Fracture- hip, Fracture-pelvis, Sprain Departure Disposition: 01 HOME / SELF CARE / HOMELESS Impression: Primary Impression: Osteoarthritis of right hip Condition: Stable Discharge Instructions: Arthritis, Nonspecific Additional Instructions: Thank you for coming to our Emergency Department today. Please take Tylenol extra strength 500 mg tablets one tablet with 200 mg ibuprofen one tablet every 6 hours as needed for pain. Hip the pain is not improved then you can take prescribed pain medicine. Please do follow with your primary care physician as instructed. Please ask your nurse or provider if you have questions about your care today and do not leave until all your questions have been answered. Please use any medications given as directed and follow-up with your doctor (or the doctor you were referred to) in the next 1-3 days. Your primary care doctor can help to coordinate outpatient specialty care and provide authorization for specialty referral as needed. If you do not have a primary care doctor you may follow up at a [facility]. You may also use motrin and tylenol as needed for fever and/or pain unless instructed otherwise by your provider or nurse. Indications for more urgent follow-up have been discussed, but you may return to the Emergency Department at ANY time for any worrisome or worsening symptoms. County Facilities: [facility] Facilities: [facility]: [facility] [place] Address:[address] [place] [address] [facility]: [place] Address:[address] [place] [address] [facility]: [facility] Address:[address] [place] [address] [facility] Address:[address] [place] [address] Registration Billing Pharmacy Referrals [facility] Address:[address] [place] [address] Referrals: NO PRIMARY CARE PROVIDER (PCP) Prescriptions Tramadol Hcl (Tramadol Hcl) 50 Mg Tablet 1 TAB PO TID PRN PRN for pain, #30 TAB Prov: MIKA GUTIÉRREZ MD 11/27/24 Signature Scribe Signature: x Attestation: MIKA Rider MD Nov 27, 2024 09:10
[2024-11-27 09:13] VITALS: RESP 18
[2024-11-27] MEDS: HYDROcodone/acetaminophen 5mg/325mg tablet PO ONE (09:13)
--- NOTE | 2024-11-27 09:44 | RADIOLOGY REPORT ---
right HIP RADIOGRAPH. CLINICAL INDICATION: Right hip pain TECHNIQUE: 3 views of the right hip were obtained. FINDINGS: There is no evidence of fracture, subluxation or dislocation. Moderate right hip osteoarthritis. The bony mineralization is normal.No radiopaque foreign body is identified. IMPRESSION: 1. No evidence of acute bony injury. Moderate right hip osteoarthritis
[2024-11-27] MEDS ORDERED: TRAM50TA2 PO (11:13)
[2024-11-27 11:20] VITALS: TEMP 97.7
== END 2024-11-27 11:25 | disposition home or self-care (01) ==
LOC: ER 08:35
DX: M16.11 Unilateral primary osteoarthritis, right hip (principal); E78.00 Pure hypercholesterolemia, unspecified; F20.9 Schizophrenia, unspecified; F31.9 Bipolar disorder, unspecified; I25.2 Old myocardial infarction; I50.9 Heart failure, unspecified; J44.9 Chronic obstructive pulmonary disease, unspecified; F41.9 Anxiety disorder, unspecified; Z86.73 Personal history of transient ischemic attack (TIA), and cerebral infarction without residual deficits; Z88.0 Allergy status to penicillin
CPT/HCPCS: 73502; 99284

== ENCOUNTER 2024-12-11 09:37 | Emergency (ER) | payer MEDICAID ==
[~2024-12-11] VITALS: Ht 157.5 cm; Wt 91.8 kg
[~2024-12-11 09:37] MED LIST changes: +TRAM50TA2 PO
[2024-12-11 09:38] VITALS: BP 144/84; PULSE 90; TEMP 97.6; O2SAT 98
--- NOTE | 2024-12-11 09:46 | Physician Documentation ---
History of Present Illness ~ Stated Complaint: HIP AND BACK PAIN Time Seen by MD: 09:51 Primary Medical Doctor: jose rafael WOOD 59-year-old female presents to the ED with a complaint of chronic back and bilateral hip pain. He is being seen at [place] walk-in by a provider there. Denies any recent history with the pain clinic. Pain has been worsened in the last two weeks. denies any recent injuries. Day of Onset: Dec 11, 2024 Medication Reconciliation Allergies: Coded Allergies: Penicillins (Unverified Allergy, Intermediate, 12/11/24) divalproex sodium (Verified Allergy, Mild, 12/11/24) simvastatin (Verified Adverse Reaction, Intermediate, BLURRED VISION AND SLEEPY., 12/11/24) Scheduled Albuterol Sulfate (Ventolin Hfa), 2 PUFFS INH Q4HPRN Pantoprazole Sodium (Pantoprazole Sodium), 1 TAB PO BID, (Reported) Prednisolone (Prednisolone), 1 TAB PO BID Scheduled PRN Tramadol Hcl (Tramadol Hcl), 1 TAB PO TID PRN PRN for pain Past Medical History Past Medical History: CVA/TIA/Stroke, Migraine, Peripheral Neuropathy, Congestive Heart Failure, High Cholesterol, Myocardial Infarction, Asthma, COPD, Pneumonia, Previously Intubated, GERD, Arthritis, Chronic Back Pain, Osteopenia, Anxiety, Depression, Schizophrenia Past Surgical History: no surgical history Patient History: Patient reports no known family medical history. Alcohol Use: None Drug Use: none Lives with: Family Lives In: Home Occupation: disabled Review of Systems All Other Systems at this time: Reviewed and Negative ROS As stated above in the HPI, otherwise all systems are reviewed and negative. Physical Exam Physical Exam Physical Exam General: Alert, no apparent distress. back: tender Neck: Full range of motion. Respiratory: Lungs clear, no respiratory distress. Chest: No accessory muscle use. Cardiovascular: Regular rate and rhythm, no murmurs. Gastrointestinal: Soft, nontender, nondistended. Bowels sounds present. Extremities: Normal range of motion, no deformity. Neurologic: Oriented x4. Psychiatric: Normal mood and affect. Skin: Normal color, warm and dry. No edema, no ecchymosis. Progress Results/Orders Results/Orders Vital Signs 12/11/24 12/11/24 09:38 10:14 Temp 97.6 Pulse 90 Resp 18 16 B/P (MAP) 144/84 Pulse Ox 98 O2 Flow Rate 0 Medical Decision Making Additional information obtaine: N/A Findings Consulted with the primary care provider who sees this patient regularly. She is regularly being evaluated in the outpatient setting she gets a referral to go to the pain clinic Differential Dx:Considerations: Musculoskeletal pain, Strain Departure Disposition: HOME / SELF CARE / HOMELESS Impression: Primary Impression: Back problem Additional Impression: Strain of lumbar region Condition: Stable Discharge Instructions: Chronic Back Pain Additional Instructions: Request a referral to go to the pain clinic for management of your chronic pain . Can obtain this from your primary care Referrals: NO PRIMARY CARE PROVIDER (PCP) Signature Scribe Signature: f Attestation: Scribed for Benton Jay Business Sales Consultant by Benton Chaney NP . 12/11/24 14:48 BENTON JAY NP Dec 11, 2024 09:46
[2024-12-11 10:14] VITALS: RESP 16
== END 2024-12-11 10:15 | disposition home or self-care (01) ==
LOC: ER 09:38
DX: S39.012A Strain of muscle, fascia and tendon of lower back, initial encounter (principal); E78.00 Pure hypercholesterolemia, unspecified; F20.9 Schizophrenia, unspecified; I50.9 Heart failure, unspecified; J44.9 Chronic obstructive pulmonary disease, unspecified; F41.9 Anxiety disorder, unspecified; F32.A Depression, unspecified; I25.2 Old myocardial infarction; M19.90 Unspecified osteoarthritis, unspecified site; Z86.73 Personal history of transient ischemic attack (TIA), and cerebral infarction without residual deficits; Z88.0 Allergy status to penicillin; X58.XXXA Exposure to other specified factors, initial encounter; Y93.89 Activity, other specified; Y92.89 Other specified places as the place of occurrence of the external cause; Y99.8 Other external cause status
CPT/HCPCS: 99282

== ENCOUNTER 2025-01-04 17:01 | Inpatient (IN) | payer MEDICAID ==
[~2025-01-04] VITALS: Ht 167.6 cm; Wt 89.0 kg
[~2025-01-04 17:01] MED LIST changes: -TRAM50TA2 PO
--- NOTE | 2025-01-04 17:25 | ELECTROCARDIOGRAPH REPORT ---
[facility] Test Date: 2025-01-04 Test Time: 17:17:19 Pat Name: DARSHAN ACOSTA Department: EMERGENCY ROOM Room: ORTHO 4024 Gender: F Chef'S Assistant: PM : 1965 Requested By: JUANJOSE ORTA Order Number: [id number] Reading MD: Dr. ADRYAN Christina Measurements Intervals [place] Rate: 113 P: 71 HI: 141 QRS: 72 QRSD: 86 T: 49 QT: 317 QTc: 435 Interpretive Statements Sinus tachycardia Probable left atrial enlargement RSR' in V1 or V2, right VCD or RVH Probable inferior infarct, old Probable anterolateral infarct, old Electronically Signed On 01-07-2025 19:22:[address] ADRYAN Christina Please click the below link to view image of tracing.
--- NOTE | 2025-01-04 17:42 | RADIOLOGY REPORT ---
EXAM: DI CHEST,TWO VIEWS CLINICAL HISTORY: SOB TECHNIQUE: Frontal and lateral views of the chest WID: COMPARISON: DI CHEST,SINGLE VIEW on DOS: 10/26/24, CT CTA CHEST PE on DOS: 09/27/24, DI CHEST,SINGLE VIEW on DOS: 09/27/24 FINDINGS: Lines and tubes: None Chest: The heart size and pulmonary vasculature is within normal limits. Calcified plaque projects over the aortic arch. No pleural effusion, pneumothorax, or consolidation. The osseous structures are grossly intact. Multilevel thoracic spondylosis. Exaggeration of the thoracic kyphosis. Bony demineralization. IMPRESSION: 1. No acute cardiopulmonary abnormality.
[2025-01-04 18:14] LABS: INFLUENZA TYPE A ANTIGEN RAPID NEGATIVE (Negative); INFLUENZA TYPE B ANTIGEN RAPID NEGATIVE (Negative)
[2025-01-04 18:22] LABS: MEAN PLATELET VOLUME 7.9 FL (7.4-10.4); RED CELL DISTRIBUTION WIDTH 16.3 % (11.5-14.5)
[2025-01-04] MEDS: ipratropium/albuterol 3ml nebule NEB ONE (18:27)
[2025-01-04 18:29] VITALS: PULSE 97; RESP 20; O2SAT 95
[2025-01-04 18:36] VITALS: PULSE 98; RESP 20; O2SAT 95
[2025-01-04 18:42] LABS: CREATININE 0.65 MG/DL (0.40-0.90); TOTAL CARBON DIOXIDE 30.2 MMOL/L (24-32)
[2025-01-04 18:43] LABS: PRO BRAIN NATRIURETIC PEPTIDE 280 PG/ML (0-125); eCRCL 89 ML/MIN; eGFR > 90 ML/MIN
--- NOTE | 2025-01-04 19:12 | Physician Documentation ---
History of Present Illness ~ Chief Complaint: Shortness of Breath Stated Complaint: SOB Time Seen by MD: 17:43 OK to notify your PCP?: Yes Primary Medical Doctor: jose rafael Source: patient Mode of Arrival: EMS Exam Limitations: no limitations HPI 59-year-old female with COPD here for worsening of her chronic shortness of breath which she states started yesterday. She reports her cough is more productive and her inhalers are not helping her. She was given a nebulizer treatment in route which helped her breathing temporarily but she states she has now returned back to what she was pre nebulizer treatment. She also states body aches and feeling chilled but has not taken her temperature. She denies sore throat, sinus pain, cp. Not on oxygen at home but arrives on oxygen from EMS. Medication Reconciliation Allergies: Coded Allergies: Penicillins (Unverified Allergy, Intermediate, 12/11/24) divalproex sodium (Verified Allergy, Mild, 12/11/24) simvastatin (Verified Adverse Reaction, Intermediate, BLURRED VISION AND SLEEPY., 12/11/24) Scheduled Albuterol Sulfate (Ventolin Hfa), 2 PUFFS INH Q4HPRN Pantoprazole Sodium (Pantoprazole Sodium), 1 TAB PO BID, (Reported) Prednisolone (Prednisolone), 1 TAB PO BID Discontinued Medications Tramadol Hcl (Tramadol Hcl), 1 TAB PO TID PRN PRN for pain Discontinued Reason: Auto Discontinued Past Medical History Past Medical History: CVA/TIA/Stroke, Migraine, Peripheral Neuropathy, Congestive Heart Failure, High Cholesterol, Myocardial Infarction, Asthma, COPD, Pneumonia, Previously Intubated, GERD, Arthritis, Chronic Back Pain, Osteopenia, Anxiety, Depression, Schizophrenia Past Surgical History: no surgical history Patient History: Patient reports no known family medical history. Alcohol Use: None Drug Use: none Lives with: Family Lives In: Home Occupation: disabled Review of Systems All Other Systems at this time: Reviewed and Negative Physical Exam Vital Signs: RN Vital Signs have been reviewed: Yes, Source: Oral, Heart Rate: 107, Respiratory Rate: 24, BP: 168/99, Pulse Oximetry: 96, Weight: 89.000 Oxygen Flow Rate: 4.0 Physical Exam GENERAL: Alert, MILD RESPIRATORY DISTRESS, DIFFICULTY SPEAKING IN COMPLETE SENTENCES. HEENT: NCAT, EOMI, PERRL, normal oropharynx, moist oral mucosa. NECK: Supple, trachea midline. CARDIAC: Regular rate and rhythm, no murmurs, rubs, or gallops. Equal distal pulses. No lower extremity edema, cap refill less than 2 seconds. RESPIRATORY: AUDIBLE WHEEZING WITHOUT EVEN USING STETHOSCOPE, WHEEZING THROUGHOUT WITH RHONCHI WITH INCREASED RESPIRATORY RATE. GASTROINTESTINAL: Non distended, soft, nontender, No guarding or rebound. MUSCULOSKELETAL: Normal range of motion, nontender, no swelling. Normal gait. NEUROLOGICAL: Awake, alert, and oriented x 3. SKIN: Warm/dry, no pallor, no rash. PSYCH: Alert and appropriate. Affect congruent with mood. Speech is clear. Good eye contact. Progress Progress Note EXAM: DI CHEST,TWO VIEWS CLINICAL HISTORY: SOB TECHNIQUE: Frontal and lateral views of the chest WID: COMPARISON: DI CHEST,SINGLE VIEW on DOS: 10/26/24, CT CTA CHEST PE on DOS: 09/27/24, DI CHEST,SINGLE VIEW on DOS: 09/27/24 FINDINGS: Lines and tubes: None Chest: The heart size and pulmonary vasculature is within normal limits. Calcified plaque projects over the aortic arch. No pleural effusion, pneumothorax, or consolidation. The osseous structures are grossly intact. Multilevel thoracic spondylosis. Exaggeration of the thoracic kyphosis. Bony demineralization. IMPRESSION: 1. No acute cardiopulmonary abnormality. Results/Orders Results/Orders Orders - DAPHNEY SALGADO Svn Treatment (01/04/25 17:51) Covid19 Binax Poc Result Entry (01/04/25 17:51) Completed Orders - DAPHNEY SALGADO Ipratropium/Albuterol Nebule (Ipratrop/A (01/04/25 17:55) Influenza Type A&B Rapid Test (01/04/25 17:49) Methylprednisolone Sod Succ (Solumedrol (01/04/25 18:00) Medications Received in ER Medications (Trade) Dose Ordered Sig/[place] Route PRN Reason Start Time Stop Time Status Last Admin Dose Admin (ipratrop/ albuterol 0.5-3(2.5) MG/3ml nebule) 3 ml ONCE ONCE NEB 01/04/25 17:55 01/04/25 17:56 DC 01/04/25 18:27 3 ML Vital Signs 01/04/25 01/04/25 01/04/25 01/04/25 17:14 17:27 18:29 18:36 Pulse 116 97 98 Resp 32 36 20 20 B/P (MAP) 177/87 Pulse Ox 98 95 95 O2 Delivery Nasal Cannula* Nasal Cannula* O2 Flow Rate 4 4 FiO2 36 36 01/04/25 18:52 Pulse 107 Resp 24 B/P (MAP) 168/99 (122) Pulse Ox 96 O2 Flow Rate 4.0 Laboratory Tests Test 01/04/25 17:49 01/04/25 18:02 Influenza Type A Antigen Negative Influenza Type B Antigen Negative SARS-CoV-2 Antigen (Rapid) Negative White Blood Count 11.1 H Red Blood Count 4.53 Hemoglobin 12.6 Hematocrit 39.6 Mean Corpuscular Volume 87.6 Mean Corpuscular Hemoglobin 27.8 Mean Corpuscular Hemoglobin Concent 31.7 L Red Cell Distribution Width 16.3 H Platelet Count 254 Mean Platelet Volume 7.9 Neutrophils (%) (Auto) 76.4 H Lymphocytes (%) (Auto) 14.2 L Monocytes (%) (Auto) 7.6 Eosinophils (%) (Auto) 1.4 Basophils (%) (Auto) 0.4 Neutrophils # (Auto) 8.5 H Lymphocytes # (Auto) 1.6 Monocytes # (Auto) 0.8 Eosinophils # (Auto) 0.2 Basophils # (Auto) 0.0 CBC Comment Sodium Level 136 Potassium Level 4.0 Chloride Level 100 Carbon Dioxide Level 30.2 Anion Gap 6 L Blood Urea Nitrogen 18 Creatinine 0.65 Estimated GFR/1.73 m2 > 90 BUN/Creatinine Ratio 27.7 H Glucose Level 124 H Lactic Acid Level < 0.3 L Calcium Level 8.1 L Pro-B-Type Natriuretic Peptide 280 H Albumin 3.4 Chemistry Comments Medical Decision Making Additional information obtaine: old records Findings PREVIOUS VISITS Heart Score: 0 Differential Dx:Considerations: Include: anxiety, asthma, bronchitis, cardiogenic shock, CHF, COPD, dysrhythmia, hypertension, accelerated, hype rtension, essential, hypertension, malignant, hyperventilation, hyponatremia, myocardial infarction, panic attack, pneumonia, pneumonitis, pneumothorax, PSVT, pulmonary embolism, respiratory distress, respiratory failure, sinusitis, upper resp. infection Departure Time of Disposition: 19:08 Admitted to Inpatient Unit: to hospitalist Impression: Primary Impression: Acute exacerbation of chronic obstructive airways disease Additional Impression: Hypoxia Condition: Fair Referrals: NO PRIMARY CARE PROVIDER (PCP) Education Educated: Patient Educated regarding: diagnosis, treatment, need for follow up Signature Scribe Signature: x Attestation: DAPHNEY Eastman Jan 04, 2025 19:12
[2025-01-04] MEDS ORDERED: magnesium Cl slow-release 64mg tablet PO PRN (19:50)
[2025-01-04] MEDS ORDERED: magnesium sulf-water 4G/100mL 100 ML IV PRN (19:50)
[2025-01-04] MEDS ORDERED: potassium Cl 40MEQ/1/2NS 520ml 520 ML IV PRN (19:50)
[2025-01-04] MEDS ORDERED: ondansetron/PF 4mg/2ml inj IV PRN (19:50)
[2025-01-04] MEDS ORDERED: morphine 4 MG/ML inj SYRINge IV PRN (19:50)
[2025-01-04] MEDS ORDERED: potassium Cl 20 mEq SR tablet PO PRN ×2 (19:50)
[2025-01-04] MEDS ORDERED: magnesium sulf-water 2g/50mL 50 ML IV PRN (19:50)
[2025-01-04] MEDS ORDERED: ipratropium/albuterol 3ml nebule NEB PRN (19:55)
[2025-01-04] MEDS: K and/or MAG REPLACEMENT MC SCH (20:00)
--- NOTE | 2025-01-04 20:13 | HISTORY AND PHYSICAL-Residence ---
History & Physical Providers to CC Resident Creating Document: PANCHITO TERAN RES ~ History of Present Illness Primary Medical Doctor: jose rafael Reason for Admit\\Complaint: shortness of breath and back pain History of Present Illness The patient is a 59-year old female with h/o COPD and active cigarette use since age 15 who presents with 4 days of progressively worsening dyspenea, primarily exertional. She reports increased cough with greater sputum volume, described as yellow, along with chills bu tno documented fever. She denies orthopnea, PND or chest pain. She is no ton home oxygen and uses two inhalers regularly She was previuosly hosppitlaized for a COPD exacerbation in September 2024. 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 Allergies: Coded Allergies: Penicillins (Unverified Allergy, Intermediate, 12/11/24) divalproex sodium (Verified Allergy, Mild, 12/11/24) simvastatin (Verified Adverse Reaction, Intermediate, BLURRED VISION AND SLEEPY., 12/11/24) Home Medications Home Medications Active Prednisolone 5 Mg Tablet 1 Tab PO BID 3 Days Ventolin Hfa (Albuterol Sulfate) 90 Mcg Hfa.aer.ad 2 Puffs INH Q4HPRN Reported Pantoprazole Sodium 40 Mg Tablet.dr 1 Tab PO BID Past Medical History Past Medical History Migrains, COPD, Bipolar disorder, chronic back pain Past Surgical History Surgical History Comment minor orthopedic surgeries Family History Family History: Patient reports no known family medical history. Past Social History Social History Comment Lives "with people" in an apartment. Smokes 1 pack/day for >40 years. Denies alcohol or recreational drugs. Smoking: Cigarettes, Greater than 1 pack/day Alcohol Use: None Drug Use: None Lives with: Family Lives In: Home Occupation: disabled ROS All Other Systems: Reviewed and Negative ROS As stated in HPI. Exam Vitals: Vital Signs Date Time Temp Pulse Resp B/P (MAP) Pulse Ox O2 Delivery O2 Flow Rate FiO2 01/04/25 19:14 99 23 156/87 (110) 97 3.0 01/04/25 18:36 Nasal Cannula* 36 General: Awake and Alert,c/o lower back pain HEENT: Conjunctiva pink, Sclera clear, Mucus Membranes dry . Neck: Supple without masses and tenderness. Resp: Diffuse b/l expiratory wheezes Heart: tachycardia Abdomen: Soft and non tender no organomegaly Extremities: No cyanosis,clubbing or edema. Skin: Warm and Dry. Diagnostic Data Last Recorded Lab Results: 01/04/25180101/04/251801 Advance Care Planning Advanced Care plannin - 30 Minutes Additional Plan 1. Acute hypoxemic respiratory failure New oxygen requirement at 4 L/minute via nasal cannula; patient is not on home oxygen. Hypoxemia likely secondary to acute COPD exacerbation Plan: Maintain supplemental oxygen to keep SpO2 89-90% Assess for need to escalate support (HFNC or BiPAP). if increased work of breathing, persistent hypoxemia, or hypercapnia develops Obtain ABGs if any change in mentation or worsening respiratory status 2. Acute COPD exacerbation Worsening dyspnea, increased yellow sputum, hyperinflated lungs and CXR. WBC modestly elevated. COVID and influenza a/B negative. Bicarbonate 30.2 suggest chronic CO2 retention. Normal lactate and creatinine. Prior proBNP 369 (September 2024) lowers concern for acute CHF Plan: DuoNeb nebulization; every 4 hour as scheduled, and every 2 hour as needed Solu-Medrol: Received 125 mg IV in ER, continue 60 mg IV twice daily Antibiotic therapy: Penicillin allergy, Levaquin 500 mg IV daily for Gram- negative and atypical infections Pulmonary hygiene and incentive spirometry Monitor vitals, fever, and oxygen requirements 3. Chronic hypercapnia Elevated bicarbonate, consistent with chronic CO2 retention and COPD Avoid over oxygenation; Maintain O2 saturation b/w 89-90% ABG if further CO2 retention suspected clinically 4. Tobacco Use Disorders Ongoing smoking contributing to exacerbation Nicotine replacement therapy initiated Provided cessation counseling; 10 minutes 5. Chronic back pain Reports back pain Imaging studies i.e. is CT scan of lumbar spine was negative during last admission. No red flags; no focal neurological deficits Morphine, and [place] as needed 6. Bipolar Disorder, Anxiety/Depression Continue home medications, med rec pending 7. Migraine Headaches Resume home medications, pending med rec 8. Class I Obesity, BMI 31.7 Ordered HbA1C, and Lipid Panel, please follow Nutrition Consult 9. More CVA without residual deficits No acute neurologic issues Code status: Full code DVT prophylaxis: Keshia Teran, PGY-3 Resident Date of Service: Jan 04, 2025 Billing Provider: LAVELLE HER MD Assessment/Plan Assessment agree with the plan by resident IM 3 PANCHITO TERAN, RES Jan 04, 2025 20:13 LAVELLE HER MD Jan 05, 2025 04:09
[2025-01-04] MEDS: enoxaparin 40mg/0.4ml syringe SUBCUT SCH (21:06)
[2025-01-04] MEDS: nicotine 14mg patch - 24hr TD ONE (21:06)
[2025-01-04] MEDS: levoFLOXACIN-Levaquin 500mg/D5 100 ML IV SCH (21:06)
[2025-01-04 22:00] VITALS: BP 175/87; PULSE 93; RESP 20; TEMP 98.4; O2SAT 93
[2025-01-04] MEDS: ipratropium/albuterol 3ml nebule NEB SCH (22:13)
[2025-01-04 22:15] VITALS: PULSE 103; RESP 26; O2SAT 93
[2025-01-04 22:21] VITALS: PULSE 103; RESP 26
[2025-01-05] VITALS (19 sets, daily range): BP systolic 120–153; BP diastolic 61–97; PULSE 82–98; RESP 14–24; TEMP 97.3–98.8; O2SAT 90–97
[2025-01-05] MEDS: ipratropium/albuterol 3ml nebule NEB PRN (00:30)
[2025-01-05] MEDS: HYDROcodone/acetaminophen 10/325mg tab PO PRN (00:57)
[2025-01-05 06:01] LABS: MEAN PLATELET VOLUME 8.3 FL (7.4-10.4); RED CELL DISTRIBUTION WIDTH 15.9 % (11.5-14.5)
[2025-01-05] MEDS ORDERED: FLU VACC TS2025-26(6MOS UP)/PF (FLULAVAL) 45 MCG/0.5 ML SYRINGE IMVAC ONE (06:15)
[2025-01-05 06:27] LABS: CHOL/HDL RATIO 2.4 (0.00-4.99); CREATININE 0.46 MG/DL (0.40-0.90); LDL CHOLESTEROL 100 MG/DL (50-100); TOTAL CARBON DIOXIDE 32.1 MMOL/L (24-32); eCRCL 126 ML/MIN; eGFR > 90 ML/MIN
--- NOTE | 2025-01-05 10:10 | PROGRESS NOTE ---
Daily Progress Note Providers to CC Feels better today less shortness of breath less cough ~ Central Line/PICC still needed: No Gill-Non Protocol Gill Indications Met/Not Met: F/C Indications Not Met Antibiotic Timeout Antibiotic Ordered?: Yes MRSA Education MRSA Education Provided to pt: Yes Subjective As above Objective Vital Signs Date Time Temp Pulse Resp B/P (MAP) Pulse Ox O2 Delivery O2 Flow Rate FiO2 01/05/25 07:03 89 20 Nasal Cannula 2.0 01/05/25 06:54 90 28 01/04/25 22:00 98.4 175/87 (116) Vital signs, stable ,afebrile. Pulse Oximetry reflects adequate oxygenation. L oxygen nasal cannula General: well developed, well nourished. Awake , alert, and oriented x4, resting comfortably in the bed, in no acute distress . Skin: Warm, dry, no pallor, no rash or petechiae. HEENT: Atraumatic, normocephalic, EOMI, anicteric sclera B; pink conjunctiva; PERRLA, normal oropharynx, moist oral and nasal mucosa. Tympanic membrane , nose , throat clear. Neck: Trachea midline. Supple, full range of motion, no JVD, bruit , hepatojugular reflex , lymphadenopathy or masses, or other lesions Cardiac: Regular rhythm, regular rate no murmurs, rubs, or gallops. Normal S1 and S2, no S3 noticed. PMI is normal. Respiratory: Equal breath sounds bilaterally, associated with bilateral wheezing, no tachypnea; lungs clear to auscultation bilaterally, no ,rub or rales, or crackles. Chest wall is symmetric and without deformity. No signs of trauma. Chest wall is nontender. No signs of respiratory distress. Resonance is normal upon percussion bilaterally. Gastrointestinal: Abdomen symmetric, non-distended, soft, non-tender, normal bowel sounds x4 quadrant, normoactive, no hepatosplenomegaly , no masses , no bruit, no flank pain bilaterally. No voluntary guarding, rebound, or rigidity. No tenderness to percussion. No pulsatile masses. Equal femoral pulses. No Obando's sign or McBurney point tenderness. Back; no CVA tenderness bilaterally, no deformities. Neck and back are without deformity as well. No tenderness noted on palpation of the spinous processes. Spinous processes are midline. Cervical, thoracic, and lumbar paraspinal muscles are not tender and are without spasm. Musculoskeletal: Extremities, normal range of motion, non-tender, muscle strength 5/5 x 4. Negative Homans signs bilaterally on lower extremity. Distal pulses full symmetrical, no clubbing, cyanosis , edema. Neurological: Speech is clear, alert, and oriented x 4. No motor or sensory deficit, deep tendon reflexes normal, cerebellar intact. Cranial nerves II-XII intact. Psych: Alert and or appropriate, normal affect. Vascular: Good distal pulses, which are equal x4; capillary refill less than 2 seconds. Lymphatic, no lymphadenopathy. Result Diagram: 01/05/2545601/05/25456 Problem\Assessment\Plan Assessment/Plan 1. Acute hypoxemic respiratory failure New oxygen requirement at 4 L/minute via nasal cannula; patient is not on home oxygen. Hypoxemia likely secondary to acute COPD exacerbation Plan: Maintain supplemental oxygen to keep SpO2 89-90% Assess for need to escalate support (HFNC or BiPAP). if increased work of breathing, persistent hypoxemia, or hypercapnia develops Obtain ABGs if any change in mentation or worsening respiratory status 2. Acute COPD exacerbation Worsening dyspnea, increased yellow sputum, hyperinflated lungs and CXR. WBC modestly elevated. COVID and influenza a/B negative. Bicarbonate 30.2 suggest chronic CO2 retention. Normal lactate and creatinine. Prior proBNP 369 (September 2024) lowers concern for acute CHF Plan: DuoNeb nebulization; every 4 hour as scheduled, and every 2 hour as needed Solu-Medrol: Received 125 mg IV in ER, continue 60 mg IV twice daily Antibiotic therapy: Penicillin allergy, Levaquin 500 mg IV daily for Gram- negative and atypical infections Pulmonary hygiene and incentive spirometry Monitor vitals, fever, and oxygen requirements 3. Chronic hypercapnia Elevated bicarbonate, consistent with chronic CO2 retention and COPD Avoid over oxygenation; Maintain O2 saturation b/w 89-90% ABG if further CO2 retention suspected clinically 4. Tobacco Use Disorders Ongoing smoking contributing to exacerbation Nicotine replacement therapy initiated Provided cessation counseling; 10 minutes 5. Chronic back pain Reports back pain Imaging studies i.e. is CT scan of lumbar spine was negative during last admission. No red flags; no focal neurological deficits Morphine, and [place] as needed 6. Bipolar Disorder, Anxiety/Depression Continue home medications, med rec pending 7. Migraine Headaches Resume home medications, pending med rec 8. Class I Obesity, BMI 31.7 Ordered HbA1C, and Lipid Panel, please follow Nutrition Consult 9. More CVA without residual deficits No acute neurologic issues Code status: Full code DVT prophylaxis: Lovenox Sepsis Screening Reassessment Date: Jan 05, 2025 Date of Service: Jan 05, 2025 Billing Provider: MIKAYLA WILCOX MD Common Visit Codes: [id number] INP/OBS CARE(HIGH) MIKAYLA WILCOX MD Jan 05, 2025 10:10
[2025-01-05] MEDS ORDERED: CETI10TA14 PO (10:29)
[2025-01-05] MEDS ORDERED: EZET10TA80 PO (10:29)
[2025-01-05] MEDS ORDERED: FLUT1BLS16 INH (10:29)
[2025-01-05] MEDS ORDERED: ERGO500093 PO (10:29)
[2025-01-05] MEDS ORDERED: RISP-31 PO (10:29)
[2025-01-05] MEDS ORDERED: ARIP15TA68 PO (10:29)
[2025-01-05] MEDS ORDERED: HYDR50TA65 PO (10:29)
[2025-01-05] MEDS ORDERED: non-formulary drug (Albuterol Sulfate (Ventolin Hfa) 2 PUFFS) INH SCH (11:10)
--- NOTE | 2025-01-05 11:15 | ELECTROCARDIOGRAPH REPORT ---
[facility] Test Date: 2025-01-05 Test Time: 11:13:41 Pat Name: DARSHAN ACOSTA Department: [facility] 4S Patient ID: [facility]-[id number] Room: [place] [id number] B Gender: F Global Marketing Coordinator: : 1965 Requested By: MIKAYLA WILCOX Order Number: [id number] Reading MD: Dr. ADRYAN Christina Measurements Intervals [place] Rate: 86 P: 70 UT: 145 QRS: 72 QRSD: 90 T: 64 QT: 356 QTc: 426 Interpretive Statements Sinus rhythm Inferior infarct, old Electronically Signed On 01-05-2025 16:43:[address] ADRYAN Christina Please click the below link to view image of tracing.
[2025-01-05 11:38] LABS: ETHANOL < 10 MG/DL (<10)
[2025-01-05 14:25] LABS: URINE AMPHETAMINE SCREEN NEGATIVE (Neg); URINE BARBITUATE SCREEN NEGATIVE (Neg); URINE BENZODIAZEPINES SCREEN NEGATIVE (Neg); URINE CANNABINOID SCREEN NEGATIVE (Neg); URINE COCAINE SCREEN NEGATIVE (Neg); URINE METHADONE SCREEN NEGATIVE (Neg); URINE OPIATE SCREEN POSITIVE (Neg); URINE PHENCYCLIDINE SCREEN NEGATIVE (Neg)
[2025-01-05] MEDS: pantoprazole 40mg Tablet.DR PO SCH (19:25)
[2025-01-06] VITALS (16 sets, daily range): BP systolic 133–158; BP diastolic 69–94; PULSE 74–97; RESP 15–22; TEMP 97.5–98.5; O2SAT 88–97
[2025-01-06 04:57] LABS: MEAN PLATELET VOLUME 7.9 FL (7.4-10.4); RED CELL DISTRIBUTION WIDTH 16.0 % (11.5-14.5)
[2025-01-06 05:07] LABS: CREATININE 0.60 MG/DL (0.40-0.90); TOTAL CARBON DIOXIDE 36.0 MMOL/L (24-32); eCRCL 97 ML/MIN; eGFR > 90 ML/MIN
[2025-01-06] MEDS: Fluticasone/Umeclidin/Vilanter (Trelegy Ellipta 200-62.5-25) INHALER IH SCH (08:00)
[2025-01-06] MEDS: budesonide 0.5mg/2ml UD nebule IH SCH (08:09)
--- NOTE | 2025-01-06 15:32 | PROGRESS NOTE ---
Daily Progress Note Providers to CC Feels better today, less shortness of breath less wheezing ~ Central Line/PICC still needed: No Gill-Non Protocol Gill Indications Met/Not Met: F/C Indications Not Met Antibiotic Timeout Antibiotic Ordered?: Yes MRSA Education MRSA Education Provided to pt: Yes Subjective As above Objective Vital Signs Date Time Temp Pulse Resp B/P (MAP) Pulse Ox O2 Delivery O2 Flow Rate FiO2 01/06/25 13:09 17 01/06/25 12:53 81 Nasal Cannula 1.0 01/06/25 12:46 91 24 01/06/25 10:00 98.5 158/94 (115) Vital signs, stable ,afebrile. Pulse Oximetry reflects adequate oxygenation. 1 L oxygen nasal cannula present General: well developed, well nourished. Awake , alert, and oriented x4, resting comfortably in the bed, in no acute distress . Skin: Warm, dry, no pallor, no rash or petechiae. HEENT: Atraumatic, normocephalic, EOMI, anicteric sclera B; pink conjunctiva; PERRLA, normal oropharynx, moist oral and nasal mucosa. Tympanic membrane , nose , throat clear. Neck: Trachea midline. Supple, full range of motion, no JVD, bruit , hepatojugular reflex , lymphadenopathy or masses, or other lesions Cardiac: Regular rhythm, regular rate no murmurs, rubs, or gallops. Normal S1 and S2, no S3 noticed. PMI is normal. Respiratory: Equal breath sounds bilaterally, no tachypnea; lungs clear to auscultation bilaterally, scattered bilateral wheezing present, no rub or rales, or crackles. Chest wall is symmetric and without deformity. No signs of trauma. Chest wall is nontender. No signs of respiratory distress. Resonance is normal upon percussion bilaterally. Gastrointestinal: Abdomen symmetric, non-distended, soft, non-tender, normal bowel sounds x4 quadrant, normoactive, no hepatosplenomegaly , no masses , no bruit, no flank pain bilaterally. No voluntary guarding, rebound, or rigidity. No tenderness to percussion. No pulsatile masses. Equal femoral pulses. No Obando's sign or McBurney point tenderness. Back; no CVA tenderness bilaterally, no deformities. Neck and back are without deformity as well. No tenderness noted on palpation of the spinous processes. Spinous processes are midline. Cervical, thoracic, and lumbar paraspinal muscles are not tender and are without spasm. Musculoskeletal: Extremities, normal range of motion, non-tender, muscle strength 5/5 x 4. Negative Homans signs bilaterally on lower extremity. Distal pulses full symmetrical, no clubbing, cyanosis , edema. Neurological: Speech is clear, alert, and oriented x 4. No motor or sensory deficit, deep tendon reflexes normal, cerebellar intact. Cranial nerves II-XII intact. Psych: Alert and or appropriate, normal affect. Vascular: Good distal pulses, which are equal x4; capillary refill less than 2 seconds. Lymphatic, no lymphadenopathy. Result Diagram: 01/06/2542201/06/25422 Problem\Assessment\Plan Assessment/Plan 1. Acute hypoxemic respiratory failure New oxygen requirement at 4 L/minute via nasal cannula; patient is not on home oxygen. Hypoxemia likely secondary to acute COPD exacerbation Plan: Maintain supplemental oxygen to keep SpO2 89-90% Assess for need to escalate support (HFNC or BiPAP). if increased work of breathing, persistent hypoxemia, or hypercapnia develops Obtain ABGs if any change in mentation or worsening respiratory status 2. Acute COPD exacerbation Worsening dyspnea, increased yellow sputum, hyperinflated lungs and CXR. WBC modestly elevated. COVID and influenza a/B negative. Bicarbonate 30.2 suggest chronic CO2 retention. Normal lactate and creatinine. Prior proBNP 369 (September 2024) lowers concern for acute CHF Plan: DuoNeb nebulization; every 4 hour as scheduled, and every 2 hour as needed Solu-Medrol: Received 125 mg IV in ER, continue 60 mg IV twice daily Antibiotic therapy: Penicillin allergy, Levaquin 500 mg IV daily for Gram- negative and atypical infections Pulmonary hygiene and incentive spirometry Monitor vitals, fever, and oxygen requirements 3. Chronic hypercapnia Elevated bicarbonate, consistent with chronic CO2 retention and COPD Avoid over oxygenation; Maintain O2 saturation b/w 89-90% ABG if further CO2 retention suspected clinically 4. Tobacco Use Disorders Ongoing smoking contributing to exacerbation Nicotine replacement therapy initiated Provided cessation counseling; 10 minutes 5. Chronic back pain Reports back pain Imaging studies i.e. is CT scan of lumbar spine was negative during last admission. No red flags; no focal neurological deficits Morphine, and [place] as needed 6. Bipolar Disorder, Anxiety/Depression Continue home medications, med rec pending 7. Migraine Headaches Resume home medications, pending med rec 8. Class I Obesity, BMI 31.7 Ordered HbA1C, and Lipid Panel, please follow Nutrition Consult 9. More CVA without residual deficits No acute neurologic issues Code status: Full code DVT prophylaxis: Lovenox Date of Service: Jan 06, 2025 Billing Provider: MIKAYLA WILCOX MD Common Visit Codes: [id number] INP/OBS CARE(HIGH) MIKAYLA WILCOX MD Jan 06, 2025 15:32
[2025-01-07] VITALS (8 sets, daily range): BP systolic 143–169; BP diastolic 83–92; PULSE 67–90; RESP 16–20; TEMP 97.3–97.4; O2SAT 91–96
[2025-01-07 06:09] LABS: MEAN PLATELET VOLUME 8.2 FL (7.4-10.4); RED CELL DISTRIBUTION WIDTH 16.3 % (11.5-14.5)
[2025-01-07 06:21] LABS: CREATININE 0.51 MG/DL (0.40-0.90); TOTAL CARBON DIOXIDE 37.0 MMOL/L (24-32); eCRCL 114 ML/MIN; eGFR > 90 ML/MIN
[2025-01-07] MEDS ORDERED: AZIT500T PO (12:05)
--- NOTE | 2025-01-07 18:44 | DISCHARGE SUMMARY ---
Discharge Summary Providers to CC Today asking to be discharged home for family emergency reasons ~ Discharge Summary Assessment Migrains, headaches COPD, in exacerbation Acute hypoxic respiratory failure Chronic tobacco use disorder Bipolar disorder, chronic back pain History of CVA Admission Diagnosis: COPD exacerbation Admission Diagnosis Comment: Migrains, headaches COPD, in exacerbation Acute hypoxic respiratory failure Chronic tobacco use disorder Bipolar disorder, chronic back pain History of CVA Hospital Course DATE OF ADMISSION: January 04, 2025 DATE OF DISCHARGE: January 06, 2025 Discharge Diagnosis\Comment: Migrains, headaches COPD, in exacerbation Acute hypoxic respiratory failure Chronic tobacco use disorder Bipolar disorder, chronic back pain History of CVA Operations\Procedures: Non Consultants: Non Complications: Non Condition on DC: Stable Discharge Summary: The patient is a 59-year old female with h/o COPD and active cigarette use since age 15 who presents with 4 days of progressively worsening dyspenea, primarily exertional. She reports increased cough with greater sputum volume, described as yellow, along with chills bu tno documented fever. She denies orthopnea, PND or chest pain. She is no ton home oxygen and uses two inhalers regularly She was previuosly hosppitlaized for a COPD exacerbation in September 2024. 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 Admission patient was extensively evaluated treated he will condition improved today she asking to be discharged for family emergency reasons, I explained to the patient the need to further continue inpatient treatment and evaluation, explained the risk of severe complications and , patient elected to be discharged. Medication reconciled, she will be discharged in stable condition, follow-up PCP in the morning Today on physical exam Vital signs, stable ,afebrile. Pulse Oximetry reflects adequate oxygenation. General: well developed, well nourished. Awake , alert, and oriented x4, resting comfortably in the bed, in no acute distress . Skin: Warm, dry, no pallor, no rash or petechiae. HEENT: Atraumatic, normocephalic, EOMI, anicteric sclera B; pink conjunctiva; PERRLA, normal oropharynx, moist oral and nasal mucosa. Tympanic membrane , nose , throat clear. Neck: Trachea midline. Supple, full range of motion, no JVD, bruit , hepatojugular reflex , lymphadenopathy or masses, or other lesions Cardiac: Regular rhythm, regular rate no murmurs, rubs, or gallops. Normal S1 and S2, no S3 noticed. PMI is normal. Respiratory: Equal breath sounds bilaterally, no tachypnea; lungs clear to auscultation bilaterally, no wheezing ,rub or rales, or crackles. Chest wall is symmetric and without deformity. No signs of trauma. Chest wall is nontender. No signs of respiratory distress. Resonance is normal upon percussion bilaterally. Gastrointestinal: Abdomen symmetric, non-distended, soft, non-tender, normal bowel sounds x4 quadrant, normoactive, no hepatosplenomegaly , no masses , no bruit, no flank pain bilaterally. No voluntary guarding, rebound, or rigidity. No tenderness to percussion. No pulsatile masses. Equal femoral pulses. No Obando's sign or McBurney point tenderness. Back; no CVA tenderness bilaterally, no deformities. Neck and back are without deformity as well. No tenderness noted on palpation of the spinous processes. Spinous processes are midline. Cervical, thoracic, and lumbar paraspinal muscles are not tender and are without spasm. Musculoskeletal: Extremities, normal range of motion, non-tender, muscle strength 5/5 x 4. Negative Homans signs bilaterally on lower extremity. Distal pulses full symmetrical, no clubbing, cyanosis , edema. Neurological: Speech is clear, alert, and oriented x 4. No motor or sensory deficit, deep tendon reflexes normal, cerebellar intact. Cranial nerves II-XII intact. Psych: Alert and or appropriate, normal affect. Vascular: Good distal pulses, which are equal x4; capillary refill less than 2 seconds. Lymphatic, no lymphadenopathy. *Problems/Diagnosis: (1) Tobacco use Status: Acute (2) Bipolar affective disorder Status: Acute (3) COPD exacerbation Status: Acute Total Time Spent on D/C: > 30 Minutes Date of Service: Jan 07, 2025 Billing Provider: MIKAYLA WILCOX MD Common Visit Codes: 62239-[id number]/OBS DISCH DAY >30min MIKAYLA WICLOX MD Jan 07, 2025 18:44
== END 2025-01-07 13:45 | disposition home or self-care (01) | DRG 140 ==
LOC: ER 17:01 → ED HOLD 19:29 → ORTHO 4S 22:00
PROVIDERS: ADMIT Internal Medicine Critical Care Medicine; ATTEND Family Medicine
DX: J44.1 Chronic obstructive pulmonary disease with (acute) exacerbation (principal); J96.22 Acute and chronic respiratory failure with hypercapnia; J96.21 Acute and chronic respiratory failure with hypoxia; I50.9 Heart failure, unspecified; F32.A Depression, unspecified; E66.811 Obesity, class 1; F20.9 Schizophrenia, unspecified; Z20.822 Contact with and (suspected) exposure to COVID-19; Z68.31 Body mass index [BMI] 31.0-31.9, adult; M54.9 Dorsalgia, unspecified; G89.29 Other chronic pain; F41.9 Anxiety disorder, unspecified; G43.909 Migraine, unspecified, not intractable, without status migrainosus; F17.200 Nicotine dependence, unspecified, uncomplicated; E78.00 Pure hypercholesterolemia, unspecified; K21.9 Gastro-esophageal reflux disease without esophagitis; G62.9 Polyneuropathy, unspecified; I25.2 Old myocardial infarction; Z86.73 Personal history of transient ischemic attack (TIA), and cerebral infarction without residual deficits
CPT/HCPCS: 36415; 71046; 80048; 80061; 80305; 80320; 83036; 83605; 83880; 85025; 87040; 87081; 87804; 87811; 93005; 94640; 94760; 96374; 97161; 97530; 99285; G0378; J1650; J1956; J2919; Q0177

== ENCOUNTER 2025-02-11 21:16 | Emergency (ER) | payer MEDICAID ==
[~2025-02-11] VITALS: Ht 165.1 cm; Wt 89.0 kg
[~2025-02-11 21:16] MED LIST changes: +ARIP15TA68 PO; +CETI10TA14 PO; +ERGO500093 PO; +EZET10TA80 PO; +FLUT1BLS16 INH; +HYDR50TA65 PO; +RISP-31 PO
[2025-02-11 21:41] VITALS: BP 190/80; PULSE 84; RESP 15; O2SAT 95
--- NOTE | 2025-02-11 22:29 | Physician Documentation ---
History of Present Illness ~ Chief Complaint: Foot pain Stated Complaint: BURNING FOOT PAIN Time Seen by MD: 22:23 Primary Medical Doctor: jose rafael WOOD 59-year-old female who presents to the emergency department with complaint of right ankle and foot pain. Reports she injured it one week ago and continues to have antalgic gait. No obvious deformity yet tenderness to palpation to the ankle and the mid and forefoot. Tetanus witin 5 years: No Medication Reconciliation Allergies: Coded Allergies: Penicillins (Unverified Allergy, Intermediate, 12/11/24) divalproex sodium (Verified Allergy, Mild, 12/11/24) simvastatin (Verified Adverse Reaction, Intermediate, BLURRED VISION AND SLEEPY., 12/11/24) Scheduled Albuterol Sulfate (Ventolin Hfa), 2 PUFFS INH Q4HPRN Aripiprazole (Aripiprazole), 1 TAB PO BID, (Reported) Cetirizine HCl (Cetirizine HCl), 1 TAB PO DAILY, (Reported) Ergocalciferol (Vitamin D2) (Vitamin D2), 1 CAP PO Q7D, (Reported) Ezetimibe (Ezetimibe), 1 TAB PO DAILY, (Reported) Fluticasone/Umeclidin/Vilanter (Trelegy Ellipta 200-62.5-25), 1 PUFFS INH DAILY, (Reported) Hydroxyzine HCl (Hydroxyzine HCl), 1 TAB PO BID, (Reported) Pantoprazole Sodium (Pantoprazole Sodium), 1 TAB PO BID, (Reported) Prednisolone (Prednisolone), 1 TAB PO BID Risperidone (Risperidone), 1 TAB PO BID, (Reported) Past Medical History Past Medical History: CVA/TIA/Stroke, Migraine, Peripheral Neuropathy, Congestive Heart Failure, High Cholesterol, Myocardial Infarction, Asthma, COPD, Pneumonia, Previously Intubated, GERD, Arthritis, Chronic Back Pain, Osteopenia, Anxiety, Depression, Schizophrenia Past Surgical History: no surgical history Patient History: Patient reports no known family medical history. Alcohol Use: None Drug Use: none Lives with: Family Lives In: Home Occupation: disabled Review of Systems All Other Systems at this time: Reviewed and Negative Musculoskeletal: Reports: see HPI Physical Exam Vital Signs: RN Vital Signs have been reviewed: Yes, Temperature: 96.3, Source: Temporal, Heart Rate: 84, Respiratory Rate: 15, BP: 190/80, Pulse Oximetry: 95, Weight: 89.000 General Appearance: alert, WD/WN, mild distress Head: normal inspection EENT: PERRL/EOMI Neck: non-tender Respiratory: no respiratory distress Chest: no accessory muscle use Back: normal inspection Pelvis: normal Hips: normal inspection Legs: normal inspection Knees: normal inspection Ligaments: normal Ankles: soft tissue tenderness, swelling; No: deformity Achilles Tendon: normal Feet: normal inspection Digit: normal inspection Distal Function: no motor deficit Skin: normal color, warm/dry Progress Results/Orders Results/Orders Orders - ANIKA EATON PAC Foot, Complete (3vw Min) (02/11/25 22:49) Ankle, Complete(3vw Min) (02/11/25 22:49) Acetaminophen 325mg Tablet (Tylenol Tabl (02/11/25 23:25) Completed Orders - ANIKA EATON PAC Foot, Complete (3vw Min) (02/11/25 22:49) Ankle, Complete(3vw Min) (02/11/25 22:49) Vital Signs 02/11/25 21:41 Temp 96.3 Pulse 84 Resp 15 B/P (MAP) 190/80 Pulse Ox 95 Medical Decision Making Additional information obtaine: N/A Findings 59-year-old female with complaint of right ankle and foot pain status post fall one week ago requires x-ray imaging to evaluate for acute or occult fracture or dislocations. X-ray imaging read by the radiologist as no fracture or dislocations. Patient provided pain management from a Tylenol and orthopedic cam walker boot for comfort and support. Discharged and aftercare instructions provided for patient. General Diff Dx:Considerations: Include: Contusion, Fracture, Neurovascular injury, Sprain Knee Diff Dx:Considerations: Include: Other Ankle Diff Dx:Considerations: Include: Arthritis, Contusion, DJD, Fracture- metatarsal, Fracture-fibula, Fracture-tibia, Gout, Hematoma, Neurovascular injury, Osteomyelitis, Rheumatoid arthritis, Sprain, Septic Foot Diff Dx:Considerations: Include: Other (Contributory) Toe Diff Dx:Considerations: Include: Other (Contributory noncontributory) Departure Disposition: HOME / SELF CARE / HOMELESS Impression: Primary Impression: Sprain of foot Qualified Codes: S93.601A - Unspecified sprain of right foot, initial encounter Additional Impression: Ankle sprain Qualified Codes: S93.401A - Sprain of unspecified ligament of right ankle, initial encounter Condition: Stable Discharge Instructions: Sprains Additional Instructions: Please wear the orthopedic boot for comfort and support and take Tylenol for discomfort as needed. Make follow up appointment with the primary care physician for consideration of orthopedic follow up if not better in 1-2 weeks. Thank you for visiting [facility]. Your x-ray imaging tonight is reassuring for no fracture. Have a beulah Sinhgmas. Referrals: NO PRIMARY CARE PROVIDER (PCP) Prescriptions Acetaminophen (Tylenol Arthritis) 650 Mg Tablet.sa 650 MG PO DAILY, #10 TAB.SR JUNE SUB Prov: ANIKA EATON 02/11/25 Education Educated: Patient Educated regarding: diagnosis, treatment, prognosis, need for follow up Signature Scribe Signature: . Attestation: . ANIKA EATON Feb 11, 2025 22:29
--- NOTE | 2025-02-11 23:09 | RADIOLOGY REPORT ---
EXAM: DI ANKLE, COMPLETE(3VW MIN) HISTORY: Antalgic gait RIGHT COMPARISON: DI ANKLE, COMPLETE(3VW MIN) on DOS: 09/25/23. TECHNIQUE: DI ANKLE, COMPLETE(3VW MIN) FINDINGS: No acute fracture or dislocation. No cortical irregularity or periosteal reaction to suggest osteomyelitis. Moderate arthritis of the talonavicular joint. Minimal retrocalcaneal enthesopathy. Osseous structures are demineralized. Soft tissues unremarkable. IMPRESSION: No acute osseous abnormality.
--- NOTE | 2025-02-11 23:12 | RADIOLOGY REPORT ---
EXAM: RIGHT FOOT, COMPLETE (3VW MIN) HISTORY: Antalgic gait RIGHT COMPARISON: DI FOOT, COMPLETE (3VW MIN) on DOS: 11/17/24. TECHNIQUE: RIGHT FOOT, COMPLETE (3VW MIN) FINDINGS: No acute fracture or dislocation. No cortical irregularity or periosteal reaction to suggest osteomyelitis. Moderate arthritis of the talonavicular joint. Chronic appearing small osteophyte/spur arising from the fibular tip. Minimal retrocalcaneal enthesopathy. Osseous structures are demineralized. Soft tissues unremarkable. IMPRESSION: No acute osseous abnormality.
[2025-02-11] MEDS ORDERED: ACET650T2 PO (23:28)
[2025-02-11 23:30] VITALS: TEMP 96.3
[2025-02-11] MEDS: ondansetron 4mg rapidly disintigrating tab PO ONE (23:45)
== END 2025-02-11 23:58 | disposition home or self-care (01) ==
LOC: ER 21:16
DX: S93.491A Sprain of other ligament of right ankle, initial encounter (principal); S93.601A Unspecified sprain of right foot, initial encounter; J44.9 Chronic obstructive pulmonary disease, unspecified; M19.90 Unspecified osteoarthritis, unspecified site; I50.9 Heart failure, unspecified; I25.2 Old myocardial infarction; G89.29 Other chronic pain; K21.9 Gastro-esophageal reflux disease without esophagitis; G43.909 Migraine, unspecified, not intractable, without status migrainosus; F41.9 Anxiety disorder, unspecified; F32.A Depression, unspecified; E78.00 Pure hypercholesterolemia, unspecified; F20.9 Schizophrenia, unspecified; Z86.73 Personal history of transient ischemic attack (TIA), and cerebral infarction without residual deficits; Z87.01 Personal history of pneumonia (recurrent); Z88.0 Allergy status to penicillin; Z88.8 Allergy status to other drugs, medicaments and biological substances; Z79.899 Other long term (current) drug therapy; X58.XXXA Exposure to other specified factors, initial encounter; Y93.89 Activity, other specified; Y92.89 Other specified places as the place of occurrence of the external cause; Y99.8 Other external cause status
CPT/HCPCS: 73610; 73630; 99284